=== PATIENT | female | born 1960 | race African-American/Black ===

== ENCOUNTER 2018-04-29 17:13 | Inpatient (IN) ==
[2018-04-29] MEDS ORDERED: VANCOMYCIN INJ 1,000 MG in SODIUM CHLORIDE 0.9% 250 ML IV STA (18:29)
[2018-04-29] MEDS ORDERED: GENTAMICIN INJ 80 MG in SODIUM CHLORIDE 0.9% 100 ML IV STA (18:29)
[2018-04-29] MEDS ORDERED: hydrALAZINE 20 MG/1 ML VIAL IV STA (18:30)
[2018-04-29] MEDS ORDERED: MORPHINE 4 MG/1 ML VIAL IV STA (18:30)
[2018-04-29] MEDS ORDERED: ONDANSETRON 4 MG/2 ML VIAL IV STA (18:30)
[2018-04-29 18:37] LABS: Basophils % 0.3 % (0.0-0.8); Eosinophils # 0.4 10*3/uL (0.0-0.87); Eosinophils % 5.8 % (0.00-10.9); Hematocrit 37.2 VOL% (35.7-47.0); Hemoglobin 12.1 GM/DL (12.0-16.0); Immature Granulocytes % 0.3 %; Immature Granulocytes Absolute 0.02 #; Lymphocytes # 1.9 10*3/uL (1.4-4.0); Lymphocytes % 26.3 % (21.3-54.2); Mean Corpuscular HGB Conc 32.5 GM/DL (32-36); Mean Corpuscular Hemoglobin 29 PG (27-34); Mean Corpuscular Volume 89.4 FL (87-102); Mean Platelet Volume 12.1 FL (9.6-12.0); Monocytes # 0.8 10*3/uL (0.11-0.8); Monocytes % 11.5 % (1.7-12.7); Neutrophils # 3.9 10*3/uL (1.4-7.4); Neutrophils % 55.8 % (38.7-73.9); Platelet Count 93 T/CUMM (130-400); Red Blood Count 4.16 MC/CUMM (3.8-5.5); Red Cell Distribution Width 14.3 % (9.3-17.3)
[2018-04-29 19:01] LABS: Albumin 2.9 G/DL (3.4-5.0); Bilirubin,Total 0.6 MG/DL (0.2-1.0); Calcium 8.2 MG/DL (8.5-10.1); Osmolality,Calculated 269.1 MOS/KG (273-304); Potassium 5.1 MMOL/L (3.5-5.1); Total Protein 7.9 G/DL (6.4-8.3)
[2018-04-29 19:11] LABS: Platelet Estimate Decreased
[2018-04-29 20:35] LABS: PT Patient Result 10.9 SECS
[2018-04-29] MEDS ORDERED: ONDANSETRON 4 MG/2 ML VIAL IV PRN (20:58)
[2018-04-29] MEDS ORDERED: MORPHINE 4 MG/1 ML VIAL IV PRN (20:58)
[2018-04-29] MEDS: PHENYTOIN ER 100 MG CAPSULE PO SCH (22:13)
[2018-04-30 05:54] LABS: Basophils % 0.4 % (0.0-0.8); Eosinophils # 0.5 10*3/uL (0.0-0.87); Eosinophils % 9.3 % (0.00-10.9); Hematocrit 33.1 VOL% (35.7-47.0); Hemoglobin 10.7 GM/DL (12.0-16.0); Immature Granulocytes % 0.2 %; Immature Granulocytes Absolute 0.01 #; Lymphocytes # 1.2 10*3/uL (1.4-4.0); Lymphocytes % 25.4 % (21.3-54.2); Mean Corpuscular HGB Conc 32.3 GM/DL (32-36); Mean Corpuscular Hemoglobin 29 PG (27-34); Mean Corpuscular Volume 89.9 FL (87-102); Mean Platelet Volume 11.2 FL (9.6-12.0); Monocytes # 0.6 10*3/uL (0.11-0.8); Neutrophils # 2.6 10*3/uL (1.4-7.4); Neutrophils % 52.7 % (38.7-73.9); Platelet Count 91 T/CUMM (130-400); Red Blood Count 3.68 MC/CUMM (3.8-5.5); Red Cell Distribution Width 14.3 % (9.3-17.3); White Blood Count 4.8 T/CUMM (4-12)
[2018-04-30 06:20] LABS: Albumin 2.3 G/DL (3.4-5.0); Bilirubin,Total 0.7 MG/DL (0.2-1.0); Calcium 7.8 MG/DL (8.5-10.1); Osmolality,Calculated 276.7 MOS/KG (273-304); Potassium 4.3 MMOL/L (3.5-5.1); Total Protein 6.3 G/DL (6.4-8.3)
[2018-04-30 06:21] LABS: Eosinophils 10 % (0-10); Hypochromasia 1+; Lymphocytes 22 % (20-55); Ovalocytes Slight; Platelet Estimate Decreased; Segmented Neutrophils 58 % (50-85); Total Cells Counted 100
[2018-04-30] MEDS: amLODIPine 10 MG TABLET PO SCH (09:15)
[2018-04-30] MEDS: PANTOPRAZOLE 40 MG TABLET PO SCH (09:15)
[2018-04-30] MEDS: CALCIUM ACETATE 667 MG CAPSULE PO SCH ×3 (09:15→17:40)
[2018-04-30] MEDS ORDERED: VANCOMYCIN INJ 500 MG in SODIUM CHLORIDE 0.9% 100 ML IV PRN (16:11)
[2018-04-30] MEDS ORDERED: GENTAMICIN INJ 60 MG in SODIUM CHLORIDE 0.9% 100 ML IV PRN (16:24)
[2018-04-30] MEDS ORDERED: GENTAMICIN INJ 90 MG in SODIUM CHLORIDE 0.9% 100 ML IV ONE (17:00)
[2018-04-30] MEDS ORDERED: VANCOMYCIN INJ 500 MG in SODIUM CHLORIDE 0.9% 100 ML IV ONE (17:00)
[2018-04-30] MEDS: PHENYTOIN ER 100 MG CAPSULE PO SCH (20:57)
[2018-05-01] MEDS: CALCIUM ACETATE 667 MG CAPSULE PO SCH ×2 (08:44→11:23)
[2018-05-01] MEDS: PANTOPRAZOLE 40 MG TABLET PO SCH (08:44)
[2018-05-01] MEDS: amLODIPine 10 MG TABLET PO SCH (08:44)
[2018-05-01 11:36] VITALS: BP 136/73
== END 2018-05-01 13:00 | disposition home or self-care (01) | DRG 981 ==
LOC: N.ED 17:13 → N.EDINP 18:58 → N.3E 19:09
PROVIDERS: ADMIT Surgery; ATTEND Surgery

== ENCOUNTER 2018-07-04 15:23 | Inpatient (IN) ==
[2018-07-04] MEDS ORDERED: METOCLOPRAMIDE 10 MG/2 ML VIAL IV STA ×2 (15:57→19:57)
[2018-07-04] MEDS ORDERED: KETOROLAC 30 MG/1 ML VIAL IV STA (15:57)
[2018-07-04] MEDS ORDERED: DICYCLOMINE 20 MG/2 ML AMP IM ONE (15:57)
[2018-07-04] MEDS ORDERED: ONDANSETRON 4 MG/2 ML VIAL IV STA ×2 (15:57→19:57)
[2018-07-04] MEDS ORDERED: ONDANSETRON 4 MG/2 ML VIAL ONE ×2 (16:18→19:59)
[2018-07-04] MEDS ORDERED: KETOROLAC 30 MG/1 ML VIAL ONE (16:18)
[2018-07-04] MEDS ORDERED: METOCLOPRAMIDE 10 MG/2 ML VIAL ONE ×2 (16:19→19:58)
[2018-07-04 16:26] LABS: Basophils % 0.6 % (0.0-0.8); Eosinophils # 0.6 10*3/uL (0.0-0.87); Hematocrit 32.1 VOL% (35.7-47.0); Hemoglobin 9.8 GM/DL (12.0-16.0); Immature Granulocytes % 0.3 %; Immature Granulocytes Absolute 0.02 #; Lymphocytes # 1.4 10*3/uL (1.4-4.0); Lymphocytes % 19.6 % (21.3-54.2); Mean Corpuscular HGB Conc 30.5 GM/DL (32-36); Mean Corpuscular Hemoglobin 29 PG (27-34); Mean Corpuscular Volume 93.9 FL (87-102); Mean Platelet Volume 11.6 FL (9.6-12.0); Monocytes # 0.5 10*3/uL (0.11-0.8); Monocytes % 7.1 % (1.7-12.7); Neutrophils # 4.4 10*3/uL (1.4-7.4); Neutrophils % 63.4 % (38.7-73.9); Platelet Count 139 T/CUMM (130-400); Red Blood Count 3.42 MC/CUMM (3.8-5.5); Red Cell Distribution Width 15.4 % (9.3-17.3)
[2018-07-04 16:37] LABS: Apearance,Urine CLEAR (Clear); Bacteria,Urine Few /HPF (Few); Bilirubin,Urine Negative (Negative); Blood, Urine Negative (Negative); Glucose,Urine (UA) Negative (Negative); Ketones,Urine Negative (Negative); Nitrite,Urine Negative (Negative); Protein,Urine 100 MG/DL; Squamous Epithelial Cell,Urine Occasional /HPF (0-10); Urine Color Yellow (Yellow); Urine Specific Gravity 1.006 (1.001-1.035); Urine Urobilinogen < 2.0 EU/DL (0.2-1.0); WBC,Urine 1 /HPF (0-6)
[2018-07-04 16:45] LABS: Albumin 3.4 G/DL (3.4-5.0); Bilirubin,Total 0.5 MG/DL (0.2-1.0); Osmolality,Calculated 281.3 MOS/KG (273-304); Potassium 3.3 MMOL/L (3.5-5.1); Total Protein 7.8 G/DL (6.4-8.3)
[2018-07-04] MEDS ORDERED: ACETAMINOPHEN 325 MG TABLET PO PRN (21:31)
[2018-07-04] MEDS ORDERED: DEXTROSE 50% 25 GM/50 ML VIAL IV PRN (21:31)
[2018-07-04] MEDS ORDERED: MORPHINE 4 MG/1 ML VIAL IV PRN (21:31)
[2018-07-04] MEDS ORDERED: GLUCAGON 1 MG VIAL IM PRN (21:31)
[2018-07-04] MEDS: PHENYTOIN ER 100 MG CAPSULE PO SCH (21:50)
[2018-07-04] MEDS: INSULIN LISPRO 100 UNIT/ML SUBCUT SCH (21:50)
[2018-07-04] MEDS: ONDANSETRON 4 MG/2 ML VIAL IV PRN (21:51)
[2018-07-05] MEDS: ONDANSETRON 4 MG/2 ML VIAL IV PRN (04:47)
[2018-07-05 05:58] LABS: Basophils % 0.3 % (0.0-0.8); Hematocrit 21.8 VOL% (35.7-47.0); Immature Granulocytes % 0.3 %; Immature Granulocytes Absolute 0.02 #; Lymphocytes # 0.9 10*3/uL (1.4-4.0); Lymphocytes % 12.6 % (21.3-54.2); Mean Corpuscular HGB Conc 29.8 GM/DL (32-36); Mean Corpuscular Hemoglobin 28 PG (27-34); Mean Platelet Volume 11.6 FL (9.6-12.0); Monocytes # 0.5 10*3/uL (0.11-0.8); Monocytes % 6.8 % (1.7-12.7); NRBC # 0.02 10*3/uL; Neutrophils # 5.4 10*3/uL (1.4-7.4); Platelet Count 133 T/CUMM (130-400); Red Cell Distribution Width 15.9 % (9.3-17.3); White Blood Count 6.7 T/CUMM (4-12)
[2018-07-05 06:32] LABS: Calcium 7.6 MG/DL (8.5-10.1); Osmolality,Calculated 275.7 MOS/KG (273-304); Potassium 4.1 MMOL/L (3.5-5.1)
[2018-07-05 06:33] LABS: Troponin I 0.069 NG/ML (0.00-0.045)
[2018-07-05 07:37] LABS: Red Blood Count 2.32 MC/CUMM (3.8-5.5)
[2018-07-05 07:39] LABS: Hemoglobin 6.5 GM/DL (12.0-16.0)
[2018-07-05 08:46] LABS: Hematocrit 20.7 VOL% (35.7-47.0)
[2018-07-05] MEDS: CALCIUM ACETATE 667 MG CAPSULE PO SCH ×3 (09:01→18:11)
[2018-07-05 09:02] LABS: Hemoglobin 6.3 GM/DL (12.0-16.0)
[2018-07-05] MEDS: PANTOPRAZOLE 40 MG TABLET PO SCH (09:02)
[2018-07-05] MEDS: amLODIPine 10 MG TABLET PO SCH (09:02)
[2018-07-05] MEDS: INSULIN LISPRO 100 UNIT/ML SUBCUT SCH ×4 (09:04→22:05)
[2018-07-05] MEDS ORDERED: SODIUM CHLORIDE 0.9% 1,000 ML IV PRN (09:17)
[2018-07-05] MEDS: PHENYTOIN ER 100 MG CAPSULE PO SCH (21:07)
[2018-07-06 06:01] LABS: Basophils % 0.5 % (0.0-0.8); Eosinophils # 0.5 10*3/uL (0.0-0.87); Eosinophils % 7.9 % (0.00-10.9); Hematocrit 19.7 VOL% (35.7-47.0); Immature Granulocytes % 0.5 %; Immature Granulocytes Absolute 0.03 #; Lymphocytes # 1.6 10*3/uL (1.4-4.0); Lymphocytes % 27.3 % (21.3-54.2); Mean Corpuscular Hemoglobin 29 PG (27-34); Mean Corpuscular Volume 93.4 FL (87-102); Mean Platelet Volume 11.2 FL (9.6-12.0); Monocytes # 0.6 10*3/uL (0.11-0.8); Monocytes % 9.7 % (1.7-12.7); NRBC # 0.02 10*3/uL; Neutrophils # 3.1 10*3/uL (1.4-7.4); Neutrophils % 54.1 % (38.7-73.9); Platelet Count 128 T/CUMM (130-400); Red Blood Count 2.11 MC/CUMM (3.8-5.5); Red Cell Distribution Width 17.4 % (9.3-17.3); White Blood Count 5.8 T/CUMM (4-12)
[2018-07-06 06:04] LABS: Hemoglobin 6.1 GM/DL (12.0-16.0)
[2018-07-06 06:28] LABS: Calcium 7.2 MG/DL (8.5-10.1); Osmolality,Calculated 278.5 MOS/KG (273-304); Potassium 4.4 MMOL/L (3.5-5.1)
[2018-07-06] MEDS ORDERED: SODIUM CHLORIDE 0.9% 1,000 ML IV PRN ×4 (07:31→07:47)
[2018-07-06] MEDS: CALCIUM ACETATE 667 MG CAPSULE PO SCH ×3 (08:22→17:07)
[2018-07-06] MEDS: PANTOPRAZOLE 40 MG TABLET PO SCH (08:25)
[2018-07-06] MEDS: INSULIN LISPRO 100 UNIT/ML SUBCUT SCH ×4 (11:18→21:27)
[2018-07-06] MEDS: amLODIPine 10 MG TABLET PO SCH (14:03)
[2018-07-06] MEDS: PHENYTOIN ER 100 MG CAPSULE PO SCH (21:26)
[2018-07-07 06:03] LABS: Basophils % 0.6 % (0.0-0.8); Eosinophils # 0.8 10*3/uL (0.0-0.87); Eosinophils % 11.8 % (0.00-10.9); Hematocrit 28.4 VOL% (35.7-47.0); Immature Granulocytes % 0.3 %; Immature Granulocytes Absolute 0.02 #; Lymphocytes # 1.4 10*3/uL (1.4-4.0); Lymphocytes % 20.3 % (21.3-54.2); Mean Corpuscular Hemoglobin 28 PG (27-34); Mean Corpuscular Volume 91.6 FL (87-102); Mean Platelet Volume 11.3 FL (9.6-12.0); Monocytes # 0.7 10*3/uL (0.11-0.8); Monocytes % 10.2 % (1.7-12.7); Neutrophils # 3.9 10*3/uL (1.4-7.4); Neutrophils % 56.8 % (38.7-73.9); Platelet Count 135 T/CUMM (130-400); Red Cell Distribution Width 17.2 % (9.3-17.3); White Blood Count 6.9 T/CUMM (4-12)
[2018-07-07 06:23] LABS: Hemoglobin 8.8 GM/DL (12.0-16.0)
[2018-07-07 06:35] LABS: Calcium 7.8 MG/DL (8.5-10.1); Osmolality,Calculated 277.5 MOS/KG (273-304); Potassium 4.5 MMOL/L (3.5-5.1)
[2018-07-07 06:45] LABS: Eosinophils 6 % (0-10); Lymphocytes 16 % (20-55); Segmented Neutrophils 70 % (50-85); Total Cells Counted 100
[2018-07-07 06:46] LABS: Platelet Estimate Decreased
[2018-07-07] MEDS: INSULIN LISPRO 100 UNIT/ML SUBCUT SCH ×4 (08:05→21:29)
[2018-07-07] MEDS: amLODIPine 10 MG TABLET PO SCH (08:07)
[2018-07-07] MEDS: PANTOPRAZOLE 40 MG TABLET PO SCH (08:07)
[2018-07-07] MEDS: CALCIUM ACETATE 667 MG CAPSULE PO SCH ×3 (08:08→16:09)
[2018-07-07] MEDS ORDERED: EPOETIN ALFA 10,000 UNIT/1 ML VIAL IV PRN (10:20)
[2018-07-07] MEDS: PHENYTOIN ER 100 MG CAPSULE PO SCH (21:28)
[2018-07-08 06:24] LABS: Basophils % 0.4 % (0.0-0.8); Eosinophils # 1.1 10*3/uL (0.0-0.87); Eosinophils % 15.5 % (0.00-10.9); Hematocrit 28.3 VOL% (35.7-47.0); Hemoglobin 8.8 GM/DL (12.0-16.0); Immature Granulocytes % 0.3 %; Immature Granulocytes Absolute 0.02 #; Lymphocytes # 1.4 10*3/uL (1.4-4.0); Lymphocytes % 19.8 % (21.3-54.2); Mean Corpuscular HGB Conc 31.1 GM/DL (32-36); Mean Corpuscular Hemoglobin 29 PG (27-34); Mean Corpuscular Volume 92.8 FL (87-102); Mean Platelet Volume 11.1 FL (9.6-12.0); Monocytes # 0.7 10*3/uL (0.11-0.8); Monocytes % 10.1 % (1.7-12.7); Neutrophils # 3.8 10*3/uL (1.4-7.4); Neutrophils % 53.9 % (38.7-73.9); Platelet Count 146 T/CUMM (130-400); Red Blood Count 3.05 MC/CUMM (3.8-5.5); Red Cell Distribution Width 16.7 % (9.3-17.3)
[2018-07-08 06:29] LABS: Calcium 7.6 MG/DL (8.5-10.1); Osmolality,Calculated 279.8 MOS/KG (273-304); Potassium 4.6 MMOL/L (3.5-5.1)
[2018-07-08 07:20] LABS: Band Neutrophils 2 % (0-10); Eosinophils 14 % (0-10); Lymphocytes 19 % (20-55); Segmented Neutrophils 59 % (50-85); Total Cells Counted 100
[2018-07-08 07:21] LABS: Anisocytosis 1+; Hypochromasia 1+; Platelet Estimate Normal
[2018-07-08] MEDS: INSULIN LISPRO 100 UNIT/ML SUBCUT SCH (07:56)
[2018-07-08] MEDS: PANTOPRAZOLE 40 MG TABLET PO SCH (08:13)
[2018-07-08] MEDS: CALCIUM ACETATE 667 MG CAPSULE PO SCH ×3 (08:13→16:14)
[2018-07-08] MEDS: amLODIPine 10 MG TABLET PO SCH (08:14)
[2018-07-08] MEDS: PHENYTOIN ER 100 MG CAPSULE PO SCH (21:29)
[2018-07-09 07:13] LABS: Basophils % 0.3 % (0.0-0.8); Eosinophils # 1.1 10*3/uL (0.0-0.87); Eosinophils % 15.2 % (0.00-10.9); Hemoglobin 9.6 GM/DL (12.0-16.0); Immature Granulocytes % 0.4 %; Immature Granulocytes Absolute 0.03 #; Lymphocytes # 1.1 10*3/uL (1.4-4.0); Lymphocytes % 15.9 % (21.3-54.2); Mean Corpuscular Hemoglobin 28 PG (27-34); Mean Corpuscular Volume 91.4 FL (87-102); Mean Platelet Volume 10.9 FL (9.6-12.0); Monocytes # 0.8 10*3/uL (0.11-0.8); Monocytes % 11.3 % (1.7-12.7); Neutrophils % 56.9 % (38.7-73.9); Platelet Count 147 T/CUMM (130-400); Red Blood Count 3.39 MC/CUMM (3.8-5.5); Red Cell Distribution Width 16.3 % (9.3-17.3); White Blood Count 7.1 T/CUMM (4-12)
[2018-07-09 07:26] LABS: Calcium 7.4 MG/DL (8.5-10.1); Osmolality,Calculated 274.1 MOS/KG (273-304); Potassium 4.8 MMOL/L (3.5-5.1)
[2018-07-09 07:34] LABS: Anisocytosis 1+; Eosinophils 16 % (0-10); Lymphocytes 7 % (20-55); Platelet Estimate Normal; Segmented Neutrophils 68 % (50-85); Total Cells Counted 100
[2018-07-09] MEDS: amLODIPine 10 MG TABLET PO SCH (10:34)
[2018-07-09] MEDS: PANTOPRAZOLE 40 MG TABLET PO SCH (10:34)
[2018-07-09] MEDS: CALCIUM ACETATE 667 MG CAPSULE PO SCH ×3 (10:34→17:49)
[2018-07-09] MEDS: PHENYTOIN ER 100 MG CAPSULE PO SCH (21:19)
[2018-07-10 06:51] LABS: Basophils % 0.3 % (0.0-0.8); Eosinophils # 0.9 10*3/uL (0.0-0.87); Eosinophils % 14.7 % (0.00-10.9); Hematocrit 30.4 VOL% (35.7-47.0); Hemoglobin 9.7 GM/DL (12.0-16.0); Immature Granulocytes % 0.3 %; Immature Granulocytes Absolute 0.02 #; Lymphocytes # 1.2 10*3/uL (1.4-4.0); Lymphocytes % 19.7 % (21.3-54.2); Mean Corpuscular HGB Conc 31.9 GM/DL (32-36); Mean Corpuscular Hemoglobin 28 PG (27-34); Mean Corpuscular Volume 88.6 FL (87-102); Mean Platelet Volume 11.3 FL (9.6-12.0); Monocytes # 0.8 10*3/uL (0.11-0.8); Monocytes % 12.7 % (1.7-12.7); Neutrophils # 3.3 10*3/uL (1.4-7.4); Neutrophils % 52.3 % (38.7-73.9); Platelet Count 169 T/CUMM (130-400); Red Blood Count 3.43 MC/CUMM (3.8-5.5); Red Cell Distribution Width 15.9 % (9.3-17.3); White Blood Count 6.2 T/CUMM (4-12)
[2018-07-10 07:19] LABS: Eosinophils 15 % (0-10); Hypochromasia 1+; Lymphocytes 18 % (20-55); Platelet Estimate Adequate; Segmented Neutrophils 53 % (50-85); Total Cells Counted 100
[2018-07-10 07:22] LABS: Calcium 7.7 MG/DL (8.5-10.1); Osmolality,Calculated 278.2 MOS/KG (273-304); Potassium 4.9 MMOL/L (3.5-5.1)
[2018-07-10] MEDS: PANTOPRAZOLE 40 MG TABLET PO SCH (08:34)
[2018-07-10] MEDS: amLODIPine 10 MG TABLET PO SCH (08:34)
[2018-07-10] MEDS: CALCIUM ACETATE 667 MG CAPSULE PO SCH (08:34)
[2018-07-10 09:14] VITALS: BP 123/78
== END 2018-07-10 12:08 | disposition home or self-care (01) | DRG 699 ==
LOC: N.ED 15:23 → SUATTDRO 18:50 → N.EDINP 18:50 → N.5E 21:13
PROVIDERS: ADMIT Internal Medicine

== ENCOUNTER 2018-07-23 11:34 | Inpatient (IN) ==
[2018-07-23] MEDS ORDERED: MORPHINE 4 MG/1 ML VIAL IV STA ×2 (12:19→14:29)
[2018-07-23] MEDS ORDERED: ONDANSETRON 4 MG/2 ML VIAL IV STA ×2 (12:19→14:29)
[2018-07-23 13:10] LABS: Bacteria,Urine Many /HPF (Few); Squamous Epithelial Cell,Urine Many /HPF (0-10); WBC,Urine 11 /HPF (0-6)
[2018-07-23 13:28] LABS: Apearance,Urine Slightly Cloudy (Clear); Glucose,Urine (UA) Negative (Negative); Ketones,Urine Negative (Negative); Nitrite,Urine Negative (Negative); Protein,Urine >=500 MG/DL; Urine Color Amber (Yellow); Urine Specific Gravity 1.005 (1.001-1.035)
[2018-07-23 13:29] LABS: Bilirubin,Urine Negative (Negative); Blood, Urine Trace mg/dL (Negative); Urine Urobilinogen 0.2 EU/DL (0.2-1.0)
[2018-07-23 13:47] LABS: Basophils % 0.4 % (0.0-0.8); Eosinophils # 0.3 10*3/uL (0.0-0.87); Eosinophils % 4.6 % (0.00-10.9); Hematocrit 32.3 VOL% (35.7-47.0); Hemoglobin 9.6 GM/DL (12.0-16.0); Immature Granulocytes % 0.3 %; Immature Granulocytes Absolute 0.02 #; Lymphocytes # 0.7 10*3/uL (1.4-4.0); Lymphocytes % 10.2 % (21.3-54.2); Mean Corpuscular HGB Conc 29.7 GM/DL (32-36); Mean Corpuscular Hemoglobin 27 PG (27-34); Mean Corpuscular Volume 91.2 FL (87-102); Mean Platelet Volume 10.1 FL (9.6-12.0); Monocytes # 0.4 10*3/uL (0.11-0.8); Monocytes % 6.2 % (1.7-12.7); Neutrophils # 5.3 10*3/uL (1.4-7.4); Neutrophils % 78.3 % (38.7-73.9); Platelet Count 170 T/CUMM (130-400); Red Blood Count 3.54 MC/CUMM (3.8-5.5); Red Cell Distribution Width 16.2 % (9.3-17.3); White Blood Count 6.8 T/CUMM (4-12)
[2018-07-23 14:10] LABS: Lactic Acid 0.6 MMOL/L (0.4-2.0)
[2018-07-23 14:13] LABS: Bilirubin,Total 0.5 MG/DL (0.2-1.0); Calcium 8.3 MG/DL (8.5-10.1); Osmolality,Calculated 280.4 MOS/KG (273-304); Potassium 3.7 MMOL/L (3.5-5.1); Total Protein 7.6 G/DL (6.4-8.3)
[2018-07-23] MEDS ORDERED: hydrALAZINE 20 MG/1 ML VIAL IV PRN (15:26)
[2018-07-23] MEDS ORDERED: PROMETHAZINE 25 MG/1 ML VIAL IM PRN (15:27)
[2018-07-23] MEDS ORDERED: hydrALAZINE 20 MG/1 ML VIAL IV STA (15:32)
[2018-07-23] MEDS ORDERED: LORazepam 2 MG/1 ML VIAL IV STA (15:33)
[2018-07-23] MEDS: SODIUM CHLORIDE 0.45% 1,000 ML IV SCH (16:19)
[2018-07-23] MEDS: cefTRIAXone 1,000 MG in SYRINGE 1 EACH IV SCH (16:56)
[2018-07-23] MEDS: cloNIDine 0.3 MG/24 HR PATCH TRANSDERM SCH (17:19)
[2018-07-23] MEDS: PHENYTOIN 100 MG/2 ML VIAL IV SCH ×2 (17:19→23:40)
[2018-07-23] MEDS: ONDANSETRON 4 MG/2 ML VIAL IV PRN (18:23)
[2018-07-24 05:13] LABS: Basophils % 0.5 % (0.0-0.8); Eosinophils # 0.2 10*3/uL (0.0-0.87); Eosinophils % 3.2 % (0.00-10.9); Hematocrit 31.8 VOL% (35.7-47.0); Hemoglobin 9.3 GM/DL (12.0-16.0); Immature Granulocytes % 0.5 %; Immature Granulocytes Absolute 0.03 #; Lymphocytes # 1.5 10*3/uL (1.4-4.0); Lymphocytes % 22.5 % (21.3-54.2); Mean Corpuscular HGB Conc 29.2 GM/DL (32-36); Mean Corpuscular Hemoglobin 27 PG (27-34); Mean Corpuscular Volume 91.9 FL (87-102); Mean Platelet Volume 10.7 FL (9.6-12.0); Monocytes # 0.5 10*3/uL (0.11-0.8); Monocytes % 7.8 % (1.7-12.7); Neutrophils # 4.3 10*3/uL (1.4-7.4); Neutrophils % 65.5 % (38.7-73.9); Platelet Count 176 T/CUMM (130-400); Red Blood Count 3.46 MC/CUMM (3.8-5.5); Red Cell Distribution Width 16.2 % (9.3-17.3); White Blood Count 6.6 T/CUMM (4-12)
[2018-07-24 05:35] LABS: Albumin 2.8 G/DL (3.4-5.0); Bilirubin,Total 0.8 MG/DL (0.2-1.0); Calcium 8.1 MG/DL (8.5-10.1); Osmolality,Calculated 281.3 MOS/KG (273-304); Total Protein 7.2 G/DL (6.4-8.3)
[2018-07-24] MEDS: PHENYTOIN 100 MG/2 ML VIAL IV SCH ×2 (10:31→17:26)
[2018-07-24] MEDS: cefTRIAXone 1,000 MG in SYRINGE 1 EACH IV SCH (17:23)
[2018-07-24] MEDS: SODIUM CHLORIDE 0.45% 1,000 ML IV SCH (17:29)
[2018-07-25] MEDS: PHENYTOIN 100 MG/2 ML VIAL IV SCH (01:52)
[2018-07-25 06:04] LABS: Basophils # 0.1 10*3/uL (0.0-0.2); Basophils % 0.6 % (0.0-0.8); Eosinophils # 0.7 10*3/uL (0.0-0.87); Eosinophils % 8.7 % (0.00-10.9); Hematocrit 33.1 VOL% (35.7-47.0); Hemoglobin 9.8 GM/DL (12.0-16.0); Immature Granulocytes % 0.4 %; Immature Granulocytes Absolute 0.03 #; Lymphocytes # 1.2 10*3/uL (1.4-4.0); Lymphocytes % 15.2 % (21.3-54.2); Mean Corpuscular HGB Conc 29.6 GM/DL (32-36); Mean Corpuscular Hemoglobin 28 PG (27-34); Mean Corpuscular Volume 92.7 FL (87-102); Monocytes # 0.4 10*3/uL (0.11-0.8); Monocytes % 5.3 % (1.7-12.7); Neutrophils # 5.4 10*3/uL (1.4-7.4); Neutrophils % 69.8 % (38.7-73.9); Platelet Count 172 T/CUMM (130-400); Red Blood Count 3.57 MC/CUMM (3.8-5.5); Red Cell Distribution Width 15.7 % (9.3-17.3); White Blood Count 7.7 T/CUMM (4-12)
[2018-07-25 06:17] LABS: Albumin 2.7 G/DL (3.4-5.0); Bilirubin,Total 0.9 MG/DL (0.2-1.0); Calcium 7.5 MG/DL (8.5-10.1); Osmolality,Calculated 280.7 MOS/KG (273-304); Potassium 4.4 MMOL/L (3.5-5.1); Total Protein 7.2 G/DL (6.4-8.3)
[2018-07-25] MEDS: MORPHINE 4 MG/1 ML VIAL IV PRN ×2 (15:32→20:35)
[2018-07-25] MEDS: ONDANSETRON 4 MG/2 ML VIAL IV PRN ×2 (15:37→20:35)
[2018-07-25] MEDS: SODIUM CHLORIDE 0.45% 1,000 ML IV SCH (15:40)
[2018-07-25] MEDS: IRON SUCROSE 100 MG/5 ML VIAL IV SCH (16:08)
[2018-07-25] MEDS: cefTRIAXone 1,000 MG in SYRINGE 1 EACH IV SCH (16:28)
[2018-07-25] MEDS: PHENYTOIN INJ 200 MG in SODIUM CHLORIDE 0.9% 100 ML IV SCH (20:38)
[2018-07-26 05:42] LABS: Basophils % 0.5 % (0.0-0.8); Eosinophils # 0.8 10*3/uL (0.0-0.87); Eosinophils % 13.3 % (0.00-10.9); Hematocrit 32.4 VOL% (35.7-47.0); Hemoglobin 9.5 GM/DL (12.0-16.0); Immature Granulocytes % 0.2 %; Immature Granulocytes Absolute 0.01 #; Lymphocytes # 1.1 10*3/uL (1.4-4.0); Lymphocytes % 18.9 % (21.3-54.2); Mean Corpuscular HGB Conc 29.3 GM/DL (32-36); Mean Corpuscular Hemoglobin 27 PG (27-34); Mean Corpuscular Volume 91.5 FL (87-102); Mean Platelet Volume 10.7 FL (9.6-12.0); Monocytes # 0.4 10*3/uL (0.11-0.8); Monocytes % 6.6 % (1.7-12.7); Neutrophils # 3.4 10*3/uL (1.4-7.4); Neutrophils % 60.5 % (38.7-73.9); Platelet Count 141 T/CUMM (130-400); Red Blood Count 3.54 MC/CUMM (3.8-5.5); Red Cell Distribution Width 15.4 % (9.3-17.3); White Blood Count 5.6 T/CUMM (4-12)
[2018-07-26 05:57] LABS: Albumin 2.7 G/DL (3.4-5.0); Bilirubin,Total 0.9 MG/DL (0.2-1.0); Calcium 7.7 MG/DL (8.5-10.1); Osmolality,Calculated 275.8 MOS/KG (273-304); Potassium 4.5 MMOL/L (3.5-5.1); Total Protein 7.4 G/DL (6.4-8.3)
[2018-07-26 06:10] LABS: Eosinophils 9 % (0-10); Hypochromasia 1+; Lymphocytes 19 % (20-55); Microcytosis 1+; Segmented Neutrophils 70 % (50-85); Total Cells Counted 100
[2018-07-26 06:11] LABS: Ovalocytes Few; Platelet Estimate Adequate
[2018-07-26 06:12] LABS: Atypical Lymphocytes Few
[2018-07-26] MEDS: MORPHINE 4 MG/1 ML VIAL IV PRN ×3 (08:30→23:26)
[2018-07-26] MEDS: PHENYTOIN INJ 200 MG in SODIUM CHLORIDE 0.9% 100 ML IV SCH ×2 (08:32→20:06)
[2018-07-26] MEDS: cefTRIAXone 1,000 MG in SYRINGE 1 EACH IV SCH (17:00)
[2018-07-26] MEDS: SODIUM CHLORIDE 0.45% 1,000 ML IV SCH (17:09)
[2018-07-27] MEDS ORDERED: ceFAZolin 1,000 MG in SYRINGE 1 EACH IV ONE (06:30)
[2018-07-27] MEDS ORDERED: MANNITOL 100 GM/500 ML BAG IV ONE (06:38)
[2018-07-27] MEDS ORDERED: ALBUMIN 5% 12.5 GM/250 ML VIAL IV ONE (06:38)
[2018-07-27] MEDS ORDERED: MICROFIBRILLAR COLLAGEN POWDER 1 GM CAN TOP ONE (08:48)
[2018-07-27 09:05] LABS: ABG Base Excess -4.3 MMOL/L (-2.5-2.5); ABG HCO3 20.9 MMOL/L (20-26); ABG Oxygen Saturation 99.9 % (95-100); ABG PCO2 28.4 MM HG (35-48); ABG PH 7.434 (7.35-7.45); ABG TCO2 17.3 MMOL/L (23-27); Glucose Heart Surgery 96 MG/DL (74-106); Hematocrit Heart Surgery 30.3 PERCENT (37-47); Hemoglobin Heart Surgery 9.8 G/DL (12.0-16.0); Potassium Heart/CVR 4.2 MMOL/L (3.5-5.1)
[2018-07-27] MEDS ORDERED: ROPIVACAINE 0.5% 30 ML VIAL ONE (09:15)
[2018-07-27] MEDS ORDERED: PROPOFOL 200 MG/20 ML VIAL IV ONE (10:01)
[2018-07-27 10:02] LABS: Apearance,Urine CLEAR (Clear); Bilirubin,Urine Negative (Negative); Blood, Urine Moderate mg/dL (Negative); Glucose,Urine (UA) Negative (Negative); Hyaline Casts,Urine 1 /LPF (0-3); Ketones,Urine Negative (Negative); Mucus,Urine Occasional /LPF (Occasional); Nitrite,Urine Negative (Negative); Protein,Urine 100 MG/DL; RBC,Urine 20 /HPF (0-4); Squamous Epithelial Cell,Urine Occasional /HPF (0-10); Urine Color Amber (Yellow); Urine Specific Gravity 1.015 (1.001-1.035); Urine Urobilinogen < 2.0 EU/DL (0.2-1.0); WBC,Urine 24 /HPF (0-6)
[2018-07-27] MEDS ORDERED: DESFLURANE 1 UNIT/15 MINUTE INH ONE (10:02)
[2018-07-27] MEDS ORDERED: ONDANSETRON 4 MG/2 ML VIAL ONE (10:03)
[2018-07-27] MEDS ORDERED: MIDAZOLAM 2 MG/2 ML VIAL ONE (10:03)
[2018-07-27] MEDS ORDERED: NEOSTIGMINE 10 MG/10 ML VIAL ONE (10:04)
[2018-07-27] MEDS ORDERED: ESMOLOL 100 MG/10 ML VIAL IV ONE (10:04)
[2018-07-27] MEDS ORDERED: GLYCOPYRROLATE 0.4 MG/2 ML VIAL ONE (10:04)
[2018-07-27] MEDS ORDERED: ROCURONIUM 100 MG/10 ML VIAL IV ONE (10:04)
[2018-07-27] MEDS ORDERED: LABETALOL 100 MG/20 ML VIAL IV ONE (10:04)
[2018-07-27] MEDS ORDERED: SODIUM CHLORIDE 0.9% 500 ML IV ONE (10:04)
[2018-07-27] MEDS ORDERED: PHENYLEPHRINE 1 MG/10 ML SYRINGE IV ONE (10:04)
[2018-07-27] MEDS: MORPHINE 4 MG/1 ML VIAL IV PRN ×4 (10:48→21:55)
[2018-07-27] MEDS: ONDANSETRON 4 MG/2 ML VIAL IV PRN ×2 (10:49→14:53)
[2018-07-27] MEDS: PHENYTOIN INJ 200 MG in SODIUM CHLORIDE 0.9% 100 ML IV SCH ×2 (10:50→20:37)
[2018-07-27] MEDS: cefTRIAXone 1,000 MG in SYRINGE 1 EACH IV SCH (17:00)
[2018-07-27] MEDS: SODIUM CHLORIDE 0.45% 1,000 ML IV SCH (17:09)
[2018-07-28] MEDS: MORPHINE 4 MG/1 ML VIAL IV PRN ×4 (02:34→16:08)
[2018-07-28] MEDS: ONDANSETRON 4 MG/2 ML VIAL IV PRN ×2 (10:33→16:09)
[2018-07-28] MEDS: PHENYTOIN INJ 200 MG in SODIUM CHLORIDE 0.9% 100 ML IV SCH (16:36)
[2018-07-28] MEDS: PHENYTOIN ER 100 MG CAPSULE PO SCH ×2 (17:20→22:33)
[2018-07-28] MEDS: cefTRIAXone 1,000 MG in SYRINGE 1 EACH IV SCH (17:22)
[2018-07-29] MEDS: MORPHINE 4 MG/1 ML VIAL IV PRN ×3 (04:47→19:56)
[2018-07-29 05:26] LABS: Basophils % 0.3 % (0.0-0.8); Eosinophils # 0.6 10*3/uL (0.0-0.87); Eosinophils % 10.3 % (0.00-10.9); Hematocrit 26.3 VOL% (35.7-47.0); Immature Granulocytes % 0.5 %; Immature Granulocytes Absolute 0.03 #; Lymphocytes # 0.7 10*3/uL (1.4-4.0); Lymphocytes % 11.4 % (21.3-54.2); Mean Corpuscular HGB Conc 30.4 GM/DL (32-36); Mean Corpuscular Hemoglobin 27 PG (27-34); Mean Corpuscular Volume 89.8 FL (87-102); Mean Platelet Volume 12.1 FL (9.6-12.0); Monocytes # 0.6 10*3/uL (0.11-0.8); Monocytes % 9.7 % (1.7-12.7); Neutrophils % 67.8 % (38.7-73.9); Platelet Count 117 T/CUMM (130-400); Red Blood Count 2.93 MC/CUMM (3.8-5.5)
[2018-07-29 05:42] LABS: Albumin 2.6 G/DL (3.4-5.0); Calcium 7.2 MG/DL (8.5-10.1); Osmolality,Calculated 268.4 MOS/KG (273-304); Potassium 4.6 MMOL/L (3.5-5.1); Total Protein 6.8 G/DL (6.4-8.3)
[2018-07-29] MEDS: CALCIUM ACETATE 667 MG CAPSULE PO SCH ×3 (10:08→17:28)
[2018-07-29] MEDS: PHENYTOIN ER 100 MG CAPSULE PO SCH ×2 (10:09→21:52)
[2018-07-29] MEDS: cefTRIAXone 1,000 MG in SYRINGE 1 EACH IV SCH (18:14)
[2018-07-29] MEDS ORDERED: MORPHINE 4 MG/1 ML VIAL ONE (19:53)
[2018-07-30 05:40] LABS: Basophils % 0.2 % (0.0-0.8); Eosinophils # 0.8 10*3/uL (0.0-0.87); Eosinophils % 13.9 % (0.00-10.9); Hematocrit 23.6 VOL% (35.7-47.0); Hemoglobin 7.2 GM/DL (12.0-16.0); Immature Granulocytes % 0.2 %; Immature Granulocytes Absolute 0.01 #; Lymphocytes # 0.9 10*3/uL (1.4-4.0); Lymphocytes % 15.6 % (21.3-54.2); Mean Corpuscular HGB Conc 30.5 GM/DL (32-36); Mean Corpuscular Hemoglobin 27 PG (27-34); Mean Corpuscular Volume 89.1 FL (87-102); Mean Platelet Volume 11.9 FL (9.6-12.0); Monocytes # 0.5 10*3/uL (0.11-0.8); Monocytes % 9.2 % (1.7-12.7); Neutrophils # 3.5 10*3/uL (1.4-7.4); Neutrophils % 60.9 % (38.7-73.9); Platelet Count 128 T/CUMM (130-400); Red Blood Count 2.65 MC/CUMM (3.8-5.5); Red Cell Distribution Width 15.8 % (9.3-17.3); White Blood Count 5.8 T/CUMM (4-12)
[2018-07-30 06:08] LABS: Albumin 2.3 G/DL (3.4-5.0); Bilirubin,Total 0.7 MG/DL (0.2-1.0); Calcium 6.9 MG/DL (8.5-10.1); Osmolality,Calculated 266.8 MOS/KG (273-304); Potassium 3.9 MMOL/L (3.5-5.1); Total Protein 6.2 G/DL (6.4-8.3)
[2018-07-30 06:09] LABS: Eosinophils 11 % (0-10); Lymphocytes 20 % (20-55); Segmented Neutrophils 65 % (50-85); Total Cells Counted 100
[2018-07-30 06:10] LABS: Platelet Estimate Decreased; Polychromasia Few
[2018-07-30] MEDS ORDERED: SODIUM CHLORIDE 0.9% 1,000 ML IV PRN (07:06)
[2018-07-30] MEDS: CALCIUM ACETATE 667 MG CAPSULE PO SCH ×3 (10:02→18:15)
[2018-07-30] MEDS: SODIUM CHLORIDE 1 GM TABLET PO SCH ×2 (10:02→20:38)
[2018-07-30] MEDS: PHENYTOIN ER 100 MG CAPSULE PO SCH ×2 (10:03→20:38)
[2018-07-30] MEDS: cloNIDine 0.3 MG/24 HR PATCH TRANSDERM SCH (10:03)
[2018-07-30] MEDS ORDERED: BISACODYL 10 MG SUPP RECTAL ONE (10:14)
[2018-07-30] MEDS: MORPHINE 4 MG/1 ML VIAL IV PRN (10:56)
[2018-07-30] MEDS: ONDANSETRON 4 MG/2 ML VIAL IV PRN ×2 (10:56→20:58)
[2018-07-30 14:19] LABS: Hematocrit 25.7 VOL% (35.7-47.0); Hemoglobin 7.5 GM/DL (12.0-16.0)
[2018-07-30] MEDS: cefTRIAXone 1,000 MG in SYRINGE 1 EACH IV SCH (18:15)
[2018-07-30] MEDS: SODIUM CHLORIDE 0.45% 1,000 ML IV SCH ×2 (19:42→19:43)
[2018-07-31 05:44] LABS: Basophils % 0.4 % (0.0-0.8); Eosinophils # 0.6 10*3/uL (0.0-0.87); Eosinophils % 11.6 % (0.00-10.9); Hematocrit 23.3 VOL% (35.7-47.0); Immature Granulocytes % 0.2 %; Immature Granulocytes Absolute 0.01 #; Lymphocytes # 0.7 10*3/uL (1.4-4.0); Lymphocytes % 13.8 % (21.3-54.2); Mean Corpuscular Hemoglobin 26 PG (27-34); Mean Corpuscular Volume 87.9 FL (87-102); Mean Platelet Volume 10.7 FL (9.6-12.0); Monocytes # 0.5 10*3/uL (0.11-0.8); Monocytes % 10.2 % (1.7-12.7); Neutrophils # 3.2 10*3/uL (1.4-7.4); Neutrophils % 63.8 % (38.7-73.9); Platelet Count 152 T/CUMM (130-400); Red Blood Count 2.65 MC/CUMM (3.8-5.5); Red Cell Distribution Width 15.8 % (9.3-17.3)
[2018-07-31 06:21] LABS: Albumin 2.3 G/DL (3.4-5.0); Bilirubin,Total 0.8 MG/DL (0.2-1.0); Osmolality,Calculated 265.2 MOS/KG (273-304); Potassium 4.5 MMOL/L (3.5-5.1); Total Protein 6.2 G/DL (6.4-8.3)
[2018-07-31 06:37] LABS: Eosinophils 22 % (0-10); Lymphocytes 15 % (20-55); Metamyelocytes 1 %; Microcytosis Slight; Platelet Estimate Adequate; Polychromasia Few; Segmented Neutrophils 57 % (50-85); Total Cells Counted 100
[2018-07-31] MEDS ORDERED: EPOETIN ALFA 2,000 UNIT/1 ML VIAL IV PRN (08:54)
[2018-07-31] MEDS: MORPHINE 4 MG/1 ML VIAL IV PRN (11:33)
[2018-07-31] MEDS: CALCIUM ACETATE 667 MG CAPSULE PO SCH ×3 (13:52→16:45)
[2018-07-31] MEDS: PHENYTOIN ER 100 MG CAPSULE PO SCH ×2 (13:52→21:09)
[2018-07-31] MEDS: SODIUM CHLORIDE 1 GM TABLET PO SCH ×2 (13:52→21:09)
[2018-07-31] MEDS: cefTRIAXone 1,000 MG in SYRINGE 1 EACH IV SCH (18:00)
[2018-07-31 22:16] LABS: Hematocrit 28.5 VOL% (35.7-47.0)
[2018-07-31 22:20] LABS: Hemoglobin 9.1 GM/DL (12.0-16.0)
[2018-08-01 04:53] LABS: Basophils % 0.7 % (0.0-0.8); Eosinophils # 0.3 10*3/uL (0.0-0.87); Eosinophils % 6.4 % (0.00-10.9); Hematocrit 27.6 VOL% (35.7-47.0); Hemoglobin 8.8 GM/DL (12.0-16.0); Immature Granulocytes % 0.6 %; Immature Granulocytes Absolute 0.03 #; Lymphocytes # 0.8 10*3/uL (1.4-4.0); Lymphocytes % 15.3 % (21.3-54.2); Mean Corpuscular HGB Conc 31.9 GM/DL (32-36); Mean Corpuscular Hemoglobin 27 PG (27-34); Mean Platelet Volume 11.1 FL (9.6-12.0); Monocytes # 0.8 10*3/uL (0.11-0.8); Monocytes % 15.1 % (1.7-12.7); Neutrophils # 3.3 10*3/uL (1.4-7.4); Neutrophils % 61.9 % (38.7-73.9); Platelet Count 112 T/CUMM (130-400); Red Blood Count 3.21 MC/CUMM (3.8-5.5); Red Cell Distribution Width 16.5 % (9.3-17.3); White Blood Count 5.4 T/CUMM (4-12)
[2018-08-01 05:16] LABS: Albumin 2.3 G/DL (3.4-5.0); Bilirubin,Total 1.1 MG/DL (0.2-1.0); Calcium 7.1 MG/DL (8.5-10.1); Osmolality,Calculated 271.4 MOS/KG (273-304); Total Protein 6.4 G/DL (6.4-8.3)
[2018-08-01] MEDS: PHENYTOIN ER 100 MG CAPSULE PO SCH (09:25)
[2018-08-01] MEDS: SODIUM CHLORIDE 1 GM TABLET PO SCH (09:25)
[2018-08-01] MEDS: CALCIUM ACETATE 667 MG CAPSULE PO SCH (09:26)
[2018-08-01] MEDS: IRON SUCROSE 100 MG/5 ML VIAL IV SCH (12:00)
[2018-08-01 13:49] VITALS: BP 148/73
== END 2018-08-01 11:50 | disposition home or self-care (01) | DRG 660 ==
LOC: N.ED 11:34 → SUATTDRO 14:53 → N.EDINP 14:53 → N.5E 15:39 → N.2W 15:39 → N.5E 16:59
PROVIDERS: ADMIT Internal Medicine; ATTEND Internal Medicine

== ENCOUNTER 2019-05-15 09:00 | Inpatient (IN) ==
[2019-05-15] MEDS ORDERED: ASPIRIN 325 MG TABLET PO STA (09:30)
[2019-05-15] MEDS ORDERED: ACETAMINOPHEN 500 MG TABLET PO STA (09:31)
[2019-05-15 10:23] LABS: Basophils % 0.3 % (0.0-0.8); Eosinophils # 0.1 10*3/uL (0.0-0.87); Eosinophils % 1.2 % (0.00-10.9); Hematocrit 34.5 VOL% (35.7-47.0); Hemoglobin 10.6 GM/DL (12.0-16.0); Immature Granulocytes % 0.4 %; Immature Granulocytes Absolute 0.03 #; Lymphocytes # 0.4 10*3/uL (1.4-4.0); Lymphocytes % 5.6 % (21.3-54.2); Mean Corpuscular HGB Conc 30.7 GM/DL (32-36); Mean Corpuscular Volume 92.2 FL (87-102); Mean Platelet Volume 11.6 FL (9.6-12.0); Monocytes % 2.7 % (1.7-12.7); Neutrophils % 89.8 % (38.7-73.9); Red Blood Count 3.74 MC/CUMM (3.8-5.5); Red Cell Distribution Width 14.4 % (9.3-17.3); White Blood Count 7.3 T/CUMM (4-12)
[2019-05-15 10:30] LABS: Partial Thromboplastin Time 31.3 SECS (0-40)
[2019-05-15 10:35] LABS: Platelet Count 72 T/CUMM (130-400)
[2019-05-15 10:40] LABS: Albumin 3.4 G/DL (3.4-5.0); Bilirubin,Total 0.8 MG/DL (0.2-1.0); Calcium 8.2 MG/DL (8.5-10.1); Total Protein 7.7 G/DL (6.4-8.3)
[2019-05-15 10:42] LABS: Hypochromasia 1+; Ovalocytes Slight; Platelet Estimate Decreased
[2019-05-15 10:43] LABS: Microcytosis Slight
[2019-05-15 11:23] LABS: Amorphous Crystals,Urine Occasional /HPF (Few); Apearance,Urine CLEAR (Clear); Bilirubin,Urine Negative (Negative); Blood, Urine Negative (Negative); Glucose,Urine (UA) Negative (Negative); Ketones,Urine Negative (Negative); Mucus,Urine Occasional /LPF (Occasional); Nitrite,Urine Negative (Negative); Protein,Urine 100 MG/DL; RBC,Urine 2 /HPF (0-4); Squamous Epithelial Cell,Urine Occasional /HPF (0-10); Urine Color Yellow (Yellow); Urine Specific Gravity 1.011 (1.001-1.035); Urine Urobilinogen < 2.0 EU/DL (0.2-1.0); WBC,Urine 1 /HPF (0-6)
[2019-05-15 11:58] LABS: Barbiturates Screen,Urine Negative (Negative); Benzodiazepines Screen,Urine Negative (Negative); Cannabinoid Screen,Urine Negative (Negative); Opiate Screen,Urine Negative (Negative); Phencyclidine Screen,Urine Negative (Negative)
[2019-05-15] MEDS ORDERED: ONDANSETRON 4 MG/2 ML VIAL IV PRN (12:10)
[2019-05-15] MEDS ORDERED: DEXTROSE 50% 25 GM/50 ML VIAL IV PRN (12:10)
[2019-05-15] MEDS ORDERED: LACTULOSE 20 GM/30 ML UDCUP PO PRN (12:10)
[2019-05-15] MEDS ORDERED: GLUCAGON 1 MG VIAL IM PRN (12:10)
[2019-05-15] MEDS ORDERED: cefTRIAXone 1,000 MG in SYRINGE 1 EACH IV SCH (12:30)
[2019-05-15] MEDS: INSULIN LISPRO 100 UNIT/ML SUBCUT SCH ×2 (15:36→20:55)
[2019-05-15] MEDS: PANTOPRAZOLE 40 MG TABLET PO SCH (18:03)
[2019-05-15] MEDS: GABAPENTIN 100 MG CAPSULE PO SCH ×2 (18:03→21:01)
[2019-05-15] MEDS ORDERED: ENOXAPARIN 30 MG/0.3 ML SYRINGE SUBCUT SCH (21:00)
[2019-05-15] MEDS: ACETAMINOPHEN 325 MG TABLET PO PRN (21:00)
[2019-05-16] MEDS: ALUMINUM/MAGNES/SIMETH MAX STR 30 ML UDCUP PO PRN ×2 (01:26→08:40)
[2019-05-16] MEDS: ACETAMINOPHEN 325 MG TABLET PO PRN ×3 (01:26→17:02)
[2019-05-16 05:09] LABS: Basophils % 0.3 % (0.0-0.8); Eosinophils # 0.2 10*3/uL (0.0-0.87); Hematocrit 31.4 VOL% (35.7-47.0); Hemoglobin 9.8 GM/DL (12.0-16.0); Immature Granulocytes % 0.3 %; Immature Granulocytes Absolute 0.02 #; Lymphocytes # 0.6 10*3/uL (1.4-4.0); Lymphocytes % 7.8 % (21.3-54.2); Mean Corpuscular HGB Conc 31.2 GM/DL (32-36); Mean Corpuscular Volume 91.3 FL (87-102); Mean Platelet Volume 12.4 FL (9.6-12.0); Monocytes % 5.5 % (1.7-12.7); Neutrophils % 83.1 % (38.7-73.9); Platelet Count 79 T/CUMM (130-400); Red Blood Count 3.44 MC/CUMM (3.8-5.5); Red Cell Distribution Width 14.3 % (9.3-17.3)
[2019-05-16 05:36] LABS: Calcium 7.7 MG/DL (8.5-10.1); Osmolality,Calculated 283.7 MOS/KG (273-304)
[2019-05-16 05:45] LABS: Anisocytosis 1+; Platelet Estimate Decreased
[2019-05-16] MEDS: PANTOPRAZOLE 40 MG TABLET PO SCH (08:24)
[2019-05-16] MEDS: ASPIRIN EC 81 MG TABLET PO SCH (08:24)
[2019-05-16] MEDS: GABAPENTIN 100 MG CAPSULE PO SCH (08:24)
[2019-05-16] MEDS: BISACODYL 5 MG TABLET PO PRN (08:39)
[2019-05-16] MEDS ORDERED: ceFAZolin 2,000 MG in PREMIX 1 EACH IV ONE (10:30)
[2019-05-16] MEDS ORDERED: MORPHINE 4 MG/1 ML VIAL ONE (14:16)
[2019-05-16] MEDS ORDERED: ALUM/MAG/SIMETH/LIDO VISC 1:1 30 ML BOTTLE PO ONE (14:19)
[2019-05-16] MEDS ORDERED: MORPHINE 4 MG/1 ML VIAL IV ONE (14:21)
[2019-05-16] MEDS: amLODIPine 10 MG TABLET PO SCH (14:26)
[2019-05-16] MEDS: traMADol 50 MG TABLET PO SCH ×2 (15:21→21:39)
[2019-05-16] MEDS: LIDOCAINE 5% PATCH TRANSDERM SCH (15:21)
[2019-05-16] MEDS: GABAPENTIN 300 MG CAPSULE PO SCH ×2 (15:21→21:40)
[2019-05-16 16:20] LABS: Troponin I 0.053 NG/ML (0.00-0.045)
[2019-05-16] MEDS ORDERED: GABAPENTIN 300 MG CAPSULE PO SCH (21:00)
[2019-05-17 05:19] LABS: Basophils % 0.5 % (0.0-0.8); Eosinophils # 0.2 10*3/uL (0.0-0.87); Eosinophils % 3.3 % (0.00-10.9); Hemoglobin 9.7 GM/DL (12.0-16.0); Immature Granulocytes % 0.2 %; Immature Granulocytes Absolute 0.01 #; Lymphocytes # 1.7 10*3/uL (1.4-4.0); Lymphocytes % 26.2 % (21.3-54.2); Mean Corpuscular HGB Conc 31.3 GM/DL (32-36); Mean Corpuscular Volume 91.7 FL (87-102); Mean Platelet Volume 12.5 FL (9.6-12.0); Monocytes % 9.3 % (1.7-12.7); Neutrophils % 60.5 % (38.7-73.9); Platelet Count 93 T/CUMM (130-400); Red Blood Count 3.38 MC/CUMM (3.8-5.5); Red Cell Distribution Width 14.1 % (9.3-17.3); White Blood Count 6.5 T/CUMM (4-12)
[2019-05-17 05:45] LABS: Eosinophils 2 % (0-10); Lymphocytes 26 % (20-55); Segmented Neutrophils 64 % (50-85); Total Cells Counted 100
[2019-05-17 05:46] LABS: Hypochromasia 1+; Ovalocytes Slight; Platelet Estimate Decreased
[2019-05-17 06:04] LABS: Calcium 7.7 MG/DL (8.5-10.1)
[2019-05-17] MEDS ORDERED: MORPHINE 4 MG/1 ML VIAL IV ONE (11:34)
[2019-05-17] MEDS: LIDOCAINE 5% PATCH TRANSDERM SCH (11:43)
[2019-05-17] MEDS: GABAPENTIN 300 MG CAPSULE PO SCH ×3 (13:08→21:07)
[2019-05-17] MEDS ORDERED: ceFAZolin 2,000 MG in PREMIX 1 EACH IV ONE ×2 (17:00→18:14)
[2019-05-17] MEDS: traMADol 50 MG TABLET PO SCH ×2 (17:35→17:46)
[2019-05-17] MEDS: PANTOPRAZOLE 40 MG TABLET PO SCH (17:46)
[2019-05-17] MEDS: amLODIPine 10 MG TABLET PO SCH (17:46)
[2019-05-17] MEDS: ASPIRIN EC 81 MG TABLET PO SCH (17:46)
[2019-05-17] MEDS: ALUMINUM/MAGNES/SIMETH MAX STR 30 ML UDCUP PO PRN (18:16)
[2019-05-18] MEDS: traMADol 50 MG TABLET PO SCH ×3 (00:45→21:44)
[2019-05-18] MEDS ORDERED: PROPOFOL 200 MG/20 ML VIAL IV ONE (07:27)
[2019-05-18] MEDS ORDERED: PHENYLEPHRINE 1 MG/10 ML SYRINGE IV ONE (07:27)
[2019-05-18] MEDS ORDERED: ETOMIDATE 40 MG/20 ML VIAL IV ONE (07:27)
[2019-05-18 09:52] LABS: Basophils % 0.7 % (0.0-0.8); Eosinophils # 0.4 10*3/uL (0.0-0.87); Eosinophils % 8.4 % (0.00-10.9); Hematocrit 32.1 VOL% (35.7-47.0); Hemoglobin 10.1 GM/DL (12.0-16.0); Immature Granulocytes % 0.2 %; Immature Granulocytes Absolute 0.01 #; Lymphocytes # 1.1 10*3/uL (1.4-4.0); Lymphocytes % 25.3 % (21.3-54.2); Mean Corpuscular HGB Conc 31.5 GM/DL (32-36); Mean Corpuscular Volume 90.4 FL (87-102); Mean Platelet Volume 11.7 FL (9.6-12.0); Monocytes % 10.7 % (1.7-12.7); Neutrophils % 54.7 % (38.7-73.9); Platelet Count 121 T/CUMM (130-400); Red Blood Count 3.55 MC/CUMM (3.8-5.5); Red Cell Distribution Width 14.1 % (9.3-17.3); White Blood Count 4.2 T/CUMM (4-12)
[2019-05-18] MEDS: PANTOPRAZOLE 40 MG TABLET PO SCH (10:05)
[2019-05-18] MEDS: ASPIRIN EC 81 MG TABLET PO SCH (10:05)
[2019-05-18] MEDS: amLODIPine 10 MG TABLET PO SCH (10:05)
[2019-05-18] MEDS: GABAPENTIN 300 MG CAPSULE PO SCH ×3 (10:05→21:43)
[2019-05-18] MEDS: LIDOCAINE 5% PATCH TRANSDERM SCH (10:06)
[2019-05-18 10:21] LABS: Calcium 7.7 MG/DL (8.5-10.1); Osmolality,Calculated 279.1 MOS/KG (273-304)
[2019-05-18] MEDS: ALUMINUM/MAGNES/SIMETH MAX STR 30 ML UDCUP PO PRN (23:47)
[2019-05-19] MEDS: GABAPENTIN 300 MG CAPSULE PO SCH (08:10)
[2019-05-19] MEDS: traMADol 50 MG TABLET PO SCH (08:10)
[2019-05-19] MEDS: PANTOPRAZOLE 40 MG TABLET PO SCH (08:10)
[2019-05-19] MEDS: amLODIPine 10 MG TABLET PO SCH (13:05)
[2019-05-19] MEDS: ASPIRIN EC 81 MG TABLET PO SCH (13:05)
[2019-05-19] MEDS: BISACODYL 5 MG TABLET PO PRN (13:05)
[2019-05-19] MEDS: LIDOCAINE 5% PATCH TRANSDERM SCH (13:08)
[2019-05-19 13:16] VITALS: BP 144/86
[2019-05-19] MEDS ORDERED: ceFAZolin 3,000 MG in SYRINGE 1 EACH IV SCH (17:00)
[2019-05-22] MEDS ORDERED: ceFAZolin 2,000 MG in PREMIX 1 EACH IV SCH (17:00)
== END 2019-05-19 16:12 | disposition home or self-care (01) | DRG 871 ==
LOC: N.EDINP 09:00 → N.ED 09:00 → N.5E 12:47 → SUATTDRO 05-16 12:59
PROVIDERS: ADMIT Internal Medicine; ATTEND Internal Medicine

== ENCOUNTER 2019-06-09 11:48 | Observation (INO) ==
[2019-06-09] MEDS ORDERED: ORPHENADRINE 60 MG/2 ML VIAL IV STA (12:13)
[2019-06-09] MEDS ORDERED: METOPROLOL TARTRATE 5 MG/5 ML VIAL IV STA (12:13)
[2019-06-09] MEDS ORDERED: ASPIRIN 325 MG TABLET PO STA (12:13)
[2019-06-09] MEDS ORDERED: KETOROLAC 30 MG/1 ML VIAL IV STA (12:13)
[2019-06-09 13:07] LABS: Basophils % 1.1 % (0.0-0.8); Eosinophils # 0.5 10*3/uL (0.0-0.87); Eosinophils % 12.8 % (0.00-10.9); Hematocrit 23.7 VOL% (35.7-47.0); Hemoglobin 7.4 GM/DL (12.0-16.0); Immature Granulocytes % 0.3 %; Immature Granulocytes Absolute 0.01 #; Lymphocytes # 0.9 10*3/uL (1.4-4.0); Lymphocytes % 24.5 % (21.3-54.2); Mean Corpuscular HGB Conc 31.2 GM/DL (32-36); Mean Corpuscular Volume 92.9 FL (87-102); Mean Platelet Volume 11.4 FL (9.6-12.0); Monocytes % 8.8 % (1.7-12.7); Neutrophils % 52.5 % (38.7-73.9); Platelet Count 102 T/CUMM (130-400); Red Blood Count 2.55 MC/CUMM (3.8-5.5); Red Cell Distribution Width 15.2 % (9.3-17.3); White Blood Count 3.8 T/CUMM (4-12)
[2019-06-09 13:31] LABS: Alanine Aminotransferase < 6 U/L (13-56); Alkaline Phosphatase 136 U/L (45-117); Aspartate Amino Transferase 41 U/L (0-37); Blood Urea Nitrogen 17 MG/DL (7-18); Calcium 9.1 MG/DL (8.5-10.1); Glucose 89 MG/DL (74-106); Osmolality,Calculated 286.8 MOS/KG (273-304); Total Protein 7.7 G/DL (6.4-8.3); Troponin I < 0.015 NG/ML (0.00-0.045)
[2019-06-09 13:36] LABS: PT Patient Result 11.1 SECS (9.6-12.2); Partial Thromboplastin Time 30.1 SECS (20.8-36.0)
[2019-06-09 14:18] LABS: Eosinophils 12 % (0-10); Lymphocytes 23 % (20-55); Nucleated Red Blood Cells 1 (0-5); Segmented Neutrophils 63 % (50-85); Total Cells Counted 100
[2019-06-09 14:19] LABS: Anisocytosis 1+; Ovalocytes Few
[2019-06-09 14:20] LABS: Hypochromasia 2+
[2019-06-09 14:21] LABS: Platelet Estimate Decreased
[2019-06-09] MEDS ORDERED: ACETAMINOPHEN 325 MG TABLET PO PRN (14:35)
[2019-06-09] MEDS ORDERED: LACTULOSE 20 GM/30 ML UDCUP PO PRN (14:35)
[2019-06-09] MEDS ORDERED: ONDANSETRON 4 MG/2 ML VIAL IV PRN (14:35)
[2019-06-09] MEDS ORDERED: hydrALAZINE 20 MG/1 ML VIAL IV PRN (14:51)
[2019-06-09] MEDS ORDERED: LIDOCAINE 5% PATCH TRANSDERM PRN (15:01)
[2019-06-09] MEDS ORDERED: ceFAZolin 1,000 MG VIAL IV SCH (15:30)
[2019-06-09 15:33] LABS: Risk Ratio 2.02; VLDL CHOLESTEROL 11.6 MG/DL
[2019-06-09] MEDS ORDERED: NITROGLYCERIN SL 0.4 MG TABLET SL PRN (16:26)
[2019-06-09] MEDS ORDERED: LABETALOL 100 MG/20 ML VIAL IV ONE (16:43)
[2019-06-09] MEDS ORDERED: hydrALAZINE 20 MG/1 ML VIAL IV ONE (16:43)
[2019-06-09] MEDS: MORPHINE 4 MG/1 ML VIAL IV PRN (17:13)
[2019-06-09 17:16] LABS: Eosinophils # 0.5 10*3/uL (0.0-0.87); Eosinophils % 13.3 % (0.00-10.9); Hematocrit 23.7 VOL% (35.7-47.0); Hemoglobin 7.2 GM/DL (12.0-16.0); Immature Granulocytes % 0.3 %; Immature Granulocytes Absolute 0.01 #; Lymphocytes # 1.2 10*3/uL (1.4-4.0); Lymphocytes % 29.1 % (21.3-54.2); Mean Corpuscular HGB Conc 30.4 GM/DL (32-36); Mean Corpuscular Volume 93.3 FL (87-102); Mean Platelet Volume 11.6 FL (9.6-12.0); Monocytes % 8.5 % (1.7-12.7); Neutrophils % 47.8 % (38.7-73.9); Platelet Count 100 T/CUMM (130-400); Red Blood Count 2.54 MC/CUMM (3.8-5.5); Red Cell Distribution Width 15.2 % (9.3-17.3)
[2019-06-09 17:34] LABS: Alanine Aminotransferase < 6 U/L (13-56); Albumin 2.9 G/DL (3.4-5.0); Alkaline Phosphatase 130 U/L (45-117); Aspartate Amino Transferase 43 U/L (0-37); Blood Urea Nitrogen 21 MG/DL (7-18); Calcium 8.6 MG/DL (8.5-10.1); Glucose 81 MG/DL (74-106)
[2019-06-09 18:09] LABS: Eosinophils 14 % (0-10); Lymphocytes 26 % (20-55); Segmented Neutrophils 55 % (50-85); Total Cells Counted 100
[2019-06-09] MEDS: CALCIUM ACETATE 667 MG CAPSULE PO SCH (18:09)
[2019-06-09] MEDS: HEPARIN 5,000 UNIT/1 ML VIAL SUBCUT SCH (18:09)
[2019-06-09 18:10] LABS: Platelet Estimate Adequate
[2019-06-09 18:12] LABS: Hypochromasia 3+; Macrocytosis Slight
[2019-06-09 18:13] LABS: Ovalocytes Few; Polychromasia Slight
[2019-06-09] MEDS ORDERED: PHENYTOIN ER 100 MG CAPSULE PO SCH (21:00)
[2019-06-09] MEDS: GABAPENTIN 300 MG CAPSULE PO SCH (21:33)
[2019-06-10] MEDS: HEPARIN 5,000 UNIT/1 ML VIAL SUBCUT SCH ×2 (01:59→06:21)
[2019-06-10 05:20] LABS: Basophils % 0.9 % (0.0-0.8); Eosinophils # 0.7 10*3/uL (0.0-0.87); Eosinophils % 20.6 % (0.00-10.9); Hematocrit 24.3 VOL% (35.7-47.0); Hemoglobin 7.2 GM/DL (12.0-16.0); Lymphocytes # 1.1 10*3/uL (1.4-4.0); Lymphocytes % 31.2 % (21.3-54.2); Mean Corpuscular HGB Conc 29.6 GM/DL (32-36); Mean Corpuscular Volume 93.5 FL (87-102); Mean Platelet Volume 12.3 FL (9.6-12.0); Monocytes % 8.8 % (1.7-12.7); Neutrophils % 38.5 % (38.7-73.9); Platelet Count 108 T/CUMM (130-400); Red Cell Distribution Width 15.2 % (9.3-17.3); White Blood Count 3.4 T/CUMM (4-12)
[2019-06-10] MEDS: MORPHINE 4 MG/1 ML VIAL IV PRN (05:38)
[2019-06-10 05:40] LABS: Calcium 8.4 MG/DL (8.5-10.1); Osmolality,Calculated 290.8 MOS/KG (273-304)
[2019-06-10 05:50] LABS: Band Neutrophils 2 % (0-10); Eosinophils 17 % (0-10); Lymphocytes 28 % (20-55); Nucleated Red Blood Cells 1 (0-5); Platelet Estimate Decreased; Segmented Neutrophils 45 % (50-85); Total Cells Counted 100
[2019-06-10] MEDS: CALCIUM ACETATE 667 MG CAPSULE PO SCH ×2 (08:51→11:54)
[2019-06-10] MEDS: GABAPENTIN 300 MG CAPSULE PO SCH (08:52)
[2019-06-10] MEDS ORDERED: PANTOPRAZOLE 40 MG TABLET PO SCH (09:00)
[2019-06-10] MEDS ORDERED: amLODIPine 10 MG TABLET PO SCH (09:00)
[2019-06-10 12:21] VITALS: BP 145/90
[2019-06-12] MEDS ORDERED: ceFAZolin 2,000 MG in PREMIX 1 EACH IV SCH (09:00)
[2019-06-12] MEDS ORDERED: ceFAZolin 2,000 MG/50 ML DUPLEX IV SCH (15:01)
[2019-06-16] MEDS ORDERED: ceFAZolin 3,000 MG in SYRINGE 1 EACH IV SCH (09:00)
== END 2019-06-10 12:50 | disposition home or self-care (01) ==
LOC: N.EDINP 11:48 → N.ED 11:48 → N.2E 16:08
PROVIDERS: ADMIT Internal Medicine; ATTEND Internal Medicine

== ENCOUNTER 2019-12-06 16:28 | Observation (INO) ==
[2019-12-06 17:47] LABS: Albumin 3.9 G/DL (3.4-5.0); Bilirubin,Total 0.7 MG/DL (0.2-1.0); Calcium 9.3 MG/DL (8.5-10.1); Osmolality,Calculated 269.2 MOS/KG (273-304); Total Protein 9.3 G/DL (6.4-8.3)
[2019-12-06 17:50] LABS: Basophils % 0.7 % (0.0-0.8); Eosinophils # 0.6 10*3/uL (0.0-0.87); Eosinophils % 10.6 % (0.00-10.9); Hematocrit 40.4 VOL% (35.7-47.0); Hemoglobin 12.6 GM/DL (12.0-16.0); Immature Granulocytes % 0.2 %; Immature Granulocytes Absolute 0.01 #; Lymphocytes # 1.4 10*3/uL (1.4-4.0); Lymphocytes % 24.6 % (21.3-54.2); Mean Corpuscular HGB Conc 31.2 GM/DL (32-36); Mean Corpuscular Volume 93.3 FL (87-102); Mean Platelet Volume 11.3 FL (9.6-12.0); Monocytes % 9.8 % (1.7-12.7); NRBC # 0.02 10*3/uL; Neutrophils % 54.1 % (38.7-73.9); Platelet Count 153 T/CUMM (130-400); Red Blood Count 4.33 MC/CUMM (3.8-5.5); Red Cell Distribution Width 16.6 % (9.3-17.3); White Blood Count 5.7 T/CUMM (4-12)
[2019-12-06] MEDS ORDERED: NITROGLYCERIN 2% OINT 1 INCH/GM PACK TOP STA (18:53)
[2019-12-06] MEDS ORDERED: MORPHINE 4 MG/1 ML VIAL IV STA (18:53)
[2019-12-06] MEDS ORDERED: ALUM/MAG/SIMETH/LIDO VISC 1:1 30 ML BOTTLE PO STA (18:53)
[2019-12-06] MEDS ORDERED: ONDANSETRON 4 MG/2 ML VIAL IV STA (18:53)
[2019-12-06] MEDS ORDERED: ASPIRIN 325 MG TABLET PO STA (18:53)
[2019-12-06] MEDS ORDERED: DOCUSATE SODIUM 100 MG CAPSULE PO PRN (21:15)
[2019-12-06] MEDS ORDERED: MORPHINE 4 MG/1 ML VIAL IV PRN (21:15)
[2019-12-06] MEDS ORDERED: ONDANSETRON 4 MG/2 ML VIAL IV PRN (21:15)
[2019-12-06] MEDS ORDERED: ACETAMINOPHEN 325 MG TABLET PO PRN (21:15)
[2019-12-06] MEDS ORDERED: hydrALAZINE 20 MG/1 ML VIAL IV PRN (21:15)
[2019-12-06] MEDS: PHENYTOIN ER 100 MG CAPSULE PO SCH (22:08)
[2019-12-06] MEDS: IMIPRAMINE 25 MG TABLET PO SCH (22:08)
[2019-12-07] MEDS ORDERED: METHOCARBAMOL 500 MG TABLET PO PRN (00:37)
[2019-12-07 05:52] LABS: Calcium 8.2 MG/DL (8.5-10.1); Osmolality,Calculated 270.5 MOS/KG (273-304)
[2019-12-07 06:06] LABS: Risk Ratio 1.88; VLDL CHOLESTEROL 11.6 MG/DL
[2019-12-07 06:42] LABS: Basophils % 0.8 % (0.0-0.8); Eosinophils # 0.7 10*3/uL (0.0-0.87); Eosinophils % 13.2 % (0.00-10.9); Hematocrit 34.6 VOL% (35.7-47.0); Hemoglobin 10.5 GM/DL (12.0-16.0); Lymphocytes # 1.2 10*3/uL (1.4-4.0); Mean Corpuscular HGB Conc 30.3 GM/DL (32-36); Mean Corpuscular Volume 94.5 FL (87-102); Mean Platelet Volume 11.9 FL (9.6-12.0); Monocytes % 12.2 % (1.7-12.7); Neutrophils % 49.8 % (38.7-73.9); Platelet Count 124 T/CUMM (130-400); Red Blood Count 3.66 MC/CUMM (3.8-5.5); Red Cell Distribution Width 16.8 % (9.3-17.3)
[2019-12-07 07:11] LABS: Eosinophils 17 % (0-10); Hypochromasia 1+; Lymphocytes 23 % (20-55); Platelet Estimate Decreased; Segmented Neutrophils 52 % (50-85); Total Cells Counted 100
[2019-12-07] MEDS ORDERED: MAGNESIUM SULF RIDER 2 GM in PREMIX 1 EACH IV PRN (08:47)
[2019-12-07] MEDS ORDERED: POTASSIUM CHLORIDE RIDER 10 MEQ in PREMIX 1 EACH IV PRN (08:47)
[2019-12-07] MEDS ORDERED: diphenhydrAMINE CAP 25 MG CAPSULE PO ONE (08:47)
[2019-12-07] MEDS ORDERED: DIAZEPAM 5 MG TABLET PO ONE (08:47)
[2019-12-07] MEDS: PANTOPRAZOLE 40 MG TABLET PO SCH (09:12)
[2019-12-07] MEDS: ASPIRIN CHEW 81 MG TABLET PO SCH (09:12)
[2019-12-07] MEDS: SODIUM CHLORIDE 0.9% 1,000 ML IV SCH (09:13)
[2019-12-07] MEDS: CALCIUM ACETATE 667 MG CAPSULE PO SCH ×3 (09:19→17:02)
[2019-12-07] MEDS ORDERED: HEPARIN/NACL 0.9% 2 UNITS/ML 1,000 ML IV ONE (14:23)
[2019-12-07] MEDS ORDERED: LIDOCAINE 1% 20 ML VIAL ONE (14:23)
[2019-12-07] MEDS ORDERED: HYDROmorphone 2 MG/1 ML VIAL ONE (15:20)
[2019-12-07] MEDS ORDERED: MIDAZOLAM 2 MG/2 ML VIAL ONE (15:21)
[2019-12-07] MEDS ORDERED: ZALEPLON 5 MG CAPSULE PO PRN (16:02)
[2019-12-07] MEDS: IMIPRAMINE 25 MG TABLET PO SCH (20:45)
[2019-12-07] MEDS: PHENYTOIN ER 100 MG CAPSULE PO SCH (20:45)
[2019-12-07] MEDS: NITROGLYCERIN SL 0.4 MG TABLET SL PRN (20:47)
[2019-12-07] MEDS ORDERED: ATORVASTATIN 40 MG TABLET PO SCH (21:00)
[2019-12-08] MEDS: NITROGLYCERIN SL 0.4 MG TABLET SL PRN (03:50)
[2019-12-08 04:36] LABS: Basophils % 0.8 % (0.0-0.8); Eosinophils # 0.7 10*3/uL (0.0-0.87); Eosinophils % 13.6 % (0.00-10.9); Hematocrit 31.2 VOL% (35.7-47.0); Hemoglobin 9.4 GM/DL (12.0-16.0); Immature Granulocytes % 0.2 %; Immature Granulocytes Absolute 0.01 #; Lymphocytes # 1.3 10*3/uL (1.4-4.0); Lymphocytes % 26.5 % (21.3-54.2); Mean Corpuscular HGB Conc 30.1 GM/DL (32-36); Mean Corpuscular Volume 94.8 FL (87-102); Mean Platelet Volume 11.3 FL (9.6-12.0); Monocytes % 10.5 % (1.7-12.7); Neutrophils % 48.4 % (38.7-73.9); Platelet Count 114 T/CUMM (130-400); Red Blood Count 3.29 MC/CUMM (3.8-5.5); Red Cell Distribution Width 16.7 % (9.3-17.3); White Blood Count 4.9 T/CUMM (4-12)
[2019-12-08 05:00] LABS: Calcium 7.5 MG/DL (8.5-10.1); Osmolality,Calculated 277.4 MOS/KG (273-304)
[2019-12-08 05:22] LABS: Band Neutrophils 3 % (0-10); Eosinophils 13 % (0-10); Lymphocytes 27 % (20-55); Segmented Neutrophils 55 % (50-85); Total Cells Counted 100
[2019-12-08 05:23] LABS: Anisocytosis 1+; Ovalocytes 1+; Platelet Estimate Adequate
[2019-12-08] MEDS: CALCIUM ACETATE 667 MG CAPSULE PO SCH ×2 (08:30→12:10)
[2019-12-08] MEDS: ASPIRIN CHEW 81 MG TABLET PO SCH (08:30)
[2019-12-08] MEDS: PANTOPRAZOLE 40 MG TABLET PO SCH (08:30)
[2019-12-08] MEDS: SODIUM CHLORIDE 0.9% 1,000 ML IV SCH (11:27)
[2019-12-08 12:06] VITALS: BP 156/87
== END 2019-12-08 12:30 | disposition home or self-care (01) ==
LOC: N.EDINP 16:28 → N.ED 16:28 → N.2W 19:52
PROVIDERS: ADMIT Internal Medicine; ATTEND Internal Medicine
PROC: CLCCHCL (ICD-10-PCS; 2019-12-07 14:45)

== ENCOUNTER 2021-03-14 14:20 | Inpatient (IN) ==
[2021-03-14] MEDS ORDERED: SODIUM CHLORIDE 0.9% 500 ML IV STA (14:48)
[2021-03-14 15:34] LABS: Calcium 8.1 MG/DL (8.5-10.1); Osmolality,Calculated 277.8 MOS/KG (273-304); Potassium 3.4 MMOL/L (3.5-5.1)
[2021-03-14] MEDS ORDERED: SODIUM CHLORIDE 0.9% 1,000 ML IV PRN ×2 (15:51→21:12)
[2021-03-14 15:52] LABS: Basophils % 0.4 % (0.0-0.8); Eosinophils % 0.6 % (0.00-10.9); Hematocrit 24.5 VOL% (35.7-47.0); Hemoglobin 7.5 GM/DL (12.0-16.0); Immature Granulocytes % 0.3 %; Immature Granulocytes Absolute 0.02 #; Lymphocytes # 1.3 10*3/uL (1.4-4.0); Lymphocytes % 17.6 % (21.3-54.2); Mean Corpuscular HGB Conc 30.6 GM/DL (32-36); Mean Corpuscular Volume 96.1 FL (87-102); Mean Platelet Volume 12.6 FL (9.6-12.0); Monocytes % 2.5 % (1.7-12.7); Neutrophils % 78.6 % (38.7-73.9); Platelet Count 76 T/CUMM (130-400); Red Blood Count 2.55 MC/CUMM (3.8-5.5); Red Cell Distribution Width 14.4 % (9.3-17.3); White Blood Count 7.2 T/CUMM (4-12)
[2021-03-14 19:20] LABS: Basophils % 0.3 % (0.0-0.8); Eosinophils % 0.4 % (0.00-10.9); Hematocrit 21.9 VOL% (35.7-47.0); Hemoglobin 6.7 GM/DL (12.0-16.0); Immature Granulocytes % 0.3 %; Immature Granulocytes Absolute 0.02 #; Lymphocytes # 0.9 10*3/uL (1.4-4.0); Mean Corpuscular HGB Conc 30.6 GM/DL (32-36); Mean Corpuscular Volume 95.2 FL (87-102); Mean Platelet Volume 12.5 FL (9.6-12.0); Monocytes % 6.2 % (1.7-12.7); Neutrophils % 80.8 % (38.7-73.9); Platelet Count 80 T/CUMM (130-400); Red Cell Distribution Width 14.4 % (9.3-17.3); White Blood Count 7.7 T/CUMM (4-12)
[2021-03-14 20:01] LABS: Lymphocytes 20 % (20-55); Segmented Neutrophils 75 % (50-85); Total Cells Counted 100
[2021-03-14 20:02] LABS: Hypochromasia 1+
[2021-03-14 20:03] LABS: Platelet Estimate Decreased
[2021-03-14] MEDS ORDERED: GLUCAGON 1 MG VIAL IM PRN ×2 (21:04)
[2021-03-14] MEDS ORDERED: DEXTROSE 50% 25 GM/50 ML VIAL IV PRN ×2 (21:04)
[2021-03-15] MEDS: ONDANSETRON 4 MG/2 ML VIAL IV PRN ×3 (00:16→22:35)
[2021-03-15] MEDS: ACETAMINOPHEN 325 MG TABLET PO PRN ×2 (04:55→13:15)
[2021-03-15] MEDS ORDERED: SODIUM CHLORIDE 0.9% 1,000 ML IV PRN (07:27)
[2021-03-15] MEDS ORDERED: INSULIN REGULAR 100 UNIT/ML SUBCUT SCH (07:30)
[2021-03-15] MEDS ORDERED: VANCOMYCIN INJ 1,750 MG in SODIUM CHLORIDE 0.9% 500 ML IV ONE (07:52)
[2021-03-15] MEDS ORDERED: VANCOMYCIN INJ 500 MG in SODIUM CHLORIDE 0.9% 250 ML IV PRN (08:17)
[2021-03-15 09:27] LABS: Basophils % 0.4 % (0.0-0.8); Eosinophils % 0.2 % (0.00-10.9); Hematocrit 27.8 VOL% (35.7-47.0); Hemoglobin 9.1 GM/DL (12.0-16.0); Immature Granulocytes % 0.6 %; Immature Granulocytes Absolute 0.06 #; Lymphocytes # 1.1 10*3/uL (1.4-4.0); Mean Corpuscular HGB Conc 32.7 GM/DL (32-36); Mean Corpuscular Volume 93.9 FL (87-102); Mean Platelet Volume 12.6 FL (9.6-12.0); Monocytes % 4.1 % (1.7-12.7); NRBC # 0.02 10*3/uL; Neutrophils % 82.7 % (38.7-73.9); Platelet Count 91 T/CUMM (130-400); Red Blood Count 2.96 MC/CUMM (3.8-5.5); Red Cell Distribution Width 14.3 % (9.3-17.3); White Blood Count 9.5 T/CUMM (4-12)
[2021-03-15 09:42] LABS: Albumin 2.4 G/DL (3.4-5.0); Bilirubin,Total 0.6 MG/DL (0.2-1.0); Calcium 7.6 MG/DL (8.5-10.1); Osmolality,Calculated 284.5 MOS/KG (273-304); Potassium 4.5 MMOL/L (3.5-5.1); Total Protein 5.7 G/DL (6.4-8.2)
[2021-03-15 11:00] LABS: Anisocytosis 1+; Platelet Estimate Decreased; Polychromasia Slight; Tear Drop Cells Few
[2021-03-15 11:01] LABS: Macrocytosis Slight
[2021-03-15] MEDS ORDERED: SODIUM CHLORIDE 0.9% 1,000 ML IV SCH (14:30)
[2021-03-15] MEDS: PIPERACILLIN/TAZOBACTAM 3.375 MG in SODIUM CHLORIDE 0.9% 100 ML IV SCH (14:55)
[2021-03-15] MEDS ORDERED: METOPROLOL TARTRATE 5 MG/5 ML VIAL IV ONE (15:16)
[2021-03-15] MEDS: PANTOPRAZOLE 40 MG TABLET PO SCH (15:37)
[2021-03-15] MEDS: PHENYTOIN ER 100 MG CAPSULE PO SCH (23:13)
[2021-03-16] MEDS: PIPERACILLIN/TAZOBACTAM 3.375 MG in SODIUM CHLORIDE 0.9% 100 ML IV SCH (04:32)
[2021-03-16 05:23] LABS: Basophils # 0.1 10*3/uL (0.0-0.2); Basophils % 0.4 % (0.0-0.8); Eosinophils # 0.3 10*3/uL (0.0-0.87); Eosinophils % 2.2 % (0.00-10.9); Hematocrit 25.3 VOL% (35.7-47.0); Immature Granulocytes % 0.5 %; Immature Granulocytes Absolute 0.06 #; Lymphocytes # 1.6 10*3/uL (1.4-4.0); Lymphocytes % 11.9 % (21.3-54.2); Mean Corpuscular HGB Conc 30.8 GM/DL (32-36); Mean Corpuscular Volume 98.1 FL (87-102); Mean Platelet Volume 12.3 FL (9.6-12.0); Monocytes % 6.6 % (1.7-12.7); Neutrophils % 78.4 % (38.7-73.9); Red Blood Count 2.58 MC/CUMM (3.8-5.5); Red Cell Distribution Width 14.5 % (9.3-17.3); White Blood Count 13.2 T/CUMM (4-12)
[2021-03-16 05:26] LABS: Hemoglobin 7.8 GM/DL (12.0-16.0); Platelet Count 88 T/CUMM (130-400)
[2021-03-16 05:53] LABS: Bilirubin,Direct 0.25 MG/DL (0.0-0.20); Bilirubin,Indirect 0.4 MG/DL (0.0-1.0); Bilirubin,Total 0.6 MG/DL (0.2-1.0); Total Protein 5.6 G/DL (6.4-8.2)
[2021-03-16 05:54] LABS: Calcium 7.7 MG/DL (8.5-10.1); Osmolality,Calculated 277.2 MOS/KG (273-304)
[2021-03-16] MEDS: ONDANSETRON 4 MG/2 ML VIAL IV PRN ×3 (06:02→22:11)
[2021-03-16] MEDS: PANTOPRAZOLE 40 MG TABLET PO SCH (10:20)
[2021-03-16] MEDS ORDERED: NITROGLYCERIN SL 0.4 MG TABLET SL ONE (15:55)
[2021-03-16] MEDS: CALCIUM ACETATE 667 MG CAPSULE PO SCH (16:33)
[2021-03-16] MEDS: PHENYTOIN ER 100 MG CAPSULE PO SCH (20:40)
[2021-03-17] MEDS ORDERED: PANTOPRAZOLE 40 MG VIAL IV ONE (01:41)
[2021-03-17 04:36] LABS: Basophils % 0.3 % (0.0-0.8); Eosinophils % 10.8 % (0.00-10.9); Hematocrit 22.1 VOL% (35.7-47.0); Hemoglobin 7.2 GM/DL (12.0-16.0); Immature Granulocytes % 0.4 %; Immature Granulocytes Absolute 0.04 #; Lymphocytes # 1.2 10*3/uL (1.4-4.0); Lymphocytes % 12.4 % (21.3-54.2); Mean Corpuscular HGB Conc 32.6 GM/DL (32-36); Mean Corpuscular Volume 93.6 FL (87-102); Mean Platelet Volume 12.2 FL (9.6-12.0); Monocytes % 9.5 % (1.7-12.7); Neutrophils % 66.6 % (38.7-73.9); Platelet Count 79 T/CUMM (130-400); Red Blood Count 2.36 MC/CUMM (3.8-5.5); Red Cell Distribution Width 14.3 % (9.3-17.3); White Blood Count 9.3 T/CUMM (4-12)
[2021-03-17 04:58] LABS: Albumin 2.1 G/DL (3.4-5.0); Bilirubin,Total 1.5 MG/DL (0.2-1.0); Calcium 7.6 MG/DL (8.5-10.1); Osmolality,Calculated 288.7 MOS/KG (273-304); Potassium 4.4 MMOL/L (3.5-5.1); Total Protein 5.4 G/DL (6.4-8.2)
[2021-03-17 05:00] LABS: Hypochromasia Slight
[2021-03-17 05:01] LABS: Microcytosis Slight; Ovalocytes Slight; Platelet Estimate Decreased
[2021-03-17] MEDS: LEVOTHYROXINE 25 MCG TABLET PO SCH (05:27)
[2021-03-17] MEDS ORDERED: SODIUM CHLORIDE 0.9% 1,000 ML IV PRN (07:35)
[2021-03-17] MEDS: CALCIUM ACETATE 667 MG CAPSULE PO SCH ×3 (09:37→16:20)
[2021-03-17] MEDS: PANTOPRAZOLE 40 MG TABLET PO SCH (09:37)
[2021-03-17] MEDS: ONDANSETRON 4 MG/2 ML VIAL IV PRN (13:49)
[2021-03-17] MEDS ORDERED: hydrALAZINE 20 MG/1 ML VIAL IV PRN (14:26)
[2021-03-17] MEDS: amLODIPine 5 MG TABLET PO SCH (14:52)
[2021-03-17] MEDS ORDERED: NITROGLYCERIN SL 0.4 MG TABLET SL ONE (16:06)
[2021-03-17] MEDS ORDERED: ceFAZolin 2,000 MG/50 ML DUPLEX IV SCH (17:00)
[2021-03-17] MEDS: PHENYTOIN ER 100 MG CAPSULE PO SCH (21:29)
[2021-03-18 05:04] LABS: Basophils % 0.6 % (0.0-0.8); Eosinophils % 15.2 % (0.00-10.9); Hematocrit 31.5 VOL% (35.7-47.0); Immature Granulocytes % 0.3 %; Immature Granulocytes Absolute 0.02 #; Lymphocytes # 1.1 10*3/uL (1.4-4.0); Lymphocytes % 16.7 % (21.3-54.2); Mean Corpuscular HGB Conc 33.7 GM/DL (32-36); Mean Corpuscular Volume 91.8 FL (87-102); Mean Platelet Volume 11.1 FL (9.6-12.0); Monocytes % 12.2 % (1.7-12.7); White Blood Count 6.8 T/CUMM (4-12)
[2021-03-18 05:26] LABS: Hemoglobin 10.6 GM/DL (12.0-16.0); Platelet Count 122 T/CUMM (130-400); Red Blood Count 3.43 MC/CUMM (3.8-5.5)
[2021-03-18 05:29] LABS: Albumin 2.4 G/DL (3.4-5.0); Bilirubin,Total 0.6 MG/DL (0.2-1.0); Calcium 7.8 MG/DL (8.5-10.1); Osmolality,Calculated 279.5 MOS/KG (273-304); Potassium 4.1 MMOL/L (3.5-5.1); Total Protein 6.3 G/DL (6.4-8.2)
[2021-03-18] MEDS: LEVOTHYROXINE 25 MCG TABLET PO SCH (05:41)
[2021-03-18 05:46] LABS: Band Neutrophils 1 % (0-10); Eosinophils 15 % (0-10); Hypochromasia Slight; Lymphocytes 16 % (20-55); Segmented Neutrophils 62 % (50-85); Total Cells Counted 100
[2021-03-18 05:47] LABS: Microcytosis 1+; Platelet Estimate Adequate
[2021-03-18] MEDS ORDERED: SODIUM CHLORIDE 0.9% 250 ML IV SCH (07:30)
[2021-03-18] MEDS ORDERED: LIDOCAINE 1%/EPI INJ 20 ML VIAL ONE (07:48)
[2021-03-18] MEDS ORDERED: BUPIVACAINE MPF 0.25% 30 ML VIAL ONE (07:48)
[2021-03-18] MEDS ORDERED: HEPARIN 5,000 UNIT/1 ML VIAL ONE (07:48)
[2021-03-18] MEDS ORDERED: DEXMEDETOMIDINE 200 MCG/2 ML VIAL ONE (08:02)
[2021-03-18] MEDS ORDERED: LIDOCAINE 2% 5 ML VIAL ONE (08:03)
[2021-03-18] MEDS ORDERED: fentaNYL 100 MCG/2 ML VIAL ONE (08:03)
[2021-03-18] MEDS ORDERED: propofoL 200 MG/20 ML VIAL IV ONE ×2 (08:03→09:15)
[2021-03-18] MEDS ORDERED: MIDAZOLAM 2 MG/2 ML VIAL ONE (08:03)
[2021-03-18] MEDS ORDERED: SODIUM CHLORIDE 0.9% 100 ML IV ONE (08:03)
[2021-03-18] MEDS ORDERED: PHENYLEPHRINE 1 MG/10 ML SYRINGE IV ONE (09:15)
[2021-03-18] MEDS ORDERED: SEVOFLURANE 1 UNIT/15 MINUTE INH ONE (09:15)
[2021-03-18] MEDS ORDERED: PHENYLEPHRINE DRIP 20 MG/250 ML PREMIX IV ONE (09:30)
[2021-03-18] MEDS ORDERED: hydrALAZINE 20 MG/1 ML VIAL IV ONE ×2 (09:45→10:00)
[2021-03-18] MEDS: CALCIUM ACETATE 667 MG CAPSULE PO SCH ×4 (10:31→16:05)
[2021-03-18] MEDS: amLODIPine 5 MG TABLET PO SCH (10:32)
[2021-03-18] MEDS: PANTOPRAZOLE 40 MG TABLET PO SCH (10:32)
[2021-03-18] MEDS ORDERED: guaiFENesin 200 MG/10 ML UDCUP PO PRN (11:28)
[2021-03-18] MEDS: ONDANSETRON 4 MG/2 ML VIAL IV PRN (12:29)
[2021-03-18] MEDS: PHENYTOIN ER 100 MG CAPSULE PO SCH (20:28)
[2021-03-19 04:59] LABS: Basophils % 0.5 % (0.0-0.8); Eosinophils % 13.1 % (0.00-10.9); Hematocrit 29.7 VOL% (35.7-47.0); Hemoglobin 9.8 GM/DL (12.0-16.0); Immature Granulocytes % 0.1 %; Immature Granulocytes Absolute 0.01 #; Lymphocytes # 1.1 10*3/uL (1.4-4.0); Lymphocytes % 14.7 % (21.3-54.2); Mean Corpuscular Volume 92.2 FL (87-102); Mean Platelet Volume 10.6 FL (9.6-12.0); Monocytes % 12.4 % (1.7-12.7); Neutrophils % 59.2 % (38.7-73.9); Platelet Count 117 T/CUMM (130-400); Red Blood Count 3.22 MC/CUMM (3.8-5.5); Red Cell Distribution Width 14.7 % (9.3-17.3); White Blood Count 7.4 T/CUMM (4-12)
[2021-03-19 05:22] LABS: Eosinophils 8 % (0-10); Hypochromasia Slight; Lymphocytes 18 % (20-55); Microcytosis 1+; Platelet Estimate Adequate; Segmented Neutrophils 62 % (50-85); Total Cells Counted 100
[2021-03-19 05:23] LABS: Atypical Lymphocytes Few
[2021-03-19] MEDS: LEVOTHYROXINE 25 MCG TABLET PO SCH (05:31)
[2021-03-19 05:33] LABS: Albumin 2.2 G/DL (3.4-5.0); Bilirubin,Total 0.5 MG/DL (0.2-1.0); Calcium 7.3 MG/DL (8.5-10.1); Osmolality,Calculated 281.7 MOS/KG (273-304); Potassium 4.3 MMOL/L (3.5-5.1); Total Protein 5.7 G/DL (6.4-8.2)
[2021-03-19] MEDS: CALCIUM ACETATE 667 MG CAPSULE PO SCH ×2 (08:32→13:17)
[2021-03-19] MEDS: PANTOPRAZOLE 40 MG TABLET PO SCH (08:32)
[2021-03-19] MEDS ORDERED: amLODIPine 5 MG TABLET PO SCH (09:00)
[2021-03-19] MEDS ORDERED: HEPARIN 10,000 UNIT/10 ML VIAL IV SCH (10:45)
[2021-03-19] MEDS ORDERED: METOCLOPRAMIDE 10 MG/2 ML VIAL IV SCH (12:00)
[2021-03-19 12:25] VITALS: BP 132/79
== END 2021-03-19 13:58 | disposition home or self-care (01) | DRG 252 ==
LOC: EDBD → EDUNIT# → N.ED 14:20 → N.EDINP 14:20 → SUATTDRO 21:04 → N.TELES 23:08
PROVIDERS: ADMIT Internal Medicine; ATTEND Internal Medicine
PROC: VAVDCFI (2021-03-18 08:40)

== ENCOUNTER 2021-04-10 09:32 | Inpatient (IN) ==
[2021-04-10] MEDS ORDERED: MORPHINE 4 MG/1 ML VIAL IV STA (10:10)
[2021-04-10] MEDS ORDERED: NITROGLYCERIN SL 0.4 MG TABLET SL PRN (10:10)
[2021-04-10] MEDS ORDERED: ASPIRIN 325 MG TABLET PO STA (10:10)
[2021-04-10] MEDS ORDERED: hydrALAZINE 20 MG/1 ML VIAL IV STA ×2 (10:47→16:39)
[2021-04-10 11:02] LABS: Basophils # 0.1 10*3/uL (0.0-0.2); Basophils % 0.8 % (0.0-0.8); Eosinophils # 1.5 10*3/uL (0.0-0.87); Eosinophils % 21.7 % (0.00-10.9); Hemoglobin 8.8 GM/DL (12.0-16.0); Immature Granulocytes % 0.3 %; Immature Granulocytes Absolute 0.02 #; Lymphocytes % 14.4 % (21.3-54.2); Mean Corpuscular HGB Conc 30.3 GM/DL (32-36); Mean Corpuscular Volume 96.3 FL (87-102); Mean Platelet Volume 10.9 FL (9.6-12.0); Monocytes % 10.2 % (1.7-12.7); Neutrophils % 52.6 % (38.7-73.9); Platelet Count 193 T/CUMM (130-400); Red Blood Count 3.01 MC/CUMM (3.8-5.5); Red Cell Distribution Width 13.5 % (9.3-17.3); White Blood Count 7.1 T/CUMM (4-12)
[2021-04-10 11:22] LABS: Eosinophils 29 % (0-10); Hypochromasia Slight; Lymphocytes 9 % (20-55); Segmented Neutrophils 57 % (50-85); Total Cells Counted 100
[2021-04-10 11:23] LABS: Microcytosis Slight; Platelet Estimate Adequate
[2021-04-10 11:57] LABS: Alanine Aminotransferase < 6 U/L (13-56); Albumin 2.6 G/DL (3.4-5.0); Alkaline Phosphatase 93 U/L (45-117); Aspartate Amino Transferase 44 U/L (0-37); Blood Urea Nitrogen 13 MG/DL (7-18); Calcium 8.2 MG/DL (8.5-10.1); Carbon Dioxide 29 MMOL/L (21-32); Estimated Glom Filtration Rate 7 ML/MIN; Glucose 110 MG/DL (74-106); Osmolality,Calculated 279.4 MOS/KG (273-304); Potassium 4.1 MMOL/L (3.5-5.1); Sodium 140 MMOL/L (136-145)
[2021-04-10] MEDS ORDERED: GLUCAGON 1 MG VIAL IM PRN (16:29)
[2021-04-10] MEDS ORDERED: ONDANSETRON 4 MG/2 ML VIAL IV PRN (16:29)
[2021-04-10] MEDS ORDERED: DEXTROSE 50% 25 GM/50 ML VIAL IV PRN (16:29)
[2021-04-10] MEDS ORDERED: ACETAMINOPHEN 325 MG TABLET PO PRN (16:29)
[2021-04-10 17:13] LABS: Risk Ratio 2.98; VLDL Cholesterol 19.2 MG/DL
[2021-04-10] MEDS ORDERED: hydrALAZINE 20 MG/1 ML VIAL IV PRN (17:17)
[2021-04-10] MEDS ORDERED: METOPROLOL TARTRATE 5 MG/5 ML VIAL IV PRN (17:19)
[2021-04-10] MEDS: INSULIN LISPRO 100 UNIT/ML SUBCUT SCH ×2 (17:21→21:25)
[2021-04-10 18:18] LABS: Hematocrit 27.6 VOL% (35.7-47.0); Hemoglobin 8.4 GM/DL (12.0-16.0)
[2021-04-10] MEDS: CALCIUM ACETATE 667 MG CAPSULE PO SCH (18:21)
[2021-04-10] MEDS: PHENYTOIN ER 100 MG CAPSULE PO SCH (21:13)
[2021-04-10 23:25] LABS: Hematocrit 25.4 VOL% (35.7-47.0); Hemoglobin 7.5 GM/DL (12.0-16.0)
[2021-04-11 05:05] LABS: Basophils % 0.6 % (0.0-0.8); Eosinophils # 1.7 10*3/uL (0.0-0.87); Eosinophils % 23.6 % (0.00-10.9); Hematocrit 25.8 VOL% (35.7-47.0); Hemoglobin 7.9 GM/DL (12.0-16.0); Immature Granulocytes % 0.3 %; Immature Granulocytes Absolute 0.02 #; Lymphocytes # 0.7 10*3/uL (1.4-4.0); Lymphocytes % 10.2 % (21.3-54.2); Mean Corpuscular HGB Conc 30.6 GM/DL (32-36); Mean Corpuscular Volume 98.5 FL (87-102); Mean Platelet Volume 11.7 FL (9.6-12.0); Monocytes % 8.6 % (1.7-12.7); Neutrophils % 56.7 % (38.7-73.9); Platelet Count 195 T/CUMM (130-400); Red Blood Count 2.62 MC/CUMM (3.8-5.5); Red Cell Distribution Width 13.4 % (9.3-17.3); White Blood Count 7.1 T/CUMM (4-12)
[2021-04-11 05:45] LABS: Alanine Aminotransferase < 6 U/L (13-56); Albumin 2.3 G/DL (3.4-5.0); Alkaline Phosphatase 83 U/L (45-117); Aspartate Amino Transferase 23 U/L (0-37); Blood Urea Nitrogen 20 MG/DL (7-18); Calcium 8.5 MG/DL (8.5-10.1); Carbon Dioxide 33 MMOL/L (21-32); Estimated Glom Filtration Rate 5 ML/MIN; Glucose 84 MG/DL (74-106); Osmolality,Calculated 282.3 MOS/KG (273-304); Potassium 3.8 MMOL/L (3.5-5.1); Sodium 141 MMOL/L (136-145); Total Protein 7.3 G/DL (6.4-8.2)
[2021-04-11] MEDS: LEVOTHYROXINE 25 MCG TABLET PO SCH (06:01)
[2021-04-11 07:43] LABS: Anisocytosis 1+; Band Neutrophils 1 % (0-10); Eosinophils 28 % (0-10); Hypochromasia 1+; Lymphocytes 8 % (20-55); Macrocytosis 1+; Platelet Estimate Normal; Segmented Neutrophils 59 % (50-85); Total Cells Counted 100
[2021-04-11] MEDS: ASPIRIN CHEW 81 MG TABLET PO SCH (08:01)
[2021-04-11] MEDS: CALCIUM ACETATE 667 MG CAPSULE PO SCH ×3 (08:01→21:08)
[2021-04-11] MEDS: PANTOPRAZOLE 40 MG TABLET PO SCH (08:02)
[2021-04-11] MEDS: INSULIN LISPRO 100 UNIT/ML SUBCUT SCH ×4 (08:02→21:25)
[2021-04-11] MEDS: PHENYTOIN ER 100 MG CAPSULE PO SCH (21:09)
[2021-04-11] MEDS: GABAPENTIN 100 MG CAPSULE PO SCH ×2 (21:09→21:11)
[2021-04-12 05:51] LABS: Basophils # 0.1 10*3/uL (0.0-0.2); Basophils % 0.8 % (0.0-0.8); Eosinophils # 1.7 10*3/uL (0.0-0.87); Eosinophils % 21.8 % (0.00-10.9); Hematocrit 25.6 VOL% (35.7-47.0); Hemoglobin 7.9 GM/DL (12.0-16.0); Immature Granulocytes % 0.3 %; Immature Granulocytes Absolute 0.02 #; Lymphocytes # 1.1 10*3/uL (1.4-4.0); Lymphocytes % 14.1 % (21.3-54.2); Mean Corpuscular HGB Conc 30.9 GM/DL (32-36); Mean Corpuscular Volume 94.8 FL (87-102); Monocytes % 11.5 % (1.7-12.7); Neutrophils % 51.5 % (38.7-73.9); Platelet Count 198 T/CUMM (130-400); Red Cell Distribution Width 13.4 % (9.3-17.3); White Blood Count 7.9 T/CUMM (4-12)
[2021-04-12] MEDS: LEVOTHYROXINE 25 MCG TABLET PO SCH (06:06)
[2021-04-12 06:26] LABS: Eosinophils 20 % (0-10); Lymphocytes 10 % (20-55); Platelet Estimate Normal; Segmented Neutrophils 64 % (50-85); Total Cells Counted 100
[2021-04-12 06:28] LABS: Ovalocytes Slight; Polychromasia Slight
[2021-04-12 06:29] LABS: Hypochromasia Slight; Stomatocytes Slight
[2021-04-12] MEDS: PANTOPRAZOLE 40 MG TABLET PO SCH (08:15)
[2021-04-12] MEDS: GABAPENTIN 100 MG CAPSULE PO SCH ×3 (08:15→20:36)
[2021-04-12] MEDS: ASPIRIN CHEW 81 MG TABLET PO SCH (08:15)
[2021-04-12] MEDS: CALCIUM ACETATE 667 MG CAPSULE PO SCH ×3 (08:15→16:47)
[2021-04-12] MEDS: INSULIN LISPRO 100 UNIT/ML SUBCUT SCH (08:16)
[2021-04-12] MEDS: SIMETHICONE CHEW 125 MG TABLET PO PRN (14:27)
[2021-04-12] MEDS: PHENYTOIN ER 100 MG CAPSULE PO SCH (20:35)
[2021-04-13] MEDS: LEVOTHYROXINE 25 MCG TABLET PO SCH (06:05)
[2021-04-13] MEDS: SIMETHICONE CHEW 125 MG TABLET PO PRN (06:08)
[2021-04-13 06:35] LABS: Basophils % 0.6 % (0.0-0.8); Eosinophils # 1.9 10*3/uL (0.0-0.87); Eosinophils % 28.8 % (0.00-10.9); Hematocrit 25.2 VOL% (35.7-47.0); Hemoglobin 7.7 GM/DL (12.0-16.0); Immature Granulocytes % 0.3 %; Immature Granulocytes Absolute 0.02 #; Lymphocytes % 15.8 % (21.3-54.2); Mean Corpuscular HGB Conc 30.6 GM/DL (32-36); Mean Corpuscular Volume 95.8 FL (87-102); Mean Platelet Volume 11.7 FL (9.6-12.0); Monocytes % 11.7 % (1.7-12.7); Neutrophils % 42.8 % (38.7-73.9); Platelet Count 220 T/CUMM (130-400); Red Blood Count 2.63 MC/CUMM (3.8-5.5); Red Cell Distribution Width 13.4 % (9.3-17.3); White Blood Count 6.6 T/CUMM (4-12)
[2021-04-13 07:06] LABS: Anisocytosis 2+; Eosinophils 28 % (0-10); Giant Platelets Few; Lymphocytes 14 % (20-55); Macrocytosis 1+; Misc Morphology 3S; Platelet Estimate Normal; Segmented Neutrophils 50 % (50-85); Total Cells Counted 100
[2021-04-13] MEDS: GABAPENTIN 100 MG CAPSULE PO SCH ×2 (08:58→16:09)
[2021-04-13] MEDS: CALCIUM ACETATE 667 MG CAPSULE PO SCH ×2 (08:58→12:22)
[2021-04-13] MEDS: ASPIRIN CHEW 81 MG TABLET PO SCH (08:58)
[2021-04-13] MEDS: PANTOPRAZOLE 40 MG TABLET PO SCH (08:58)
[2021-04-13 11:35] VITALS: BP 156/91
== END 2021-04-13 15:50 | disposition home or self-care (01) | DRG 699 ==
LOC: N.ED 09:32 → N.EDINP 16:28 → SUATTDRO 16:28 → N.3E 17:29
PROVIDERS: ADMIT Internal Medicine; ATTEND Hospitalist

== ENCOUNTER 2021-08-31 06:15 | Inpatient (IN) ==
[2021-08-31] MEDS ORDERED: niCARdipine 25 MG/10 ML VIAL IV ONE (06:28)
[2021-08-31] MEDS ORDERED: MORPHINE 10 MG/1 ML VIAL IV STA (06:29)
[2021-08-31] MEDS ORDERED: MORPHINE 2 MG/1 ML SYRINGE ONE (06:29)
[2021-08-31] MEDS ORDERED: ONDANSETRON 4 MG/2 ML VIAL ONE (06:29)
[2021-08-31] MEDS ORDERED: ONDANSETRON 4 MG/2 ML VIAL IV STA (06:29)
[2021-08-31] MEDS ORDERED: niCARdipine INJ 25 MG in SODIUM CHLORIDE 0.9% 240 ML IV PRN (07:00)
[2021-08-31 07:05] LABS: Basophils # 0.1 10*3/uL (0.0-0.2); Basophils % 0.9 % (0.0-0.8); Eosinophils # 1.4 10*3/uL (0.0-0.87); Hematocrit 39.9 VOL% (35.7-47.0); Hemoglobin 11.9 GM/DL (12.0-16.0); Immature Granulocytes % 0.3 %; Immature Granulocytes Absolute 0.02 #; Lymphocytes # 1.4 10*3/uL (1.4-4.0); Lymphocytes % 20.4 % (21.3-54.2); Mean Corpuscular HGB Conc 29.8 GM/DL (32-36); Mean Corpuscular Volume 89.1 FL (87-102); Mean Platelet Volume 11.7 FL (9.6-12.0); Monocytes % 5.4 % (1.7-12.7); Platelet Count 113 T/CUMM (130-400); Red Blood Count 4.48 MC/CUMM (3.8-5.5); Red Cell Distribution Width 19.9 % (9.3-17.3)
[2021-08-31 07:28] LABS: Anisocytosis 2+; Burr Cells Few; Eosinophils 17 % (0-10); Lymphocytes 25 % (20-55); Macrocytosis 1+; Ovalocytes Few; Platelet Estimate Adequate; Segmented Neutrophils 54 % (50-85); Tear Drop Cells Few; Total Cells Counted 100
[2021-08-31 08:04] LABS: Albumin 3.4 G/DL (3.4-5.0); Bilirubin,Total 0.8 MG/DL (0.20-1.00); Calcium 8.6 MG/DL (8.5-10.1); Osmolality,Calculated 271.4 MOS/KG (273-304); Potassium 3.8 MMOL/L (3.5-5.1); Total Protein 8.8 G/DL (6.4-8.2)
[2021-08-31] MEDS ORDERED: ALBUTEROL 2.5 MG/3 ML NEB RESP TX PRN (08:33)
[2021-08-31] MEDS ORDERED: MORPHINE 2 MG/1 ML SYRINGE IV PRN (08:34)
[2021-08-31] MEDS ORDERED: ONDANSETRON 4 MG/2 ML VIAL IV PRN (08:34)
[2021-08-31] MEDS ORDERED: ENOXAPARIN 30 MG/0.3 ML SYRINGE SUBCUT SCH (09:00)
[2021-08-31 09:54] VITALS: BP 175/104
[2021-08-31] MEDS: APIXABAN 2.5 MG TABLET PO SCH ×2 (10:24→21:45)
[2021-08-31] MEDS: carvediloL 25 MG TABLET PO SCH ×2 (10:24→21:44)
[2021-08-31] MEDS: PANTOPRAZOLE 40 MG TABLET PO SCH (10:24)
[2021-08-31] MEDS: amLODIPine 10 MG TABLET PO SCH (10:24)
[2021-08-31] MEDS: METOCLOPRAMIDE 5 MG TABLET PO SCH ×2 (11:45→16:16)
[2021-08-31] MEDS: IMIPRAMINE 25 MG TABLET PO SCH (11:46)
[2021-08-31] MEDS: VANCOMYCIN 50 MG/ML 60 ML/BOTTLE PO SCH ×3 (12:00→21:45)
[2021-08-31] MEDS ORDERED: HEPARIN 10,000 UNIT/10 ML VIAL IV ONE (18:30)
[2021-08-31] MEDS ORDERED: PHENYTOIN ER 100 MG CAPSULE PO SCH (21:00)
[2021-09-01 05:44] LABS: White Blood Count 4.7 T/CUMM (4-12)
[2021-09-01 05:58] LABS: Calcium 8.2 MG/DL (8.5-10.1); Osmolality,Calculated 269.2 MOS/KG (273-304); Potassium 4.1 MMOL/L (3.5-5.1)
[2021-09-01 06:11] LABS: Hypochromasia 1+; Microcytosis 1+; Ovalocytes Few; Target Cells Slight
[2021-09-01 06:12] LABS: Platelet Estimate Decreased
[2021-09-01 06:33] LABS: Basophils % 0.9 % (0.0-0.8); Eosinophils # 1.1 10*3/uL (0.0-0.87); Eosinophils % 24.6 % (0.00-10.9); Immature Granulocytes % 0.2 %; Immature Granulocytes Absolute 0.01 #; Lymphocytes # 0.7 10*3/uL (1.4-4.0); Mean Corpuscular HGB Conc 29.1 GM/DL (32-36); Mean Corpuscular Volume 88.9 FL (87-102); Monocytes % 8.9 % (1.7-12.7); Neutrophils % 50.4 % (38.7-73.9); Platelet Count 95 T/CUMM (130-400); Red Blood Count 3.95 MC/CUMM (3.8-5.5); Red Cell Distribution Width 19.6 % (9.3-17.3)
[2021-09-01 06:36] LABS: Hemoglobin 10.2 GM/DL (12.0-16.0)
[2021-09-01 06:37] LABS: Hematocrit 35.1 VOL% (35.7-47.0)
[2021-09-01 06:57] LABS: Acanthocytes Few; Eosinophils 22 % (0-10); Lymphocytes 16 % (20-55); Metamyelocytes 1 %; Segmented Neutrophils 53 % (50-85); Total Cells Counted 100
[2021-09-01] MEDS: VANCOMYCIN 50 MG/ML 60 ML/BOTTLE PO SCH ×2 (08:12→12:01)
[2021-09-01] MEDS: carvediloL 25 MG TABLET PO SCH (08:12)
[2021-09-01] MEDS: PANTOPRAZOLE 40 MG TABLET PO SCH (08:13)
[2021-09-01] MEDS: IMIPRAMINE 25 MG TABLET PO SCH (08:13)
[2021-09-01] MEDS: METOCLOPRAMIDE 5 MG TABLET PO SCH ×2 (08:14→12:01)
[2021-09-01] MEDS: amLODIPine 10 MG TABLET PO SCH (08:14)
[2021-09-01] MEDS: APIXABAN 2.5 MG TABLET PO SCH (08:14)
[2021-09-01] MEDS ORDERED: HEPARIN 10,000 UNIT/10 ML VIAL IV SCH (10:45)
== END 2021-09-01 14:40 | disposition home or self-care (01) | DRG 640 ==
LOC: N.ED 06:15 → N.EDINP 08:33 → N.CC 09:29
PROVIDERS: ADMIT Internal Medicine; ATTEND Internal Medicine

== ENCOUNTER 2021-09-12 04:02 | Inpatient (IN) ==
[2021-09-12] MEDS ORDERED: FUROSEMIDE 100 MG/10 ML VIAL IV STA (04:25)
[2021-09-12 04:55] LABS: Basophils # 0.1 10*3/uL (0.0-0.2); Basophils % 0.8 % (0.0-0.8); Eosinophils # 1.6 10*3/uL (0.0-0.87); Eosinophils % 20.8 % (0.00-10.9); Hematocrit 38.2 VOL% (35.7-47.0); Immature Granulocytes % 0.1 %; Immature Granulocytes Absolute 0.01 #; Lymphocytes # 1.1 10*3/uL (1.4-4.0); Lymphocytes % 14.1 % (21.3-54.2); Mean Corpuscular HGB Conc 29.6 GM/DL (32-36); Monocytes % 5.1 % (1.7-12.7); Neutrophils % 59.1 % (38.7-73.9); Platelet Count 142 T/CUMM (130-400); Red Blood Count 4.39 MC/CUMM (3.8-5.5); Red Cell Distribution Width 19.7 % (9.3-17.3); White Blood Count 7.6 T/CUMM (4-12)
[2021-09-12 04:57] LABS: Hemoglobin 11.3 GM/DL (12.0-16.0)
[2021-09-12] MEDS ORDERED: NITROGLYCERIN 2% OINT 1 INCH/GM PACK TOP STA (04:57)
[2021-09-12 05:02] LABS: PT Patient Result 11.6 SECS (10.5-12.0)
[2021-09-12 05:13] LABS: Band Neutrophils 7 % (0-10); Eosinophils 22 % (0-10); Lymphocytes 16 % (20-55); Nucleated Red Blood Cells 11 (0-5); Platelet Estimate Adequate; Segmented Neutrophils 49 % (50-85); Total Cells Counted 100
[2021-09-12 05:14] LABS: Hypochromasia 1+
[2021-09-12 05:17] LABS: Albumin 3.6 G/DL (3.4-5.0); Bilirubin,Total 1.1 MG/DL (0.20-1.00); Calcium 9.1 MG/DL (8.5-10.1); Osmolality,Calculated 283.5 MOS/KG (273-304); Potassium 4.2 MMOL/L (3.5-5.1); Total Protein 8.9 G/DL (6.4-8.2)
[2021-09-12] MEDS ORDERED: hydrALAZINE 20 MG/1 ML VIAL IV STA (05:31)
[2021-09-12] MEDS ORDERED: niCARdipine INJ 25 MG in SODIUM CHLORIDE 0.9% 240 ML IV PRN (06:23)
[2021-09-12] MEDS ORDERED: ALBUTEROL 2.5 MG/3 ML NEB RESP TX PRN (06:27)
[2021-09-12] MEDS ORDERED: MORPHINE 2 MG/1 ML SYRINGE IV PRN (06:33)
[2021-09-12] MEDS ORDERED: DOCUSATE SODIUM 100 MG CAPSULE PO PRN (06:33)
[2021-09-12] MEDS ORDERED: ONDANSETRON 4 MG/2 ML VIAL IV PRN (06:33)
[2021-09-12] MEDS ORDERED: GLUCAGON 1 MG VIAL IM PRN (06:39)
[2021-09-12] MEDS ORDERED: DEXTROSE 50% 25 GM/50 ML SYRINGE IV PRN (06:39)
[2021-09-12] MEDS ORDERED: carvediloL 3.125 MG TABLET PO SCH (09:00)
[2021-09-12] MEDS: amLODIPine 10 MG TABLET PO SCH (09:58)
[2021-09-12] MEDS: APIXABAN 2.5 MG TABLET PO SCH ×2 (09:58→20:40)
[2021-09-12] MEDS: PANTOPRAZOLE 40 MG TABLET PO SCH (09:59)
[2021-09-12] MEDS: IMIPRAMINE 25 MG TABLET PO SCH (11:44)
[2021-09-12] MEDS ORDERED: HEPARIN 10,000 UNIT/10 ML VIAL IV SCH (11:45)
[2021-09-12] MEDS: CALCIUM ACETATE 667 MG CAPSULE PO SCH ×2 (11:47→16:43)
[2021-09-12] MEDS: METOCLOPRAMIDE 5 MG TABLET PO SCH ×2 (11:47→16:43)
[2021-09-12] MEDS ORDERED: VANCOMYCIN 50 MG/ML 60 ML/BOTTLE PO SCH (12:00)
[2021-09-12] MEDS: ACETAMINOPHEN 325 MG TABLET PO PRN (17:09)
[2021-09-12] MEDS: PHENYTOIN ER 100 MG CAPSULE PO SCH (20:40)
[2021-09-12] MEDS: carvediloL 6.25 MG TABLET PO SCH (20:40)
[2021-09-13] MEDS: METOCLOPRAMIDE 5 MG TABLET PO SCH ×3 (08:56→16:08)
[2021-09-13] MEDS: APIXABAN 2.5 MG TABLET PO SCH ×2 (08:56→21:12)
[2021-09-13] MEDS: CALCIUM ACETATE 667 MG CAPSULE PO SCH ×3 (08:56→16:08)
[2021-09-13] MEDS: carvediloL 6.25 MG TABLET PO SCH ×2 (08:56→21:12)
[2021-09-13] MEDS: amLODIPine 10 MG TABLET PO SCH (08:56)
[2021-09-13] MEDS: PANTOPRAZOLE 40 MG TABLET PO SCH (08:56)
[2021-09-13 13:19] LABS: Basophils % 0.7 % (0.0-0.8); Eosinophils # 1.5 10*3/uL (0.0-0.87); Hemoglobin 10.6 GM/DL (12.0-16.0); Immature Granulocytes % 0.2 %; Immature Granulocytes Absolute 0.01 #; Lymphocytes # 0.9 10*3/uL (1.4-4.0); Lymphocytes % 17.6 % (21.3-54.2); Mean Corpuscular HGB Conc 29.4 GM/DL (32-36); Monocytes % 6.4 % (1.7-12.7); Neutrophils % 47.1 % (38.7-73.9); Platelet Count 103 T/CUMM (130-400); Red Blood Count 4.14 MC/CUMM (3.8-5.5); Red Cell Distribution Width 19.5 % (9.3-17.3); White Blood Count 5.4 T/CUMM (4-12)
[2021-09-13] MEDS: IMIPRAMINE 25 MG TABLET PO SCH (13:39)
[2021-09-13 13:57] LABS: Calcium 8.7 MG/DL (8.5-10.1); Osmolality,Calculated 274.8 MOS/KG (273-304); Potassium 4.3 MMOL/L (3.5-5.1)
[2021-09-13 15:18] LABS: Band Neutrophils 1 % (0-10); Eosinophils 26 % (0-10); Lymphocytes 16 % (20-55); Segmented Neutrophils 52 % (50-85)
[2021-09-13 15:19] LABS: Anisocytosis 2+; Burr Cells Few; Macrocytosis Slight; Ovalocytes Few; Platelet Estimate Adequate; Total Cells Counted 100
[2021-09-13] MEDS ORDERED: lisinopriL 5 MG TABLET PO ONE (15:36)
[2021-09-13] MEDS: PHENYTOIN ER 100 MG CAPSULE PO SCH (21:12)
[2021-09-13] MEDS ORDERED: cloNIDine 0.1 MG TABLET PO ONE (23:59)
[2021-09-14 05:16] LABS: Basophils % 0.7 % (0.0-0.8); Eosinophils # 1.6 10*3/uL (0.0-0.87); Eosinophils % 27.6 % (0.00-10.9); Hematocrit 36.1 VOL% (35.7-47.0); Hemoglobin 10.7 GM/DL (12.0-16.0); Immature Granulocytes % 0.5 %; Immature Granulocytes Absolute 0.03 #; Lymphocytes # 0.9 10*3/uL (1.4-4.0); Lymphocytes % 15.9 % (21.3-54.2); Mean Corpuscular HGB Conc 29.6 GM/DL (32-36); Mean Corpuscular Volume 86.2 FL (87-102); Monocytes % 5.5 % (1.7-12.7); Neutrophils % 49.8 % (38.7-73.9); Platelet Count 124 T/CUMM (130-400); Red Blood Count 4.19 MC/CUMM (3.8-5.5); Red Cell Distribution Width 19.5 % (9.3-17.3); White Blood Count 5.8 T/CUMM (4-12)
[2021-09-14 05:37] LABS: Anisocytosis 1+; Eosinophils 30 % (0-10); Hypochromasia 1+; Lymphocytes 19 % (20-55); Microcytosis 1+; Segmented Neutrophils 48 % (50-85); Total Cells Counted 100
[2021-09-14 05:38] LABS: Ovalocytes Slight; Platelet Estimate Adequate
[2021-09-14 05:49] LABS: Calcium 8.8 MG/DL (8.5-10.1); Osmolality,Calculated 276.1 MOS/KG (273-304); Potassium 4.6 MMOL/L (3.5-5.1)
[2021-09-14] MEDS: CALCIUM ACETATE 667 MG CAPSULE PO SCH ×3 (08:20→18:06)
[2021-09-14] MEDS: METOCLOPRAMIDE 5 MG TABLET PO SCH ×3 (08:20→18:05)
[2021-09-14] MEDS: APIXABAN 2.5 MG TABLET PO SCH ×2 (08:20→21:57)
[2021-09-14] MEDS: carvediloL 6.25 MG TABLET PO SCH (08:21)
[2021-09-14] MEDS: PANTOPRAZOLE 40 MG TABLET PO SCH (08:21)
[2021-09-14] MEDS: amLODIPine 10 MG TABLET PO SCH (08:21)
[2021-09-14] MEDS: IMIPRAMINE 25 MG TABLET PO SCH (08:22)
[2021-09-14] MEDS ORDERED: lisinopriL 10 MG TABLET PO SCH (09:00)
[2021-09-14] MEDS ORDERED: hydrALAZINE 20 MG/1 ML VIAL IM PRN (12:01)
[2021-09-14] MEDS ORDERED: hydrALAZINE 20 MG/1 ML VIAL IV PRN (12:03)
[2021-09-14] MEDS: ACETAMINOPHEN 325 MG TABLET PO PRN (18:07)
[2021-09-14] MEDS ORDERED: carvediloL 12.5 MG TABLET PO SCH (21:00)
[2021-09-14] MEDS: carvediloL 25 MG TABLET PO SCH (21:57)
[2021-09-14] MEDS: PHENYTOIN ER 100 MG CAPSULE PO SCH (21:57)
[2021-09-15] MEDS: METOCLOPRAMIDE 5 MG TABLET PO SCH ×2 (08:40→13:30)
[2021-09-15] MEDS: amLODIPine 10 MG TABLET PO SCH (08:40)
[2021-09-15] MEDS: PANTOPRAZOLE 40 MG TABLET PO SCH (08:41)
[2021-09-15] MEDS: CALCIUM ACETATE 667 MG CAPSULE PO SCH ×2 (08:41→13:30)
[2021-09-15] MEDS: carvediloL 25 MG TABLET PO SCH (08:41)
[2021-09-15] MEDS: IMIPRAMINE 25 MG TABLET PO SCH (08:41)
[2021-09-15] MEDS: APIXABAN 2.5 MG TABLET PO SCH (08:41)
[2021-09-15 08:53] LABS: Calcium 8.7 MG/DL (8.5-10.1); Osmolality,Calculated 271.2 MOS/KG (273-304); Potassium 4.5 MMOL/L (3.5-5.1)
[2021-09-15] MEDS ORDERED: MULTIVITAMIN (BEROCCA) TABLET PO SCH (09:00)
[2021-09-15 13:27] VITALS: BP 140/76
== END 2021-09-15 14:48 | disposition home or self-care (01) | DRG 280 ==
LOC: N.ED 04:02 → SUATTDRO 06:28 → N.EDINP 06:28 → N.CC 09:14 → N.TELES 18:49
PROVIDERS: ADMIT Internal Medicine; ATTEND Internal Medicine

== ENCOUNTER 2021-10-05 05:55 | Observation (INO) ==
[2021-10-05] MEDS ORDERED: SODIUM CHLORIDE 0.9% 250 ML IV SCH (06:00)
[2021-10-05 07:51] LABS: Basophils # 0.1 10*3/uL (0.0-0.2); Eosinophils # 0.8 10*3/uL (0.0-0.87); Eosinophils % 13.3 % (0.00-10.9); Hematocrit 36.4 VOL% (35.7-47.0); Immature Granulocytes % 0.3 %; Immature Granulocytes Absolute 0.02 #; Lymphocytes # 1.1 10*3/uL (1.4-4.0); Lymphocytes % 17.9 % (21.3-54.2); Mean Corpuscular HGB Conc 30.2 GM/DL (32-36); Mean Corpuscular Volume 87.5 FL (87-102); Mean Platelet Volume 10.2 FL (9.6-12.0); Neutrophils % 61.5 % (38.7-73.9); Platelet Count 144 T/CUMM (130-400); Red Blood Count 4.16 MC/CUMM (3.8-5.5); Red Cell Distribution Width 19.5 % (9.3-17.3)
[2021-10-05 08:02] LABS: Calcium 8.6 MG/DL (8.5-10.1); Osmolality,Calculated 287.8 MOS/KG (273-304); Potassium 4.2 MMOL/L (3.5-5.1)
[2021-10-05] MEDS ORDERED: HEPARIN LOCK FLUSH 500 UNIT/5 ML SYRINGE IV ONE (08:27)
[2021-10-05 08:30] LABS: Eosinophils 15 % (0-10); Hypochromia 1+; Lymphocytes 13 % (20-55); Microcytosis Slight; Platelet Estimate Adequate; Segmented Neutrophils 67 % (50-85); Total Cells Counted 100
[2021-10-05] MEDS ORDERED: ROCURONIUM 50 MG/5 ML VIAL IV ONE (09:52)
[2021-10-05] MEDS ORDERED: SUCCINYLCHOLINE 200 MG/10 ML VIAL ONE (09:52)
[2021-10-05] MEDS ORDERED: LIDOCAINE 2% 5 ML VIAL ONE (09:52)
[2021-10-05] MEDS ORDERED: fentaNYL 100 MCG/2 ML VIAL ONE (09:52)
[2021-10-05] MEDS ORDERED: propofoL 200 MG/20 ML VIAL IV ONE (09:52)
[2021-10-05] MEDS ORDERED: MIDAZOLAM 2 MG/2 ML VIAL ONE (09:52)
[2021-10-05] MEDS ORDERED: LIDOCAINE 1%/EPI INJ 20 ML VIAL ONE (10:00)
[2021-10-05] MEDS ORDERED: BUPIVACAINE MPF 0.25% 30 ML VIAL ONE (10:00)
[2021-10-05] MEDS ORDERED: hydrALAZINE 20 MG/1 ML VIAL ONE (11:05)
[2021-10-05] MEDS ORDERED: hydrALAZINE 20 MG/1 ML VIAL IV ONE ×2 (11:29→11:42)
[2021-10-05] MEDS ORDERED: hydrALAZINE 20 MG/1 ML VIAL IV PRN ×2 (12:21→19:36)
[2021-10-05] MEDS ORDERED: GLUCAGON 1 MG VIAL IM PRN (12:21)
[2021-10-05] MEDS ORDERED: SIMETHICONE CHEW 125 MG TABLET PO PRN (12:21)
[2021-10-05] MEDS ORDERED: DOCUSATE SODIUM 100 MG CAPSULE PO PRN (12:21)
[2021-10-05] MEDS ORDERED: ACETAMINOPHEN 325 MG TABLET PO PRN (12:21)
[2021-10-05] MEDS ORDERED: ONDANSETRON 4 MG/2 ML VIAL IV PRN (12:21)
[2021-10-05] MEDS ORDERED: DEXTROSE 50% 25 GM/50 ML VIAL IV PRN (12:21)
[2021-10-05] MEDS ORDERED: LABETALOL 20 MG/4 ML SYRINGE IV ONE (12:25)
[2021-10-05 13:35] LABS: Thyroid Stimulating Hormone 9.82 uIU/ml (0.358-3.74)
[2021-10-05 14:06] LABS: Free T4 (Free Thyroxine) 1.01 NG/DL (0.76-1.46)
[2021-10-05] MEDS: INSULIN LISPRO 100 UNIT/ML SUBCUT SCH ×2 (16:31→21:00)
[2021-10-05] MEDS: CALCIUM ACETATE 667 MG CAPSULE PO SCH (16:56)
[2021-10-05] MEDS ORDERED: hydrALAZINE 20 MG/1 ML VIAL IV SCH (20:00)
[2021-10-05] MEDS: carvediloL 25 MG TABLET PO SCH (20:30)
[2021-10-05] MEDS: PHENYTOIN ER 100 MG CAPSULE PO SCH (20:33)
[2021-10-05] MEDS ORDERED: HEPARIN 5,000 UNIT/1 ML VIAL SUBCUT SCH (21:00)
[2021-10-06 07:11] LABS: Basophils # 0.1 10*3/uL (0.0-0.2); Eosinophils # 0.6 10*3/uL (0.0-0.87); Eosinophils % 11.8 % (0.00-10.9); Hematocrit 35.5 VOL% (35.7-47.0); Hemoglobin 10.7 GM/DL (12.0-16.0); Lymphocytes % 20.9 % (21.3-54.2); Mean Corpuscular HGB Conc 30.1 GM/DL (32-36); Mean Corpuscular Volume 87.9 FL (87-102); Mean Platelet Volume 11.1 FL (9.6-12.0); Monocytes % 6.4 % (1.7-12.7); Neutrophils % 59.9 % (38.7-73.9); Platelet Count 148 T/CUMM (130-400); Red Blood Count 4.04 MC/CUMM (3.8-5.5); Red Cell Distribution Width 18.9 % (9.3-17.3)
[2021-10-06 07:30] LABS: Bilirubin,Total 0.7 MG/DL (0.20-1.00); Calcium 8.6 MG/DL (8.5-10.1); Osmolality,Calculated 287.1 MOS/KG (273-304); Potassium 5.4 MMOL/L (3.5-5.1); Risk Ratio 3.25; Total Protein 8.2 G/DL (6.4-8.2); VLDL Cholesterol 21.6 MG/DL
[2021-10-06 07:42] LABS: Anisocytosis 1+; Band Neutrophils 1 % (0-10); Burr Cells Few; Eosinophils 16 % (0-10); Lymphocytes 21 % (20-55); Ovalocytes Few; Platelet Estimate Adequate; Poikilocytosis Slight; Segmented Neutrophils 57 % (50-85); Target Cells Few; Total Cells Counted 100
[2021-10-06] MEDS: carvediloL 25 MG TABLET PO SCH ×2 (09:02→22:14)
[2021-10-06] MEDS: amLODIPine 10 MG TABLET PO SCH (09:02)
[2021-10-06] MEDS: CALCIUM ACETATE 667 MG CAPSULE PO SCH ×3 (09:03→17:36)
[2021-10-06] MEDS: IMIPRAMINE 25 MG TABLET PO SCH (09:03)
[2021-10-06] MEDS: PANTOPRAZOLE 40 MG TABLET PO SCH (09:03)
[2021-10-06] MEDS: INSULIN LISPRO 100 UNIT/ML SUBCUT SCH ×4 (09:09→22:14)
[2021-10-06] MEDS ORDERED: HEPARIN 10,000 UNIT/10 ML VIAL IV PRN (13:43)
[2021-10-06] MEDS: PHENYTOIN ER 100 MG CAPSULE PO SCH (22:13)
[2021-10-07] MEDS ORDERED: CLINDAMYCIN INJ 900 MG/50 ML PREMIX IV ONE (07:00)
[2021-10-07 08:26] LABS: Albumin 2.8 G/DL (3.4-5.0); Bilirubin,Total 1.2 MG/DL (0.20-1.00); Calcium 8.3 MG/DL (8.5-10.1); Osmolality,Calculated 283.2 MOS/KG (273-304); Potassium 4.9 MMOL/L (3.5-5.1); Total Protein 8.4 G/DL (6.4-8.2)
[2021-10-07] MEDS: INSULIN LISPRO 100 UNIT/ML SUBCUT SCH ×4 (09:02→21:39)
[2021-10-07] MEDS ORDERED: TISSUE ADHESIVE 1 EACH APPLICATOR TOP ONE (09:07)
[2021-10-07] MEDS ORDERED: BUPIVACAINE MPF 0.25% 30 ML VIAL ONE (09:07)
[2021-10-07] MEDS ORDERED: LIDOCAINE 1%/EPI INJ 20 ML VIAL ONE (09:08)
[2021-10-07] MEDS ORDERED: LIDOCAINE 2% 5 ML VIAL ONE (09:26)
[2021-10-07] MEDS ORDERED: ETOMIDATE 40 MG/20 ML VIAL IV ONE (09:26)
[2021-10-07] MEDS ORDERED: PHENYLEPHRINE 1 MG/10 ML SYRINGE IV ONE ×3 (09:26→09:54)
[2021-10-07] MEDS ORDERED: fentaNYL 100 MCG/2 ML VIAL ONE (09:26)
[2021-10-07] MEDS ORDERED: propofoL 200 MG/20 ML VIAL IV ONE (09:26)
[2021-10-07] MEDS ORDERED: ePHEDrine 50 MG/ML VIAL ONE (09:49)
[2021-10-07] MEDS ORDERED: SODIUM CHLORIDE 0.9% 250 ML IV ONE (09:54)
[2021-10-07] MEDS ORDERED: PHENYLEPHRINE 10 MG/1 ML VIAL IV ONE (09:54)
[2021-10-07] MEDS: CALCIUM ACETATE 667 MG CAPSULE PO SCH ×3 (11:44→16:58)
[2021-10-07] MEDS: IMIPRAMINE 25 MG TABLET PO SCH (11:46)
[2021-10-07] MEDS: PANTOPRAZOLE 40 MG TABLET PO SCH (11:47)
[2021-10-07] MEDS: carvediloL 25 MG TABLET PO SCH ×2 (11:47→21:37)
[2021-10-07] MEDS: amLODIPine 10 MG TABLET PO SCH (11:47)
[2021-10-07] MEDS: PHENYTOIN ER 100 MG CAPSULE PO SCH (21:37)
[2021-10-08 07:42] LABS: Basophils % 0.6 % (0.0-0.8); Eosinophils # 0.5 10*3/uL (0.0-0.87); Eosinophils % 10.6 % (0.00-10.9); Hematocrit 34.7 VOL% (35.7-47.0); Hemoglobin 10.6 GM/DL (12.0-16.0); Immature Granulocytes % 0.2 %; Immature Granulocytes Absolute 0.01 #; Lymphocytes # 1.1 10*3/uL (1.4-4.0); Lymphocytes % 23.2 % (21.3-54.2); Mean Corpuscular HGB Conc 30.5 GM/DL (32-36); Mean Platelet Volume 11.6 FL (9.6-12.0); Monocytes % 7.3 % (1.7-12.7); Neutrophils % 58.1 % (38.7-73.9); Platelet Count 127 T/CUMM (130-400); Red Blood Count 3.99 MC/CUMM (3.8-5.5); Red Cell Distribution Width 18.3 % (9.3-17.3); White Blood Count 4.9 T/CUMM (4-12)
[2021-10-08] MEDS: INSULIN LISPRO 100 UNIT/ML SUBCUT SCH ×2 (07:55→12:08)
[2021-10-08 08:00] LABS: Calcium 8.3 MG/DL (8.5-10.1); Osmolality,Calculated 274.1 MOS/KG (273-304); Potassium 5.4 MMOL/L (3.5-5.1)
[2021-10-08 08:33] VITALS: BP 127/94
[2021-10-08] MEDS: CALCIUM ACETATE 667 MG CAPSULE PO SCH ×2 (10:13→12:59)
[2021-10-08] MEDS: IMIPRAMINE 25 MG TABLET PO SCH (12:55)
[2021-10-08] MEDS: carvediloL 25 MG TABLET PO SCH (12:56)
[2021-10-08] MEDS: amLODIPine 10 MG TABLET PO SCH (12:56)
[2021-10-08] MEDS: PANTOPRAZOLE 40 MG TABLET PO SCH (12:56)
== END 2021-10-08 14:50 | disposition home or self-care (01) ==
LOC: SUATTDRO → N.OR 05:55 → N.TELES 05:55 → N.SDSINP 05:59 → SUATTDRO 12:21 → N.TELES 16:14
PROVIDERS: ADMIT Internal Medicine; ATTEND Internal Medicine

== ENCOUNTER 2021-12-26 09:37 | Inpatient (IN) ==
[2021-12-26] MEDS ORDERED: SODIUM CHLORIDE 0.9% 500 ML IV STA (10:06)
[2021-12-26 11:02] LABS: Basophils % 0.7 % (0.0-0.8); Eosinophils # 0.2 10*3/uL (0.0-0.87); Eosinophils % 4.4 % (0.00-10.9); Hematocrit 39.2 VOL% (35.7-47.0); Hemoglobin 12.2 GM/DL (12.0-16.0); Immature Granulocytes % 0.4 %; Immature Granulocytes Absolute 0.02 #; Lymphocytes % 18.6 % (21.3-54.2); Mean Corpuscular HGB Conc 31.1 GM/DL (32-36); Mean Corpuscular Volume 90.5 FL (87-102); Mean Platelet Volume 12.1 FL (9.6-12.0); Monocytes % 7.9 % (1.7-12.7); Platelet Count 173 T/CUMM (130-400); Red Blood Count 4.33 MC/CUMM (3.8-5.5); Red Cell Distribution Width 15.1 % (9.3-17.3); White Blood Count 5.5 T/CUMM (4-12)
[2021-12-26 11:15] LABS: Alanine Aminotransferase < 9 U/L (13-56); Albumin 1.6 G/DL (3.4-5.0); Alkaline Phosphatase 143 U/L (45-117); Aspartate Amino Transferase 46 U/L (0-37); Blood Urea Nitrogen 39 MG/DL (7-18); Calcium 7.2 MG/DL (8.5-10.1); Carbon Dioxide 24 MMOL/L (21-32); Estimated Glom Filtration Rate 3 ML/MIN; Glucose 93 MG/DL (74-106); Osmolality,Calculated 270.7 MOS/KG (273-304); Sodium 131 MMOL/L (136-145); Total Protein 7.3 G/DL (6.4-8.2)
[2021-12-26] MEDS ORDERED: ONDANSETRON 4 MG/2 ML VIAL ONE ×2 (11:31→14:04)
[2021-12-26 11:39] LABS: Band Neutrophils 4 % (0-10); Eosinophils 6 % (0-10); Hypochromia 1+; Lymphocytes 16 % (20-55); Segmented Neutrophils 67 % (50-85); Total Cells Counted 100
[2021-12-26 11:40] LABS: Microcytosis Slight
[2021-12-26] MEDS ORDERED: VANCOMYCIN 1,000 MG VIAL INTRAPERIT ONE ×3 (12:40→18:00)
[2021-12-26] MEDS ORDERED: GLUCAGON 1 MG VIAL IM PRN (14:38)
[2021-12-26] MEDS ORDERED: DEXTROSE 10% 250 ML BAG IV PRN (14:57)
[2021-12-26] MEDS: HEPARIN 5,000 UNIT/1 ML VIAL SUBCUT SCH (16:55)
[2021-12-26] MEDS: ONDANSETRON 4 MG/2 ML VIAL IV PRN (19:06)
[2021-12-27] MEDS ORDERED: PROMETHAZINE INJ 12.5 MG in SODIUM CHLORIDE 0.9% 50 ML IV PRN (03:56)
[2021-12-27] MEDS: ONDANSETRON 4 MG/2 ML VIAL IV PRN (04:06)
[2021-12-27] MEDS: HEPARIN 5,000 UNIT/1 ML VIAL SUBCUT SCH ×2 (04:07→16:45)
[2021-12-27 06:48] LABS: Basophils % 0.4 % (0.0-0.8); Eosinophils % 0.4 % (0.00-10.9); Hematocrit 43.4 VOL% (35.7-47.0); Hemoglobin 13.6 GM/DL (12.0-16.0); Immature Granulocytes % 0.4 %; Immature Granulocytes Absolute 0.02 #; Lymphocytes # 0.6 10*3/uL (1.4-4.0); Lymphocytes % 10.9 % (21.3-54.2); Mean Corpuscular HGB Conc 31.3 GM/DL (32-36); Mean Corpuscular Volume 87.7 FL (87-102); Mean Platelet Volume 12.8 FL (9.6-12.0); Monocytes % 5.1 % (1.7-12.7); Neutrophils % 82.8 % (38.7-73.9); Platelet Count 190 T/CUMM (130-400); Red Blood Count 4.95 MC/CUMM (3.8-5.5); Red Cell Distribution Width 14.8 % (9.3-17.3); White Blood Count 5.5 T/CUMM (4-12)
[2021-12-27 07:10] LABS: Alanine Aminotransferase < 6 U/L (13-56); Albumin 2.1 G/DL (3.4-5.0); Alkaline Phosphatase 165 U/L (45-117); Aspartate Amino Transferase 45 U/L (0-37); Blood Urea Nitrogen 45 MG/DL (7-18); Calcium 7.6 MG/DL (8.5-10.1); Carbon Dioxide 33 MMOL/L (21-32); Estimated Glom Filtration Rate 3 ML/MIN; Glucose 132 MG/DL (74-106); Osmolality,Calculated 279.4 MOS/KG (273-304); Sodium 133 MMOL/L (136-145); Total Protein 8.2 G/DL (6.4-8.2)
[2021-12-27 07:18] LABS: Hypochromia 1+; Lymphocytes 10 % (20-55); Microcytosis 1+; Ovalocytes Slight; Segmented Neutrophils 87 % (50-85); Total Cells Counted 100
[2021-12-27 07:22] LABS: Potassium 2.5 MMOL/L (3.5-5.1)
[2021-12-27] MEDS ORDERED: SODIUM CHLORIDE 0.9% 100 ML IV ONE (08:39)
[2021-12-27] MEDS: POTASSIUM CHLORIDE RIDER 10 MEQ/100 ML PREMIX IV SCH ×4 (08:54→12:28)
[2021-12-27] MEDS ORDERED: AZTREONAM 2,000 MG VIAL INTRAPERIT SCH ×2 (09:00→21:00)
[2021-12-27] MEDS ORDERED: VANCOMYCIN 1,000 MG VIAL INTRAPERIT SCH ×2 (09:00→21:00)
[2021-12-27] MEDS ORDERED: POTASSIUM CHLORIDE RIDER 10 MEQ/100 ML PREMIX IV PRN (17:38)
[2021-12-27] MEDS: PHENYTOIN 100 MG/2 ML VIAL IV SCH (18:44)
[2021-12-28] MEDS ORDERED: AZTREONAM 2,000 MG VIAL INTRAPERIT SCH
[2021-12-28] MEDS ORDERED: VANCOMYCIN 1,000 MG VIAL INTRAPERIT SCH
[2021-12-28] MEDS: DEXT 5% NACL 0.9% KCL 20 MEQ 20 MEQ/1,000 ML BAG IV SCH ×2 (00:09→17:52)
[2021-12-28] MEDS: HEPARIN 5,000 UNIT/1 ML VIAL SUBCUT SCH ×2 (04:34→14:07)
[2021-12-28] MEDS: PHENYTOIN 100 MG/2 ML VIAL IV SCH ×3 (04:35→16:19)
[2021-12-28 05:23] LABS: Basophils % 0.4 % (0.0-0.8); Eosinophils # 0.2 10*3/uL (0.0-0.87); Eosinophils % 3.3 % (0.00-10.9); Hematocrit 36.8 VOL% (35.7-47.0); Hemoglobin 11.6 GM/DL (12.0-16.0); Immature Granulocytes % 0.2 %; Immature Granulocytes Absolute 0.01 #; Lymphocytes % 19.6 % (21.3-54.2); Mean Corpuscular HGB Conc 31.5 GM/DL (32-36); Mean Corpuscular Volume 86.2 FL (87-102); Mean Platelet Volume 12.3 FL (9.6-12.0); Neutrophils % 66.5 % (38.7-73.9); Platelet Count 209 T/CUMM (130-400); Red Blood Count 4.27 MC/CUMM (3.8-5.5); Red Cell Distribution Width 14.8 % (9.3-17.3); White Blood Count 5.2 T/CUMM (4-12)
[2021-12-28 05:44] LABS: Calcium 6.9 MG/DL (8.5-10.1); Osmolality,Calculated 283.8 MOS/KG (273-304); Potassium 2.6 MMOL/L (3.5-5.1)
[2021-12-28 08:54] LABS: Free T4 (Free Thyroxine) 1.12 NG/DL (0.76-1.46)
[2021-12-28] MEDS ORDERED: POTASSIUM CHLORIDE INJ 50 MEQ in SODIUM CHLORIDE 0.9% 500 ML IV ONE (11:00)
[2021-12-28] MEDS: MAGNESIUM SULF RIDER 1 GM/100 ML PREMIX IV SCH ×3 (11:37→14:07)
[2021-12-28] MEDS ORDERED: LEVOTHYROXINE 100 MCG VIAL IV ONE (15:00)
[2021-12-28] MEDS ORDERED: POTASSIUM CHLORIDE 20 MEQ TABLET PO SCH (21:00)
[2021-12-29] MEDS: HEPARIN 5,000 UNIT/1 ML VIAL SUBCUT SCH ×2 (02:58→16:46)
[2021-12-29] MEDS: PHENYTOIN 100 MG/2 ML VIAL IV SCH ×3 (02:58→16:47)
[2021-12-29] MEDS: cefTRIAXone 1,000 MG VIAL INTRAPERIT SCH (05:40)
[2021-12-29 05:55] LABS: Basophils % 0.3 % (0.0-0.8); Eosinophils # 0.3 10*3/uL (0.0-0.87); Eosinophils % 4.4 % (0.00-10.9); Hematocrit 37.8 VOL% (35.7-47.0); Hemoglobin 11.8 GM/DL (12.0-16.0); Immature Granulocytes % 0.2 %; Immature Granulocytes Absolute 0.01 #; Lymphocytes # 1.4 10*3/uL (1.4-4.0); Lymphocytes % 24.6 % (21.3-54.2); Mean Corpuscular HGB Conc 31.2 GM/DL (32-36); Mean Corpuscular Volume 87.9 FL (87-102); Monocytes % 8.9 % (1.7-12.7); Neutrophils % 61.6 % (38.7-73.9); Platelet Count 181 T/CUMM (130-400); Red Cell Distribution Width 14.9 % (9.3-17.3); White Blood Count 5.9 T/CUMM (4-12)
[2021-12-29 06:26] LABS: Calcium 7.5 MG/DL (8.5-10.1); Osmolality,Calculated 272.4 MOS/KG (273-304); Potassium 4.1 MMOL/L (3.5-5.1)
[2021-12-29] MEDS: LEVOTHYROXINE 100 MCG VIAL IV SCH (06:39)
[2021-12-29] MEDS: POTASSIUM CHLORIDE 20 MEQ TABLET PO SCH (09:15)
[2021-12-29] MEDS: ONDANSETRON 4 MG/2 ML VIAL IV PRN (12:39)
[2021-12-29] MEDS ORDERED: HEPARIN 1,000 UNIT/1 ML VIAL INTRAPERIT ONE (18:00)
[2021-12-29] MEDS: DEXT 5% NACL 0.9% KCL 20 MEQ 20 MEQ/1,000 ML BAG IV SCH (18:37)
[2021-12-30] MEDS: PHENYTOIN 100 MG/2 ML VIAL IV SCH ×3 (00:50→17:08)
[2021-12-30] MEDS: cefTRIAXone 1,000 MG VIAL INTRAPERIT SCH (01:01)
[2021-12-30] MEDS: HEPARIN 5,000 UNIT/1 ML VIAL SUBCUT SCH ×2 (02:02→17:08)
[2021-12-30] MEDS: DEXT 5% NACL 0.9% KCL 20 MEQ 20 MEQ/1,000 ML BAG IV SCH (02:07)
[2021-12-30 05:27] LABS: Basophils % 0.3 % (0.0-0.8); Eosinophils # 0.5 10*3/uL (0.0-0.87); Eosinophils % 6.5 % (0.00-10.9); Hematocrit 37.1 VOL% (35.7-47.0); Hemoglobin 11.6 GM/DL (12.0-16.0); Immature Granulocytes % 0.6 %; Immature Granulocytes Absolute 0.05 #; Lymphocytes # 1.3 10*3/uL (1.4-4.0); Lymphocytes % 16.3 % (21.3-54.2); Mean Corpuscular HGB Conc 31.3 GM/DL (32-36); Mean Corpuscular Volume 89.2 FL (87-102); Mean Platelet Volume 11.9 FL (9.6-12.0); Monocytes % 11.6 % (1.7-12.7); Neutrophils % 64.7 % (38.7-73.9); Platelet Count 170 T/CUMM (130-400); Red Blood Count 4.16 MC/CUMM (3.8-5.5); Red Cell Distribution Width 14.9 % (9.3-17.3); White Blood Count 7.8 T/CUMM (4-12)
[2021-12-30 05:45] LABS: Calcium 7.6 MG/DL (8.5-10.1); Osmolality,Calculated 277.1 MOS/KG (273-304); Potassium 3.4 MMOL/L (3.5-5.1)
[2021-12-30] MEDS: LEVOTHYROXINE 100 MCG VIAL IV SCH (05:46)
[2021-12-30] MEDS: POTASSIUM CHLORIDE 20 MEQ TABLET PO SCH (09:27)
[2021-12-30] MEDS: ONDANSETRON 4 MG/2 ML VIAL IV PRN (19:36)
[2021-12-31] MEDS: DEXT 5% NACL 0.9% KCL 20 MEQ 20 MEQ/1,000 ML BAG IV SCH ×2 (01:04→17:15)
[2021-12-31] MEDS: cefTRIAXone 1,000 MG VIAL INTRAPERIT SCH (01:06)
[2021-12-31] MEDS: PHENYTOIN 100 MG/2 ML VIAL IV SCH ×2 (01:09→08:31)
[2021-12-31] MEDS: HEPARIN 5,000 UNIT/1 ML VIAL SUBCUT SCH (04:48)
[2021-12-31] MEDS: LEVOTHYROXINE 100 MCG VIAL IV SCH ×2 (04:50)
[2021-12-31 05:44] LABS: Basophils % 0.3 % (0.0-0.8); Eosinophils # 0.8 10*3/uL (0.0-0.87); Eosinophils % 9.9 % (0.00-10.9); Hematocrit 38.8 VOL% (35.7-47.0); Hemoglobin 12.3 GM/DL (12.0-16.0); Immature Granulocytes % 0.8 %; Immature Granulocytes Absolute 0.06 #; Lymphocytes # 1.4 10*3/uL (1.4-4.0); Lymphocytes % 17.9 % (21.3-54.2); Mean Corpuscular HGB Conc 31.7 GM/DL (32-36); Mean Corpuscular Volume 87.8 FL (87-102); Mean Platelet Volume 12.4 FL (9.6-12.0); Monocytes % 11.2 % (1.7-12.7); Neutrophils % 59.9 % (38.7-73.9); Platelet Count 195 T/CUMM (130-400); Red Blood Count 4.42 MC/CUMM (3.8-5.5); Red Cell Distribution Width 14.8 % (9.3-17.3); White Blood Count 7.8 T/CUMM (4-12)
[2021-12-31 06:03] LABS: Calcium 7.4 MG/DL (8.5-10.1); Osmolality,Calculated 274.1 MOS/KG (273-304); Potassium 3.3 MMOL/L (3.5-5.1)
[2021-12-31] MEDS: POTASSIUM CHLORIDE 20 MEQ TABLET PO SCH ×2 (09:11→21:29)
[2021-12-31] MEDS ORDERED: GLUCAGON 1 MG VIAL IM PRN (11:16)
[2021-12-31] MEDS ORDERED: DEXTROSE 10% 250 ML BAG IV PRN (11:56)
[2021-12-31] MEDS: CALCIUM ACETATE 667 MG CAPSULE PO SCH ×2 (12:42→17:15)
[2021-12-31] MEDS: MENTHOL/ZINC OXIDE OINT 71 GM JAR TOP SCH ×2 (15:19→21:30)
[2021-12-31] MEDS: APIXABAN 2.5 MG TABLET PO SCH (21:29)
[2021-12-31] MEDS: PHENYTOIN ER 100 MG CAPSULE PO SCH (21:29)
[2021-12-31] MEDS: minoxidiL 2.5 MG TABLET PO SCH (21:30)
[2022-01-01] MEDS: cefTRIAXone 1,000 MG VIAL INTRAPERIT SCH (00:47)
[2022-01-01 05:29] LABS: Basophils % 0.3 % (0.0-0.8); Eosinophils # 0.9 10*3/uL (0.0-0.87); Eosinophils % 13.1 % (0.00-10.9); Hematocrit 43.2 VOL% (35.7-47.0); Hemoglobin 13.4 GM/DL (12.0-16.0); Immature Granulocytes % 0.3 %; Immature Granulocytes Absolute 0.02 #; Lymphocytes # 1.1 10*3/uL (1.4-4.0); Lymphocytes % 16.5 % (21.3-54.2); Mean Corpuscular Volume 88.2 FL (87-102); Mean Platelet Volume 11.9 FL (9.6-12.0); Monocytes % 9.2 % (1.7-12.7); Neutrophils % 60.6 % (38.7-73.9); Platelet Count 230 T/CUMM (130-400); Red Cell Distribution Width 15.2 % (9.3-17.3); White Blood Count 6.7 T/CUMM (4-12)
[2022-01-01] MEDS: PANTOPRAZOLE 40 MG TABLET PO SCH (05:43)
[2022-01-01] MEDS: LEVOTHYROXINE 25 MCG TABLET PO SCH (05:43)
[2022-01-01 05:44] LABS: Osmolality,Calculated 275.1 MOS/KG (273-304); Potassium 4.6 MMOL/L (3.5-5.1)
[2022-01-01 05:54] LABS: Anisocytosis 1+; Band Neutrophils 3 % (0-10); Burr Cells 1+; Eosinophils 12 % (0-10); Lymphocytes 12 % (20-55); Macrocytosis Slight; Platelet Estimate Normal; Segmented Neutrophils 65 % (50-85); Smudge Cells Few; Total Cells Counted 100
[2022-01-01] MEDS: minoxidiL 2.5 MG TABLET PO SCH ×2 (08:46→21:56)
[2022-01-01] MEDS: NEBIVOLOL 10 MG TABLET PO SCH (08:46)
[2022-01-01] MEDS: CALCIUM ACETATE 667 MG CAPSULE PO SCH ×3 (08:46→16:22)
[2022-01-01] MEDS: APIXABAN 2.5 MG TABLET PO SCH ×2 (08:46→21:56)
[2022-01-01] MEDS: POTASSIUM CHLORIDE 20 MEQ TABLET PO SCH ×2 (08:46→21:57)
[2022-01-01] MEDS: MENTHOL/ZINC OXIDE OINT 71 GM JAR TOP SCH ×2 (08:47→21:59)
[2022-01-01] MEDS: VANCOMYCIN 125 MG CAPSULE PO SCH ×3 (10:27→21:56)
[2022-01-01] MEDS: PHENYTOIN ER 100 MG CAPSULE PO SCH (21:55)
[2022-01-02] MEDS: cefTRIAXone 1,000 MG VIAL INTRAPERIT SCH (01:05)
[2022-01-02] MEDS: VANCOMYCIN 125 MG CAPSULE PO SCH ×4 (04:07→22:16)
[2022-01-02 05:33] LABS: Basophils % 0.3 % (0.0-0.8); Eosinophils # 0.9 10*3/uL (0.0-0.87); Eosinophils % 13.7 % (0.00-10.9); Hematocrit 38.2 VOL% (35.7-47.0); Immature Granulocytes % 0.2 %; Immature Granulocytes Absolute 0.01 #; Lymphocytes # 1.2 10*3/uL (1.4-4.0); Lymphocytes % 18.4 % (21.3-54.2); Mean Corpuscular HGB Conc 31.4 GM/DL (32-36); Mean Corpuscular Volume 88.4 FL (87-102); Mean Platelet Volume 11.8 FL (9.6-12.0); Monocytes % 7.2 % (1.7-12.7); Neutrophils % 60.2 % (38.7-73.9); Platelet Count 243 T/CUMM (130-400); Red Blood Count 4.32 MC/CUMM (3.8-5.5); Red Cell Distribution Width 15.2 % (9.3-17.3); White Blood Count 6.4 T/CUMM (4-12)
[2022-01-02 05:48] LABS: Calcium 7.4 MG/DL (8.5-10.1); Osmolality,Calculated 270.2 MOS/KG (273-304); Potassium 5.3 MMOL/L (3.5-5.1)
[2022-01-02] MEDS: PANTOPRAZOLE 40 MG TABLET PO SCH (05:58)
[2022-01-02] MEDS: LEVOTHYROXINE 25 MCG TABLET PO SCH (05:59)
[2022-01-02 06:01] LABS: Eosinophils 9 % (0-10); Lymphocytes 14 % (20-55); Platelet Estimate Normal; Segmented Neutrophils 73 % (50-85); Total Cells Counted 100
[2022-01-02] MEDS ORDERED: SODIUM CHLORIDE 0.9% 250 ML IV ONE (08:14)
[2022-01-02] MEDS: SODIUM ZIRCONIUM CYCLOSILICATE 10 GM PACK PO SCH ×3 (09:23→22:15)
[2022-01-02] MEDS: APIXABAN 2.5 MG TABLET PO SCH ×2 (09:24→22:16)
[2022-01-02] MEDS: CALCIUM ACETATE 667 MG CAPSULE PO SCH ×3 (09:24→16:13)
[2022-01-02] MEDS: NEBIVOLOL 10 MG TABLET PO SCH (09:27)
[2022-01-02] MEDS: minoxidiL 2.5 MG TABLET PO SCH (09:28)
[2022-01-02] MEDS: MENTHOL/ZINC OXIDE OINT 71 GM JAR TOP SCH ×2 (09:32→22:18)
[2022-01-02] MEDS ORDERED: HEPARIN 1,000 UNIT/1 ML VIAL INTRAPERIT SCH (16:00)
[2022-01-02] MEDS: PHENYTOIN ER 100 MG CAPSULE PO SCH (22:16)
[2022-01-03] MEDS: cefTRIAXone 1,000 MG VIAL INTRAPERIT SCH (00:59)
[2022-01-03] MEDS: VANCOMYCIN 125 MG CAPSULE PO SCH ×4 (04:45→20:20)
[2022-01-03 05:20] LABS: Basophils % 0.4 % (0.0-0.8); Eosinophils # 0.8 10*3/uL (0.0-0.87); Eosinophils % 11.6 % (0.00-10.9); Hematocrit 35.9 VOL% (35.7-47.0); Hemoglobin 11.1 GM/DL (12.0-16.0); Immature Granulocytes % 0.1 %; Immature Granulocytes Absolute 0.01 #; Lymphocytes # 1.2 10*3/uL (1.4-4.0); Lymphocytes % 17.4 % (21.3-54.2); Mean Corpuscular HGB Conc 30.9 GM/DL (32-36); Mean Corpuscular Volume 88.4 FL (87-102); Mean Platelet Volume 11.5 FL (9.6-12.0); Monocytes % 6.1 % (1.7-12.7); Neutrophils % 64.4 % (38.7-73.9); Platelet Count 242 T/CUMM (130-400); Red Blood Count 4.06 MC/CUMM (3.8-5.5); White Blood Count 6.7 T/CUMM (4-12)
[2022-01-03 05:49] LABS: Calcium 7.4 MG/DL (8.5-10.1); Osmolality,Calculated 271.1 MOS/KG (273-304); Potassium 4.1 MMOL/L (3.5-5.1)
[2022-01-03 05:51] LABS: Eosinophils 6 % (0-10); Hypochromia Slight; Lymphocytes 14 % (20-55); Microcytosis Slight; Platelet Estimate Adequate; Segmented Neutrophils 76 % (50-85); Total Cells Counted 100
[2022-01-03] MEDS: LEVOTHYROXINE 25 MCG TABLET PO SCH (05:56)
[2022-01-03] MEDS: PANTOPRAZOLE 40 MG TABLET PO SCH (05:56)
[2022-01-03] MEDS: CALCIUM ACETATE 667 MG CAPSULE PO SCH ×3 (08:43→16:54)
[2022-01-03] MEDS: APIXABAN 2.5 MG TABLET PO SCH ×2 (08:44→20:19)
[2022-01-03] MEDS: MENTHOL/ZINC OXIDE OINT 71 GM JAR TOP SCH ×2 (08:44→20:23)
[2022-01-03 12:38] LABS: Alanine Aminotransferase < 6 U/L (13-56); Albumin 1.2 G/DL (3.4-5.0); Alkaline Phosphatase 117 U/L (45-117); Aspartate Amino Transferase 21 U/L (0-37); Bilirubin,Indirect 0.2 MG/DL (0.0-1.0); Bilirubin,Total < 0.39 MG/DL (0.20-1.00); Total Protein 5.2 G/DL (6.4-8.2)
[2022-01-03] MEDS: PHENYTOIN ER 100 MG CAPSULE PO SCH (20:20)
[2022-01-04] MEDS: cefTRIAXone 1,000 MG VIAL INTRAPERIT SCH (00:14)
[2022-01-04] MEDS: VANCOMYCIN 125 MG CAPSULE PO SCH ×2 (04:35→08:33)
[2022-01-04 05:18] LABS: Basophils % 0.4 % (0.0-0.8); Eosinophils # 0.8 10*3/uL (0.0-0.87); Eosinophils % 10.6 % (0.00-10.9); Hematocrit 35.7 VOL% (35.7-47.0); Hemoglobin 11.3 GM/DL (12.0-16.0); Immature Granulocytes % 0.3 %; Immature Granulocytes Absolute 0.02 #; Lymphocytes % 13.7 % (21.3-54.2); Mean Corpuscular HGB Conc 31.7 GM/DL (32-36); Mean Corpuscular Volume 87.3 FL (87-102); Mean Platelet Volume 11.5 FL (9.6-12.0); Monocytes % 5.9 % (1.7-12.7); Neutrophils % 69.1 % (38.7-73.9); Platelet Count 225 T/CUMM (130-400); Red Blood Count 4.09 MC/CUMM (3.8-5.5); Red Cell Distribution Width 14.9 % (9.3-17.3); White Blood Count 7.2 T/CUMM (4-12)
[2022-01-04] MEDS: PANTOPRAZOLE 40 MG TABLET PO SCH (05:53)
[2022-01-04] MEDS: LEVOTHYROXINE 25 MCG TABLET PO SCH (05:53)
[2022-01-04 07:18] LABS: Hepatitis B Surface Ag Quant < 0.10 Index; Hepatitis B Surface Ag Result Non-Reactive (NonReactive); Hepatitis C Virus Ab Quant > 11.00 Index; Hepatitis C Virus Ab Result Reactive (NonReactive)
[2022-01-04] MEDS: CALCIUM ACETATE 667 MG CAPSULE PO SCH ×2 (08:33→11:46)
[2022-01-04] MEDS: APIXABAN 2.5 MG TABLET PO SCH (08:33)
[2022-01-04] MEDS: MENTHOL/ZINC OXIDE OINT 71 GM JAR TOP SCH (08:34)
[2022-01-04] MEDS: NEBIVOLOL 10 MG TABLET PO SCH (08:52)
[2022-01-04] MEDS: minoxidiL 2.5 MG TABLET PO SCH (08:53)
[2022-01-04 11:40] VITALS: BP 100/68
== END 2022-01-04 14:35 | disposition home or self-care (01) | DRG 867 ==
LOC: N.ED 09:37 → SUATTDRO 14:38 → N.EDINP 14:38 → N.5E 23:04
PROVIDERS: ADMIT Emergency Medicine; ATTEND Internal Medicine

== ENCOUNTER 2022-01-31 07:52 | Observation (INO) ==
[2022-01-31] MEDS ORDERED: SODIUM CHLORIDE 0.9% 500 ML IV STA ×2 (09:14→10:17)
[2022-01-31] MEDS ORDERED: ASPIRIN 325 MG TABLET PO STA (09:14)
[2022-01-31 09:30] LABS: Basophils % 0.2 % (0.0-0.8); Eosinophils # 0.3 10*3/uL (0.0-0.87); Eosinophils % 3.6 % (0.00-10.9); Hemoglobin 15.7 GM/DL (12.0-16.0); Immature Granulocytes % 0.3 %; Immature Granulocytes Absolute 0.03 #; Lymphocytes # 1.8 10*3/uL (1.4-4.0); Lymphocytes % 19.4 % (21.3-54.2); Mean Corpuscular HGB Conc 30.8 GM/DL (32-36); Mean Corpuscular Volume 90.3 FL (87-102); Mean Platelet Volume 12.5 FL (9.6-12.0); Monocytes # 0.3 10*3/uL (0.11-0.8); Monocytes % 2.9 % (1.7-12.7); Neutrophils % 73.6 % (38.7-73.9); Platelet Count 286 T/CUMM (130-400); Red Blood Count 5.65 MC/CUMM (3.8-5.5); White Blood Count 9.3 T/CUMM (4-12)
[2022-01-31 10:26] LABS: Albumin 2.2 G/DL (3.4-5.0); Bilirubin,Total 0.6 MG/DL (0.20-1.00); Calcium 8.4 MG/DL (8.5-10.1); Osmolality,Calculated 274.1 MOS/KG (273-304); Total Protein 9.1 G/DL (6.4-8.2)
[2022-01-31 10:27] LABS: Potassium 2.4 MMOL/L (3.5-5.1)
[2022-01-31] MEDS ORDERED: VANCOMYCIN INJ 750 MG in SODIUM CHLORIDE 0.9% 250 ML IV STA (10:58)
[2022-01-31] MEDS ORDERED: SODIUM CHLORIDE 0.9% 1,000 ML IV STA (11:10)
[2022-01-31] MEDS: SODIUM CHLOR 0.9% KCL 20 MEQ 20 MEQ/1,000 ML BAG IV SCH ×3 (13:00→20:14)
[2022-01-31] MEDS ORDERED: LACTATED RINGERS 1,000 ML IV ONE (14:15)
[2022-01-31] MEDS ORDERED: POTASSIUM CHLORIDE 20 MEQ TABLET PO STA (15:47)
[2022-01-31] MEDS ORDERED: GLUCAGON 1 MG VIAL IM PRN (16:17)
[2022-01-31] MEDS ORDERED: ONDANSETRON 4 MG/2 ML VIAL IV PRN (16:17)
[2022-01-31] MEDS ORDERED: DEXTROSE 10% 250 ML BAG IV PRN (16:28)
[2022-01-31] MEDS: MIDODRINE 5 MG TABLET PO SCH ×2 (16:29→21:38)
[2022-01-31] MEDS ORDERED: MAGNESIUM SULF RIDER 2 GM/50 ML PREMIX IV ONE (16:37)
[2022-01-31] MEDS: HEPARIN 5,000 UNIT/1 ML VIAL SUBCUT SCH (21:38)
[2022-02-01 06:44] LABS: Basophils # 0.1 10*3/uL (0.0-0.2); Basophils % 0.8 % (0.0-0.8); Eosinophils # 0.4 10*3/uL (0.0-0.87); Hemoglobin 11.7 GM/DL (12.0-16.0); Immature Granulocytes % 0.5 %; Immature Granulocytes Absolute 0.04 #; Lymphocytes # 1.4 10*3/uL (1.4-4.0); Lymphocytes % 18.2 % (21.3-54.2); Mean Corpuscular HGB Conc 31.6 GM/DL (32-36); Mean Corpuscular Volume 88.1 FL (87-102); Mean Platelet Volume 13.2 FL (9.6-12.0); Monocytes # 0.6 10*3/uL (0.11-0.8); Monocytes % 7.8 % (1.7-12.7); Neutrophils % 67.7 % (38.7-73.9); Platelet Count 136 T/CUMM (130-400); Red Cell Distribution Width 14.9 % (9.3-17.3); White Blood Count 7.9 T/CUMM (4-12)
[2022-02-01 06:46] LABS: Phosphorous 3.8 MG/DL (2.5-4.9)
[2022-02-01 07:08] LABS: Calcium 7.1 MG/DL (8.5-10.1)
[2022-02-01] MEDS ORDERED: POTASSIUM CHLORIDE 20 MEQ TABLET PO ONE (08:30)
[2022-02-01] MEDS: MIDODRINE 5 MG TABLET PO SCH ×3 (09:26→20:15)
[2022-02-01] MEDS: HEPARIN 5,000 UNIT/1 ML VIAL SUBCUT SCH (09:28)
[2022-02-01] MEDS: CALCIUM ACETATE 667 MG CAPSULE PO SCH ×2 (12:32→17:28)
[2022-02-01] MEDS ORDERED: APIXABAN 2.5 MG TABLET PO SCH (21:00)
[2022-02-01] MEDS ORDERED: PHENYTOIN ER 100 MG CAPSULE PO SCH (21:00)
[2022-02-02] MEDS ORDERED: LEVOTHYROXINE 25 MCG TABLET PO SCH (06:30)
[2022-02-02 06:50] LABS: Basophils # 0.1 10*3/uL (0.0-0.2); Basophils % 0.8 % (0.0-0.8); Eosinophils # 0.6 10*3/uL (0.0-0.87); Eosinophils % 8.9 % (0.00-10.9); Hematocrit 38.5 VOL% (35.7-47.0); Hemoglobin 12.1 GM/DL (12.0-16.0); Immature Granulocytes % 0.3 %; Immature Granulocytes Absolute 0.02 #; Lymphocytes # 1.5 10*3/uL (1.4-4.0); Lymphocytes % 22.6 % (21.3-54.2); Mean Corpuscular HGB Conc 31.4 GM/DL (32-36); Mean Corpuscular Volume 89.1 FL (87-102); Mean Platelet Volume 11.8 FL (9.6-12.0); Monocytes # 0.5 10*3/uL (0.11-0.8); Monocytes % 6.9 % (1.7-12.7); Neutrophils % 60.5 % (38.7-73.9); Platelet Count 183 T/CUMM (130-400); Red Blood Count 4.32 MC/CUMM (3.8-5.5); Red Cell Distribution Width 14.8 % (9.3-17.3); White Blood Count 6.6 T/CUMM (4-12)
[2022-02-02 07:28] LABS: Calcium 7.9 MG/DL (8.5-10.1); Osmolality,Calculated 272.2 MOS/KG (273-304); Potassium 3.4 MMOL/L (3.5-5.1)
[2022-02-02] MEDS ORDERED: BUPIVACAINE MPF 0.25% 30 ML VIAL ONE (07:44)
[2022-02-02] MEDS ORDERED: LIDOCAINE 1%/EPI INJ 20 ML VIAL ONE (07:44)
[2022-02-02] MEDS ORDERED: POTASSIUM CHLORIDE 20 MEQ TABLET PO ONE (08:15)
[2022-02-02] MEDS ORDERED: NEBIVOLOL 10 MG TABLET PO SCH (09:00)
[2022-02-02] MEDS ORDERED: ROSUVASTATIN 10 MG TABLET PO SCH (09:00)
[2022-02-02] MEDS: CALCIUM ACETATE 667 MG CAPSULE PO SCH ×2 (09:42→12:19)
[2022-02-02] MEDS: MIDODRINE 5 MG TABLET PO SCH (09:43)
[2022-02-02 12:22] VITALS: BP 93/65
== END 2022-02-02 13:20 | disposition home or self-care (01) ==
LOC: N.3E 07:52 → N.ED 07:52 → SUATTDRO 16:17 → N.3E 18:07
PROVIDERS: ADMIT Internal Medicine; ATTEND Internal Medicine

== ENCOUNTER 2022-03-28 20:41 | Observation (INO) ==
[2022-03-28] MEDS ORDERED: SODIUM CHLORIDE 0.9% 500 ML IV STA (21:16)
[2022-03-28 21:39] LABS: Basophils % 0.3 % (0.0-0.8); Eosinophils # 0.1 10*3/uL (0.0-0.87); Eosinophils % 0.6 % (0.00-10.9); Hematocrit 35.3 VOL% (35.7-47.0); Hemoglobin 11.3 GM/DL (12.0-16.0); Immature Granulocytes % 0.4 %; Immature Granulocytes Absolute 0.04 #; Lymphocytes # 2.2 10*3/uL (1.4-4.0); Lymphocytes % 23.3 % (21.3-54.2); Mean Corpuscular Volume 87.6 FL (87-102); Mean Platelet Volume 12.8 FL (9.6-12.0); Monocytes # 0.6 10*3/uL (0.11-0.8); Monocytes % 6.4 % (1.7-12.7); Platelet Count 196 T/CUMM (130-400); Red Blood Count 4.03 MC/CUMM (3.8-5.5); Red Cell Distribution Width 15.4 % (9.3-17.3); White Blood Count 9.4 T/CUMM (4-12)
[2022-03-29 00:26] LABS: Calcium 7.3 MG/DL (8.5-10.1)
[2022-03-29 00:32] LABS: Potassium 2.2 MMOL/L (3.5-5.1)
[2022-03-29] MEDS ORDERED: POTASSIUM CHLORIDE RIDER 20 MEQ/100 ML PREMIX IV STA ×2 (00:57→01:00)
[2022-03-29] MEDS ORDERED: POTASSIUM CHLORIDE RIDER 20 MEQ/200 ML PREMIX IV STA (00:59)
[2022-03-29] MEDS ORDERED: POTASSIUM CHLORIDE 20 MEQ TABLET PO STA (01:07)
[2022-03-29] MEDS ORDERED: ACETAMINOPHEN 325 MG TABLET PO PRN (01:33)
[2022-03-29] MEDS ORDERED: GLUCAGON 1 MG VIAL IM PRN (01:33)
[2022-03-29] MEDS ORDERED: ONDANSETRON 4 MG/2 ML VIAL IV PRN (01:33)
[2022-03-29] MEDS ORDERED: SIMETHICONE CHEW 125 MG TABLET PO PRN (01:33)
[2022-03-29] MEDS ORDERED: DEXTROSE 10% 250 ML BAG IV PRN (01:53)
[2022-03-29] MEDS ORDERED: MAGNESIUM SULF RIDER 2 GM/50 ML PREMIX IV ONE (02:19)
[2022-03-29 05:48] LABS: Calcium 7.4 MG/DL (8.5-10.1); Osmolality,Calculated 269.5 MOS/KG (273-304); Potassium 2.8 MMOL/L (3.5-5.1); Thyroid Stimulating Hormone 12.2 uIU/ml (0.358-3.74)
[2022-03-29] MEDS ORDERED: MAGNESIUM SULF RIDER 2 GM/50 ML PREMIX IV PRN (06:43)
[2022-03-29] MEDS ORDERED: POTASSIUM CHLORIDE 20 MEQ TABLET PO SCH (09:00)
[2022-03-29] MEDS ORDERED: DOCUSATE SODIUM 100 MG CAPSULE PO SCH (09:00)
[2022-03-29] MEDS ORDERED: PANTOPRAZOLE 40 MG TABLET PO SCH (09:00)
[2022-03-29] MEDS: INSULIN REGULAR 100 UNIT/ML SUBCUT SCH ×2 (09:12→12:21)
[2022-03-29 12:04] VITALS: BP 113/72
[2022-03-29 12:58] LABS: Calcium 7.2 MG/DL (8.5-10.1); Osmolality,Calculated 278.1 MOS/KG (273-304); Potassium 3.2 MMOL/L (3.5-5.1)
== END 2022-03-29 13:30 | disposition home health service (06) ==
LOC: N.ED 20:41 → N.TELES 20:41
PROVIDERS: ADMIT Emergency Medicine; ATTEND Emergency Medicine

== ENCOUNTER 2022-04-09 13:15 | Inpatient (IN) ==
[2022-04-09 14:47] LABS: Basophils % 0.3 % (0.0-0.8); Eosinophils % 0.3 % (0.00-10.9); Hematocrit 39.2 VOL% (35.7-47.0); Hemoglobin 11.8 GM/DL (12.0-16.0); Immature Granulocytes % 0.9 %; Immature Granulocytes Absolute 0.08 #; Lymphocytes # 1.1 10*3/uL (1.4-4.0); Mean Corpuscular HGB Conc 30.1 GM/DL (32-36); Mean Platelet Volume 11.3 FL (9.6-12.0); Monocytes # 0.4 10*3/uL (0.11-0.8); Monocytes % 4.5 % (1.7-12.7); Platelet Count 231 T/CUMM (130-400); Red Blood Count 4.26 MC/CUMM (3.8-5.5); Red Cell Distribution Width 14.8 % (9.3-17.3); White Blood Count 9.3 T/CUMM (4-12)
[2022-04-09 15:04] LABS: Albumin 1.7 G/DL (3.4-5.0); Calcium 8.8 MG/DL (8.5-10.1); Osmolality,Calculated 272.5 MOS/KG (273-304); Potassium 4.2 MMOL/L (3.5-5.1); Total Protein 8.1 G/DL (6.4-8.2)
[2022-04-09] MEDS ORDERED: PANTOPRAZOLE 40 MG VIAL IV STA (16:52)
[2022-04-09] MEDS ORDERED: ONDANSETRON 4 MG/2 ML VIAL IV STA (16:52)
[2022-04-09] MEDS ORDERED: SODIUM CHLORIDE 0.9% 1,000 ML IV STA (16:52)
[2022-04-09] MEDS ORDERED: VANCOMYCIN 50 MG/ML 60 ML/BOTTLE PO ONE (16:55)
[2022-04-09] MEDS ORDERED: VANCOMYCIN 125 MG CAPSULE PO ONE (17:30)
[2022-04-09] MEDS ORDERED: ACETAMINOPHEN 325 MG TABLET PO PRN (17:34)
[2022-04-09] MEDS ORDERED: GLUCAGON 1 MG VIAL IM PRN (17:34)
[2022-04-09] MEDS ORDERED: PROMETHAZINE 25 MG/1 ML VIAL IM PRN (17:34)
[2022-04-09] MEDS ORDERED: ONDANSETRON 4 MG/2 ML VIAL IV PRN (17:34)
[2022-04-09] MEDS ORDERED: DEXTROSE 10% 250 ML BAG IV PRN (17:45)
[2022-04-09 18:17] LABS: Thyroid Stimulating Hormone 16.8 uIU/ml (0.358-3.74)
[2022-04-09] MEDS: INSULIN LISPRO 100 UNIT/ML SUBCUT SCH (20:17)
[2022-04-09] MEDS: PHENYTOIN ER 100 MG CAPSULE PO SCH (20:51)
[2022-04-09] MEDS ORDERED: APIXABAN 2.5 MG TABLET PO SCH (21:00)
[2022-04-09] MEDS ORDERED: MIDODRINE 5 MG TABLET PO SCH (21:00)
[2022-04-10 04:47] LABS: Calcium 7.4 MG/DL (8.5-10.1); Osmolality,Calculated 268.5 MOS/KG (273-304); Potassium 4.4 MMOL/L (3.5-5.1)
[2022-04-10 04:56] LABS: Basophils % 0.3 % (0.0-0.8); Eosinophils # 0.1 10*3/uL (0.0-0.87); Eosinophils % 0.8 % (0.00-10.9); Hematocrit 30.7 VOL% (35.7-47.0); Immature Granulocytes % 0.4 %; Immature Granulocytes Absolute 0.04 #; Lymphocytes # 2.2 10*3/uL (1.4-4.0); Lymphocytes % 23.2 % (21.3-54.2); Mean Corpuscular HGB Conc 31.3 GM/DL (32-36); Mean Platelet Volume 11.2 FL (9.6-12.0); Monocytes # 0.6 10*3/uL (0.11-0.8); Monocytes % 6.1 % (1.7-12.7); NRBC # 0.04 10*3/uL; Neutrophils % 69.2 % (38.7-73.9); Red Blood Count 3.45 MC/CUMM (3.8-5.5); Red Cell Distribution Width 14.6 % (9.3-17.3); White Blood Count 9.5 T/CUMM (4-12)
[2022-04-10 05:02] LABS: Hemoglobin 9.6 GM/DL (12.0-16.0); Platelet Count 115 T/CUMM (130-400)
[2022-04-10] MEDS: LEVOTHYROXINE 50 MCG TABLET PO SCH (06:04)
[2022-04-10] MEDS: INSULIN LISPRO 100 UNIT/ML SUBCUT SCH (07:47)
[2022-04-10] MEDS ORDERED: MAGNESIUM SULF RIDER 4 GM/100 ML PREMIX IV ONE (08:29)
[2022-04-10] MEDS ORDERED: DEXTROSE 5% NACL 0.9% 1,000 ML IV SCH (08:30)
[2022-04-10 08:56] LABS: Free T4 (Free Thyroxine) 1.07 NG/DL (0.76-1.46)
[2022-04-10] MEDS ORDERED: ROSUVASTATIN 10 MG TABLET PO SCH (09:00)
[2022-04-10] MEDS: MIDODRINE 5 MG TABLET PO SCH ×3 (11:02→20:32)
[2022-04-10] MEDS: CALCIUM ACETATE 667 MG CAPSULE PO SCH ×2 (12:58→17:17)
[2022-04-10] MEDS: FIDAXOMICIN 200 MG TABLET PO SCH (20:32)
[2022-04-10] MEDS: PHENYTOIN ER 100 MG CAPSULE PO SCH (20:32)
[2022-04-10] MEDS: HEPARIN 5,000 UNIT/1 ML VIAL SUBCUT SCH (20:33)
[2022-04-11] MEDS: LEVOTHYROXINE 50 MCG TABLET PO SCH (05:58)
[2022-04-11 06:39] LABS: Basophils % 0.4 % (0.0-0.8); Eosinophils # 0.2 10*3/uL (0.0-0.87); Hemoglobin 10.5 GM/DL (12.0-16.0); Immature Granulocytes % 0.4 %; Immature Granulocytes Absolute 0.04 #; Lymphocytes % 22.8 % (21.3-54.2); Mean Corpuscular HGB Conc 30.9 GM/DL (32-36); Mean Corpuscular Volume 91.2 FL (87-102); Mean Platelet Volume 11.9 FL (9.6-12.0); Monocytes # 0.7 10*3/uL (0.11-0.8); Monocytes % 7.5 % (1.7-12.7); Neutrophils % 66.9 % (38.7-73.9); Platelet Count 160 T/CUMM (130-400); Red Blood Count 3.73 MC/CUMM (3.8-5.5); Red Cell Distribution Width 14.6 % (9.3-17.3)
[2022-04-11 06:40] LABS: Osmolality,Calculated 270.2 MOS/KG (273-304); Potassium 3.5 MMOL/L (3.5-5.1)
[2022-04-11] MEDS ORDERED: DEXTROSE 5% NACL 0.9% 1,000 ML IV SCH (08:00)
[2022-04-11] MEDS: CALCIUM ACETATE 667 MG CAPSULE PO SCH ×3 (09:44→17:22)
[2022-04-11] MEDS: MIDODRINE 5 MG TABLET PO SCH ×3 (09:44→20:53)
[2022-04-11] MEDS: FIDAXOMICIN 200 MG TABLET PO SCH ×2 (09:44→20:52)
[2022-04-11] MEDS: HEPARIN 5,000 UNIT/1 ML VIAL SUBCUT SCH (09:45)
[2022-04-11] MEDS: PHENYTOIN ER 100 MG CAPSULE PO SCH (20:53)
[2022-04-11] MEDS: APIXABAN 2.5 MG TABLET PO SCH (20:53)
[2022-04-12 05:03] LABS: Basophils % 0.2 % (0.0-0.8); Eosinophils # 0.2 10*3/uL (0.0-0.87); Eosinophils % 2.2 % (0.00-10.9); Hematocrit 30.9 VOL% (35.7-47.0); Hemoglobin 9.4 GM/DL (12.0-16.0); Immature Granulocytes % 0.3 %; Immature Granulocytes Absolute 0.03 #; Lymphocytes # 2.4 10*3/uL (1.4-4.0); Lymphocytes % 25.9 % (21.3-54.2); Mean Corpuscular HGB Conc 30.4 GM/DL (32-36); Mean Corpuscular Volume 88.3 FL (87-102); Monocytes # 0.7 10*3/uL (0.11-0.8); Monocytes % 7.3 % (1.7-12.7); Neutrophils % 64.1 % (38.7-73.9); Platelet Count 189 T/CUMM (130-400); Red Cell Distribution Width 14.4 % (9.3-17.3); White Blood Count 9.2 T/CUMM (4-12)
[2022-04-12 05:18] LABS: Calcium 7.9 MG/DL (8.5-10.1); Osmolality,Calculated 264.7 MOS/KG (273-304); Potassium 3.1 MMOL/L (3.5-5.1)
[2022-04-12] MEDS: LEVOTHYROXINE 50 MCG TABLET PO SCH (06:11)
[2022-04-12] MEDS: MIDODRINE 5 MG TABLET PO SCH (08:27)
[2022-04-12] MEDS: CALCIUM ACETATE 667 MG CAPSULE PO SCH (08:27)
[2022-04-12] MEDS: FIDAXOMICIN 200 MG TABLET PO SCH (08:27)
[2022-04-12] MEDS: APIXABAN 2.5 MG TABLET PO SCH (08:27)
[2022-04-12 13:25] VITALS: BP 101/73
== END 2022-04-12 11:45 | disposition home or self-care (01) | DRG 371 ==
LOC: N.ED 13:15 → N.3E 17:32 → SUATTDRO 17:32 → N.3E 18:58
PROVIDERS: ADMIT Family Medicine; ATTEND Emergency Medicine

== ENCOUNTER 2022-05-04 16:29 | Inpatient (IN) ==
[2022-05-04] MEDS ORDERED: SODIUM CHLORIDE 0.9% 500 ML IV STA (17:04)
[2022-05-04] MEDS ORDERED: ACETAMINOPHEN 325 MG TABLET PO PRN (17:31)
[2022-05-04] MEDS ORDERED: ONDANSETRON 4 MG/2 ML VIAL IV PRN (17:31)
[2022-05-04] MEDS ORDERED: GLUCAGON 1 MG VIAL IM PRN (17:31)
[2022-05-04] MEDS ORDERED: MIDODRINE 5 MG TABLET PO ONE (17:47)
[2022-05-04] MEDS ORDERED: DEXTROSE 10% 250 ML BAG IV PRN (17:48)
[2022-05-04] MEDS ORDERED: VANCOMYCIN INJ 1,250 MG in SODIUM CHLORIDE 0.9% 250 ML IV PRN (18:04)
[2022-05-04] MEDS: LACTATED RINGERS 1,000 ML IV SCH (18:17)
[2022-05-04 18:23] LABS: Calcium 8.8 MG/DL (8.5-10.1); Osmolality,Calculated 265.8 MOS/KG (273-304); Potassium 5.1 MMOL/L (3.5-5.1)
[2022-05-04] MEDS ORDERED: VANCOMYCIN INJ 1,500 MG in SODIUM CHLORIDE 0.9% 500 ML IV PRN (18:43)
[2022-05-04] MEDS: PHENYTOIN ER 100 MG CAPSULE PO SCH (21:48)
[2022-05-04] MEDS: APIXABAN 2.5 MG TABLET PO SCH (21:48)
[2022-05-04] MEDS: MIDODRINE 5 MG TABLET PO SCH (21:48)
[2022-05-04] MEDS: MENTHOL/ZINC OXIDE OINT 71 GM JAR TOP SCH (21:51)
[2022-05-05] MEDS ORDERED: LEVOTHYROXINE 50 MCG TABLET PO SCH (06:00)
[2022-05-05 06:20] LABS: Basophils % 0.1 % (0.0-0.8); Eosinophils # 0.2 10*3/uL (0.0-0.87); Eosinophils % 2.6 % (0.00-10.9); Hematocrit 34.7 VOL% (35.7-47.0); Hemoglobin 10.4 GM/DL (12.0-16.0); Immature Granulocytes % 0.4 %; Immature Granulocytes Absolute 0.03 #; Lymphocytes # 2.2 10*3/uL (1.4-4.0); Lymphocytes % 27.2 % (21.3-54.2); Mean Platelet Volume 10.8 FL (9.6-12.0); Monocytes # 0.6 10*3/uL (0.11-0.8); Monocytes % 7.6 % (1.7-12.7); Neutrophils % 62.1 % (38.7-73.9); Platelet Count 168 T/CUMM (130-400); Red Blood Count 3.69 MC/CUMM (3.8-5.5); Red Cell Distribution Width 17.2 % (9.3-17.3); White Blood Count 7.9 T/CUMM (4-12)
[2022-05-05 06:35] LABS: Calcium 8.4 MG/DL (8.5-10.1); Osmolality,Calculated 263.7 MOS/KG (273-304)
[2022-05-05 07:49] LABS: Free T4 (Free Thyroxine) 0.91 NG/DL (0.76-1.46)
[2022-05-05] MEDS ORDERED: LACTOBACILLUS ACIDOPHILUS PO SCH (09:00)
[2022-05-05] MEDS ORDERED: LACTOBACILLUS BULGARICUS PO SCH (09:00)
[2022-05-05] MEDS ORDERED: SODIUM CHLORIDE 0.9% 250 ML IV ONE (09:06)
[2022-05-05] MEDS: MENTHOL/ZINC OXIDE OINT 71 GM JAR TOP SCH ×2 (10:04→21:32)
[2022-05-05] MEDS: PANTOPRAZOLE 40 MG TABLET PO SCH (10:04)
[2022-05-05] MEDS: APIXABAN 2.5 MG TABLET PO SCH ×2 (10:04→21:01)
[2022-05-05] MEDS: CALCIUM ACETATE 667 MG CAPSULE PO SCH ×3 (10:04→16:42)
[2022-05-05] MEDS: MIDODRINE 5 MG TABLET PO SCH ×3 (10:04→21:00)
[2022-05-05] MEDS: HYDROCORTISONE 100 MG VIAL IV SCH ×3 (10:07→21:02)
[2022-05-05] MEDS: LACTATED RINGERS 1,000 ML IV SCH (16:44)
[2022-05-05] MEDS: PHENYTOIN ER 100 MG CAPSULE PO SCH (21:01)
[2022-05-06] MEDS: HYDROCORTISONE 100 MG VIAL IV SCH (03:40)
[2022-05-06] MEDS: LEVOTHYROXINE 75 MCG TABLET PO SCH (05:47)
[2022-05-06 07:36] LABS: Basophils % 0.1 % (0.0-0.8); Eosinophils % 0.1 % (0.00-10.9); Hematocrit 32.5 VOL% (35.7-47.0); Hemoglobin 9.7 GM/DL (12.0-16.0); Immature Granulocytes % 0.6 %; Immature Granulocytes Absolute 0.06 #; Lymphocytes # 1.1 10*3/uL (1.4-4.0); Lymphocytes % 11.8 % (21.3-54.2); Mean Corpuscular HGB Conc 29.8 GM/DL (32-36); Mean Corpuscular Volume 93.9 FL (87-102); Mean Platelet Volume 11.3 FL (9.6-12.0); Monocytes # 0.3 10*3/uL (0.11-0.8); Monocytes % 3.3 % (1.7-12.7); Neutrophils % 84.1 % (38.7-73.9); Platelet Count 189 T/CUMM (130-400); Red Blood Count 3.46 MC/CUMM (3.8-5.5); Red Cell Distribution Width 17.2 % (9.3-17.3); White Blood Count 9.3 T/CUMM (4-12)
[2022-05-06 07:52] LABS: Calcium 8.5 MG/DL (8.5-10.1); Osmolality,Calculated 265.7 MOS/KG (273-304); Potassium 4.4 MMOL/L (3.5-5.1)
[2022-05-06] MEDS: APIXABAN 2.5 MG TABLET PO SCH ×2 (09:41→20:48)
[2022-05-06] MEDS: PANTOPRAZOLE 40 MG TABLET PO SCH (09:41)
[2022-05-06] MEDS: MIDODRINE 5 MG TABLET PO SCH ×3 (09:41→20:48)
[2022-05-06] MEDS: MENTHOL/ZINC OXIDE OINT 71 GM JAR TOP SCH ×2 (09:41→20:54)
[2022-05-06] MEDS: CALCIUM ACETATE 667 MG CAPSULE PO SCH ×3 (09:41→16:54)
[2022-05-06] MEDS: LACTOBACILLUS BULGARICUS PO SCH (09:41)
[2022-05-06] MEDS: LACTOBACILLUS ACIDOPHILUS PO SCH (09:41)
[2022-05-06] MEDS: LACTATED RINGERS 1,000 ML IV SCH (16:54)
[2022-05-06] MEDS: HYDROCORTISONE 10 MG TABLET PO SCH (20:47)
[2022-05-06] MEDS: PHENYTOIN ER 100 MG CAPSULE PO SCH (20:48)
[2022-05-06] MEDS: ALUMINUM/MAGNES/SIMETH MAX STR 30 ML UDCUP PO PRN (22:29)
[2022-05-07 02:27] LABS: Basophils % 0.2 % (0.0-0.8); Eosinophils # 0.1 10*3/uL (0.0-0.87); Eosinophils % 0.8 % (0.00-10.9); Hematocrit 28.8 VOL% (35.7-47.0); Hemoglobin 8.7 GM/DL (12.0-16.0); Immature Granulocytes % 0.3 %; Immature Granulocytes Absolute 0.04 #; Lymphocytes # 1.8 10*3/uL (1.4-4.0); Mean Corpuscular HGB Conc 30.2 GM/DL (32-36); Mean Corpuscular Volume 93.2 FL (87-102); Mean Platelet Volume 10.4 FL (9.6-12.0); Monocytes # 0.7 10*3/uL (0.11-0.8); Monocytes % 5.1 % (1.7-12.7); Neutrophils % 79.6 % (38.7-73.9); Platelet Count 164 T/CUMM (130-400); Red Blood Count 3.09 MC/CUMM (3.8-5.5); Red Cell Distribution Width 17.2 % (9.3-17.3); White Blood Count 12.8 T/CUMM (4-12)
[2022-05-07 02:44] LABS: Calcium 7.8 MG/DL (8.5-10.1); Osmolality,Calculated 259.9 MOS/KG (273-304); Potassium 3.9 MMOL/L (3.5-5.1)
[2022-05-07] MEDS: LEVOTHYROXINE 75 MCG TABLET PO SCH (05:20)
[2022-05-07] MEDS ORDERED: MAGNESIUM SULF RIDER 2 GM/50 ML PREMIX IV ONE ×2 (07:25→09:00)
[2022-05-07] MEDS: APIXABAN 2.5 MG TABLET PO SCH ×2 (09:28→21:35)
[2022-05-07] MEDS: CALCIUM ACETATE 667 MG CAPSULE PO SCH ×3 (09:28→16:57)
[2022-05-07] MEDS: MIDODRINE 5 MG TABLET PO SCH ×3 (09:28→21:35)
[2022-05-07] MEDS: MENTHOL/ZINC OXIDE OINT 71 GM JAR TOP SCH ×2 (09:29→21:36)
[2022-05-07] MEDS: PANTOPRAZOLE 40 MG TABLET PO SCH (09:29)
[2022-05-07] MEDS: HYDROCORTISONE 10 MG TABLET PO SCH ×2 (09:29→21:36)
[2022-05-07] MEDS: LACTOBACILLUS ACIDOPHILUS PO SCH (09:46)
[2022-05-07] MEDS: LACTOBACILLUS BULGARICUS PO SCH (09:46)
[2022-05-07] MEDS: LACTATED RINGERS 1,000 ML IV SCH (12:57)
[2022-05-07 14:44] LABS: % Iron Saturation 104.9 % (18-50); Ferritin 1736.3 ng/mL (8-252)
[2022-05-07 14:48] LABS: Folate 3.13 NG/ML (5.38-24.0); Vitamin B12 > 2000 PG/ML (211-911)
[2022-05-07] MEDS: PHENYTOIN ER 100 MG CAPSULE PO SCH (21:35)
[2022-05-08] MEDS: LEVOTHYROXINE 75 MCG TABLET PO SCH (06:01)
[2022-05-08 06:12] LABS: Basophils % 0.1 % (0.0-0.8); Eosinophils # 0.1 10*3/uL (0.0-0.87); Eosinophils % 0.5 % (0.00-10.9); Hematocrit 28.8 VOL% (35.7-47.0); Immature Granulocytes % 0.4 %; Immature Granulocytes Absolute 0.04 #; Lymphocytes # 1.9 10*3/uL (1.4-4.0); Lymphocytes % 18.6 % (21.3-54.2); Mean Corpuscular HGB Conc 31.3 GM/DL (32-36); Mean Corpuscular Volume 90.6 FL (87-102); Mean Platelet Volume 10.8 FL (9.6-12.0); Monocytes # 0.6 10*3/uL (0.11-0.8); Monocytes % 6.3 % (1.7-12.7); Neutrophils % 74.1 % (38.7-73.9); Platelet Count 168 T/CUMM (130-400); Red Blood Count 3.18 MC/CUMM (3.8-5.5); Red Cell Distribution Width 16.8 % (9.3-17.3); White Blood Count 10.1 T/CUMM (4-12)
[2022-05-08 06:20] LABS: Calcium 8.3 MG/DL (8.5-10.1); Osmolality,Calculated 262.7 MOS/KG (273-304); Potassium 3.6 MMOL/L (3.5-5.1)
[2022-05-08] MEDS ORDERED: SODIUM CHLORIDE 0.9% 250 ML IV ONE (07:53)
[2022-05-08] MEDS: HYDROCORTISONE 10 MG TABLET PO SCH ×2 (08:11→20:18)
[2022-05-08] MEDS: FOLIC ACID 1 MG TABLET PO SCH ×2 (08:11→20:18)
[2022-05-08] MEDS: MIDODRINE 5 MG TABLET PO SCH ×3 (08:11→20:18)
[2022-05-08] MEDS: CHOLECALCIFEROL 5,000 UNIT TABLET PO SCH (08:11)
[2022-05-08] MEDS: CALCIUM ACETATE 667 MG CAPSULE PO SCH ×3 (08:11→17:22)
[2022-05-08] MEDS: APIXABAN 2.5 MG TABLET PO SCH ×2 (08:11→20:18)
[2022-05-08] MEDS: PANTOPRAZOLE 40 MG TABLET PO SCH (08:11)
[2022-05-08] MEDS: MENTHOL/ZINC OXIDE OINT 71 GM JAR TOP SCH ×2 (08:12→20:19)
[2022-05-08] MEDS: ALUMINUM/MAGNES/SIMETH MAX STR 30 ML UDCUP PO PRN ×2 (09:05→17:50)
[2022-05-08] MEDS: BACILLUS COAGULANS CAPLET PO SCH (12:38)
[2022-05-08] MEDS: ALBUMIN 25% 12.5 GM/50 ML VIAL IV SCH ×2 (12:38→20:19)
[2022-05-08] MEDS: LACTOBACILLUS BULGARICUS PO SCH (15:39)
[2022-05-08] MEDS: LACTOBACILLUS ACIDOPHILUS PO SCH (15:39)
[2022-05-08] MEDS: PHENYTOIN ER 100 MG CAPSULE PO SCH (20:18)
[2022-05-09] MEDS: ALBUMIN 25% 12.5 GM/50 ML VIAL IV SCH ×3 (04:49→20:59)
[2022-05-09] MEDS: LEVOTHYROXINE 75 MCG TABLET PO SCH (05:29)
[2022-05-09 06:37] LABS: Basophils % 0.4 % (0.0-0.8); Eosinophils # 0.1 10*3/uL (0.0-0.87); Eosinophils % 1.1 % (0.00-10.9); Hematocrit 26.4 VOL% (35.7-47.0); Hemoglobin 8.2 GM/DL (12.0-16.0); Immature Granulocytes % 0.4 %; Immature Granulocytes Absolute 0.04 #; Lymphocytes # 1.5 10*3/uL (1.4-4.0); Lymphocytes % 16.5 % (21.3-54.2); Mean Corpuscular HGB Conc 31.1 GM/DL (32-36); Mean Corpuscular Volume 90.1 FL (87-102); Mean Platelet Volume 11.2 FL (9.6-12.0); Monocytes # 0.5 10*3/uL (0.11-0.8); Monocytes % 5.4 % (1.7-12.7); Neutrophils % 76.2 % (38.7-73.9); Platelet Count 165 T/CUMM (130-400); Red Blood Count 2.93 MC/CUMM (3.8-5.5); Red Cell Distribution Width 17.1 % (9.3-17.3); White Blood Count 9.2 T/CUMM (4-12)
[2022-05-09 06:53] LABS: Bilirubin,Total 0.8 MG/DL (0.20-1.00); Calcium 8.6 MG/DL (8.5-10.1); Osmolality,Calculated 264.5 MOS/KG (273-304); Potassium 3.1 MMOL/L (3.5-5.1); Total Protein 5.3 G/DL (6.4-8.2)
[2022-05-09] MEDS: FOLIC ACID 1 MG TABLET PO SCH ×2 (08:24→20:59)
[2022-05-09] MEDS: CALCIUM ACETATE 667 MG CAPSULE PO SCH ×3 (08:24→16:26)
[2022-05-09] MEDS: PANTOPRAZOLE 40 MG TABLET PO SCH (08:24)
[2022-05-09] MEDS: MIDODRINE 5 MG TABLET PO SCH ×3 (08:24→20:59)
[2022-05-09] MEDS: HYDROCORTISONE 10 MG TABLET PO SCH ×2 (08:24→20:59)
[2022-05-09] MEDS: APIXABAN 2.5 MG TABLET PO SCH ×2 (08:24→20:59)
[2022-05-09] MEDS: BACILLUS COAGULANS CAPLET PO SCH (08:24)
[2022-05-09] MEDS: MENTHOL/ZINC OXIDE OINT 71 GM JAR TOP SCH ×2 (08:25→21:00)
[2022-05-09] MEDS: CHOLECALCIFEROL 5,000 UNIT TABLET PO SCH (12:26)
[2022-05-09] MEDS: PHENYTOIN ER 100 MG CAPSULE PO SCH (21:00)
[2022-05-10] MEDS: ALBUMIN 25% 12.5 GM/50 ML VIAL IV SCH (04:09)
[2022-05-10 05:29] LABS: Basophils % 0.2 % (0.0-0.8); Eosinophils # 0.1 10*3/uL (0.0-0.87); Eosinophils % 0.9 % (0.00-10.9); Hematocrit 23.7 VOL% (35.7-47.0); Hemoglobin 7.2 GM/DL (12.0-16.0); Immature Granulocytes % 0.3 %; Immature Granulocytes Absolute 0.03 #; Lymphocytes # 1.1 10*3/uL (1.4-4.0); Lymphocytes % 12.3 % (21.3-54.2); Mean Corpuscular HGB Conc 30.4 GM/DL (32-36); Mean Corpuscular Volume 92.9 FL (87-102); Mean Platelet Volume 11.1 FL (9.6-12.0); Monocytes # 0.4 10*3/uL (0.11-0.8); Monocytes % 4.5 % (1.7-12.7); Neutrophils % 81.8 % (38.7-73.9); Platelet Count 133 T/CUMM (130-400); Red Blood Count 2.55 MC/CUMM (3.8-5.5); Red Cell Distribution Width 17.2 % (9.3-17.3)
[2022-05-10 06:00] LABS: Albumin 2.3 G/DL (3.4-5.0); Bilirubin,Total 0.8 MG/DL (0.20-1.00); Calcium 8.4 MG/DL (8.5-10.1); Osmolality,Calculated 266.2 MOS/KG (273-304); Potassium 2.8 MMOL/L (3.5-5.1); Total Protein 4.9 G/DL (6.4-8.2)
[2022-05-10] MEDS: LEVOTHYROXINE 75 MCG TABLET PO SCH (07:41)
[2022-05-10] MEDS ORDERED: VANCOMYCIN INJ 1,000 MG in SODIUM CHLORIDE 0.9% 250 ML IV PRN (09:32)
[2022-05-10] MEDS: POTASSIUM CHLORIDE RIDER 10 MEQ/100 ML PREMIX IV SCH ×3 (09:38→12:15)
[2022-05-10 09:54] LABS: Basophils % 0.3 % (0.0-0.8); Eosinophils # 0.1 10*3/uL (0.0-0.87); Eosinophils % 1.2 % (0.00-10.9); Hematocrit 22.5 VOL% (35.7-47.0); Hemoglobin 7.2 GM/DL (12.0-16.0); Immature Granulocytes % 0.3 %; Immature Granulocytes Absolute 0.03 #; Lymphocytes # 1.7 10*3/uL (1.4-4.0); Mean Corpuscular Volume 89.3 FL (87-102); Mean Platelet Volume 12.8 FL (9.6-12.0); Monocytes # 0.4 10*3/uL (0.11-0.8); Monocytes % 5.1 % (1.7-12.7); Neutrophils % 74.1 % (38.7-73.9); Platelet Count 174 T/CUMM (130-400); Red Blood Count 2.52 MC/CUMM (3.8-5.5); Red Cell Distribution Width 17.5 % (9.3-17.3); White Blood Count 8.7 T/CUMM (4-12)
[2022-05-10] MEDS ORDERED: VANCOMYCIN INJ 1,000 MG in SODIUM CHLORIDE 0.9% 250 ML IV ONE (10:00)
[2022-05-10] MEDS: MENTHOL/ZINC OXIDE OINT 71 GM JAR TOP SCH ×2 (10:25→22:47)
[2022-05-10] MEDS: CALCIUM ACETATE 667 MG CAPSULE PO SCH ×3 (13:03→17:02)
[2022-05-10] MEDS: APIXABAN 2.5 MG TABLET PO SCH (13:04)
[2022-05-10] MEDS: ASPIRIN EC 81 MG TABLET PO SCH (13:04)
[2022-05-10] MEDS: BACILLUS COAGULANS CAPLET PO SCH (13:04)
[2022-05-10] MEDS: HYDROCORTISONE 10 MG TABLET PO SCH ×2 (13:04→22:46)
[2022-05-10] MEDS: FOLIC ACID 1 MG TABLET PO SCH ×2 (13:04→22:46)
[2022-05-10] MEDS: PANTOPRAZOLE 40 MG TABLET PO SCH (13:05)
[2022-05-10] MEDS: MIDODRINE 5 MG TABLET PO SCH ×3 (13:05→22:46)
[2022-05-10] MEDS: CHOLECALCIFEROL 5,000 UNIT TABLET PO SCH (13:05)
[2022-05-10] MEDS ORDERED: FLUCONAZOLE 200 MG TABLET PO ONE (15:17)
[2022-05-10] MEDS: NYSTATIN 500,000 UNIT/5 ML UDCUP SWISH/SWAL SCH ×2 (17:02→22:45)
[2022-05-10] MEDS: PHENYTOIN ER 100 MG CAPSULE PO SCH (22:45)
[2022-05-11] MEDS: LEVOTHYROXINE 75 MCG TABLET PO SCH (05:44)
[2022-05-11 08:12] LABS: Basophils % 0.2 % (0.0-0.8); Eosinophils # 0.1 10*3/uL (0.0-0.87); Eosinophils % 1.2 % (0.00-10.9); Hematocrit 25.1 VOL% (35.7-47.0); Hemoglobin 7.8 GM/DL (12.0-16.0); Immature Granulocytes % 0.3 %; Immature Granulocytes Absolute 0.03 #; Lymphocytes # 1.2 10*3/uL (1.4-4.0); Lymphocytes % 13.3 % (21.3-54.2); Mean Corpuscular HGB Conc 31.1 GM/DL (32-36); Mean Corpuscular Volume 92.3 FL (87-102); Mean Platelet Volume 11.2 FL (9.6-12.0); Monocytes # 0.4 10*3/uL (0.11-0.8); Monocytes % 4.1 % (1.7-12.7); Neutrophils % 80.9 % (38.7-73.9); Red Blood Count 2.72 MC/CUMM (3.8-5.5); Red Cell Distribution Width 17.2 % (9.3-17.3); White Blood Count 8.9 T/CUMM (4-12)
[2022-05-11 08:13] LABS: Platelet Count 126 T/CUMM (130-400)
[2022-05-11 08:32] LABS: Calcium 8.7 MG/DL (8.5-10.1); Osmolality,Calculated 265.4 MOS/KG (273-304); Potassium 3.5 MMOL/L (3.5-5.1)
[2022-05-11] MEDS ORDERED: FLUCONAZOLE 100 MG TABLET PO SCH (09:00)
[2022-05-11] MEDS: BACILLUS COAGULANS CAPLET PO SCH (09:11)
[2022-05-11] MEDS: ASPIRIN EC 81 MG TABLET PO SCH (09:11)
[2022-05-11] MEDS: HYDROCORTISONE 10 MG TABLET PO SCH ×2 (09:11→21:58)
[2022-05-11] MEDS: FOLIC ACID 1 MG TABLET PO SCH ×2 (09:12→21:58)
[2022-05-11] MEDS: PANTOPRAZOLE 40 MG TABLET PO SCH (09:12)
[2022-05-11] MEDS: CALCIUM ACETATE 667 MG CAPSULE PO SCH ×3 (09:12→16:03)
[2022-05-11] MEDS: NYSTATIN 500,000 UNIT/5 ML UDCUP SWISH/SWAL SCH ×4 (09:12→21:58)
[2022-05-11] MEDS: CHOLECALCIFEROL 5,000 UNIT TABLET PO SCH (09:12)
[2022-05-11] MEDS: MIDODRINE 5 MG TABLET PO SCH ×3 (09:12→21:58)
[2022-05-11] MEDS: MENTHOL/ZINC OXIDE OINT 71 GM JAR TOP SCH (09:13)
[2022-05-11] MEDS: PHENYTOIN ER 100 MG CAPSULE PO SCH (21:58)
[2022-05-12] MEDS: MENTHOL/ZINC OXIDE OINT 71 GM JAR TOP SCH ×3 (00:25→22:33)
[2022-05-12 04:35] LABS: Basophils % 0.3 % (0.0-0.8); Eosinophils # 0.1 10*3/uL (0.0-0.87); Eosinophils % 1.1 % (0.00-10.9); Hematocrit 24.5 VOL% (35.7-47.0); Hemoglobin 7.6 GM/DL (12.0-16.0); Immature Granulocytes % 0.5 %; Immature Granulocytes Absolute 0.05 #; Lymphocytes # 1.5 10*3/uL (1.4-4.0); Lymphocytes % 14.7 % (21.3-54.2); Mean Corpuscular Volume 93.2 FL (87-102); Mean Platelet Volume 11.3 FL (9.6-12.0); Monocytes # 0.5 10*3/uL (0.11-0.8); Monocytes % 4.4 % (1.7-12.7); Platelet Count 123 T/CUMM (130-400); Red Blood Count 2.63 MC/CUMM (3.8-5.5); White Blood Count 10.2 T/CUMM (4-12)
[2022-05-12 04:46] LABS: Calcium 8.5 MG/DL (8.5-10.1); Osmolality,Calculated 267.2 MOS/KG (273-304); Potassium 3.2 MMOL/L (3.5-5.1)
[2022-05-12 05:01] LABS: Anisocytosis 1+; Poikilocytosis 1+; Target Cells 1+
[2022-05-12 05:02] LABS: Platelet Estimate Normal
[2022-05-12] MEDS: CALCIUM ACETATE 667 MG CAPSULE PO SCH ×3 (07:13→17:04)
[2022-05-12] MEDS: LEVOTHYROXINE 75 MCG TABLET PO SCH (07:13)
[2022-05-12] MEDS: MIDODRINE 5 MG TABLET PO SCH ×3 (09:18→22:33)
[2022-05-12] MEDS: SODIUM CHLORIDE 0.9% 500 ML IV SCH (09:18)
[2022-05-12] MEDS: POTASSIUM CHLORIDE RIDER 10 MEQ/100 ML PREMIX IV SCH ×5 (09:22→15:56)
[2022-05-12] MEDS: ASPIRIN EC 81 MG TABLET PO SCH (10:10)
[2022-05-12] MEDS: HYDROCORTISONE 10 MG TABLET PO SCH ×2 (10:10→22:33)
[2022-05-12] MEDS: BACILLUS COAGULANS CAPLET PO SCH (10:10)
[2022-05-12] MEDS: PANTOPRAZOLE 40 MG TABLET PO SCH (10:11)
[2022-05-12] MEDS: FOLIC ACID 1 MG TABLET PO SCH ×2 (10:11→22:33)
[2022-05-12] MEDS: NYSTATIN 500,000 UNIT/5 ML UDCUP SWISH/SWAL SCH ×4 (10:11→22:32)
[2022-05-12] MEDS: CHOLECALCIFEROL 5,000 UNIT TABLET PO SCH (10:11)
[2022-05-12] MEDS ORDERED: ETOMIDATE 20 MG/10 ML VIAL IV ONE (12:38)
[2022-05-12] MEDS ORDERED: LIDOCAINE 2% 5 ML VIAL ONE (12:38)
[2022-05-12] MEDS ORDERED: propofoL 200 MG/20 ML VIAL IV ONE (12:38)
[2022-05-12] MEDS ORDERED: PHENYLEPHRINE 1 MG/10 ML SYRINGE IV ONE (12:52)
[2022-05-12] MEDS: SUCRALFATE 1 GM/10 ML UDCUP PO SCH (17:04)
[2022-05-12] MEDS ORDERED: EPOETIN ALFA-EPBX 10,000 UNIT/ML VIAL SUBCUT ONE ×2 (17:32→21:00)
[2022-05-12] MEDS: PHENYTOIN ER 100 MG CAPSULE PO SCH (22:33)
[2022-05-13 05:50] LABS: Basophils % 0.4 % (0.0-0.8); Eosinophils # 0.1 10*3/uL (0.0-0.87); Eosinophils % 1.5 % (0.00-10.9); Hematocrit 25.2 VOL% (35.7-47.0); Hemoglobin 7.6 GM/DL (12.0-16.0); Immature Granulocytes % 0.4 %; Immature Granulocytes Absolute 0.03 #; Lymphocytes # 1.4 10*3/uL (1.4-4.0); Lymphocytes % 16.7 % (21.3-54.2); Mean Corpuscular HGB Conc 30.2 GM/DL (32-36); Mean Platelet Volume 11.6 FL (9.6-12.0); Monocytes # 0.4 10*3/uL (0.11-0.8); Platelet Count 124 T/CUMM (130-400); Red Blood Count 2.68 MC/CUMM (3.8-5.5); White Blood Count 8.1 T/CUMM (4-12)
[2022-05-13] MEDS: LEVOTHYROXINE 75 MCG TABLET PO SCH (05:52)
[2022-05-13 06:08] LABS: Calcium 8.1 MG/DL (8.5-10.1); Osmolality,Calculated 262.5 MOS/KG (273-304); Potassium 3.4 MMOL/L (3.5-5.1)
[2022-05-13 06:12] LABS: Eosinophils 2 % (0-10); Hypochromia Slight; Lymphocytes 7 % (20-55); Macrocytosis Slight; Platelet Estimate Normal; Total Cells Counted 100
[2022-05-13] MEDS: SODIUM CHLORIDE 0.9% 500 ML IV SCH (07:14)
[2022-05-13] MEDS: MIDODRINE 5 MG TABLET PO SCH ×3 (08:41→21:40)
[2022-05-13] MEDS: SUCRALFATE 1 GM/10 ML UDCUP PO SCH ×2 (08:51→16:56)
[2022-05-13] MEDS: ASPIRIN EC 81 MG TABLET PO SCH (09:21)
[2022-05-13] MEDS: CALCIUM ACETATE 667 MG CAPSULE PO SCH ×3 (09:21→16:56)
[2022-05-13] MEDS: BACILLUS COAGULANS CAPLET PO SCH (09:22)
[2022-05-13] MEDS: NYSTATIN 500,000 UNIT/5 ML UDCUP SWISH/SWAL SCH ×4 (09:22→21:40)
[2022-05-13] MEDS: PANTOPRAZOLE 40 MG TABLET PO SCH (09:22)
[2022-05-13] MEDS: FOLIC ACID 1 MG TABLET PO SCH ×2 (09:22→21:40)
[2022-05-13] MEDS: HYDROCORTISONE 10 MG TABLET PO SCH (09:22)
[2022-05-13] MEDS: CHOLECALCIFEROL 5,000 UNIT TABLET PO SCH (09:22)
[2022-05-13] MEDS: MENTHOL/ZINC OXIDE OINT 71 GM JAR TOP SCH ×2 (09:42→21:39)
[2022-05-13] MEDS ORDERED: ETOMIDATE 20 MG/10 ML VIAL IV ONE (13:13)
[2022-05-13] MEDS ORDERED: LIDOCAINE 2% 5 ML VIAL ONE (13:13)
[2022-05-13] MEDS ORDERED: propofoL 200 MG/20 ML VIAL IV ONE (13:13)
[2022-05-13] MEDS ORDERED: GLYCOPYRROLATE 0.4 MG/2 ML VIAL ONE (13:13)
[2022-05-13] MEDS ORDERED: PHENYLEPHRINE 1 MG/10 ML SYRINGE IV ONE (13:20)
[2022-05-13] MEDS: POTASSIUM CHLORIDE RIDER 10 MEQ/100 ML PREMIX IV SCH ×5 (15:39→18:18)
[2022-05-13] MEDS: PHENYTOIN ER 100 MG CAPSULE PO SCH (21:40)
[2022-05-14] MEDS: LEVOTHYROXINE 75 MCG TABLET PO SCH (05:14)
[2022-05-14 05:27] LABS: Basophils # 0.1 10*3/uL (0.0-0.2); Basophils % 1.1 % (0.0-0.8); Eosinophils # 0.3 10*3/uL (0.0-0.87); Eosinophils % 3.7 % (0.00-10.9); Hematocrit 24.5 VOL% (35.7-47.0); Hemoglobin 7.5 GM/DL (12.0-16.0); Immature Granulocytes % 0.3 %; Immature Granulocytes Absolute 0.02 #; Lymphocytes # 1.8 10*3/uL (1.4-4.0); Lymphocytes % 25.6 % (21.3-54.2); Mean Corpuscular HGB Conc 30.6 GM/DL (32-36); Mean Corpuscular Volume 92.8 FL (87-102); Mean Platelet Volume 12.2 FL (9.6-12.0); Monocytes # 0.6 10*3/uL (0.11-0.8); Monocytes % 7.7 % (1.7-12.7); Neutrophils % 61.6 % (38.7-73.9); Platelet Count 131 T/CUMM (130-400); Red Blood Count 2.64 MC/CUMM (3.8-5.5); Red Cell Distribution Width 16.9 % (9.3-17.3); White Blood Count 7.1 T/CUMM (4-12)
[2022-05-14 05:52] LABS: Osmolality,Calculated 263.5 MOS/KG (273-304); Potassium 3.5 MMOL/L (3.5-5.1)
[2022-05-14] MEDS: NYSTATIN 500,000 UNIT/5 ML UDCUP SWISH/SWAL SCH ×2 (09:01→12:25)
[2022-05-14] MEDS: CALCIUM ACETATE 667 MG CAPSULE PO SCH ×2 (09:02→12:25)
[2022-05-14] MEDS: BACILLUS COAGULANS CAPLET PO SCH (09:02)
[2022-05-14] MEDS: FOLIC ACID 1 MG TABLET PO SCH (09:02)
[2022-05-14] MEDS: ASPIRIN EC 81 MG TABLET PO SCH (09:02)
[2022-05-14] MEDS: SUCRALFATE 1 GM/10 ML UDCUP PO SCH (09:02)
[2022-05-14] MEDS: CHOLECALCIFEROL 5,000 UNIT TABLET PO SCH (09:02)
[2022-05-14] MEDS: PANTOPRAZOLE 40 MG TABLET PO SCH (09:02)
[2022-05-14] MEDS: MIDODRINE 5 MG TABLET PO SCH (09:02)
[2022-05-14] MEDS ORDERED: SODIUM CHLORIDE 0.9% 500 ML IV ONE (10:35)
[2022-05-14] MEDS ORDERED: VANCOMYCIN INJ 1,000 MG in SODIUM CHLORIDE 0.9% 250 ML IV ONE (11:00)
[2022-05-14 17:28] VITALS: BP 88/57
== END 2022-05-14 17:06 | disposition home health service (06) | DRG 312 ==
LOC: EDBD → EDUNIT# → N.ED 16:29 → N.EDINP 16:29 → N.3E 20:27
PROVIDERS: ADMIT Internal Medicine; ATTEND Internal Medicine

== ENCOUNTER 2022-05-16 10:18 | Inpatient (IN) ==
[2022-05-16] MEDS ORDERED: SODIUM CHLORIDE 0.9% 500 ML IV STA (11:04)
[2022-05-16 12:36] LABS: Basophils # 0.1 10*3/uL (0.0-0.2); Basophils % 0.6 % (0.0-0.8); Eosinophils # 0.2 10*3/uL (0.0-0.87); Eosinophils % 2.3 % (0.00-10.9); Hematocrit 27.3 VOL% (35.7-47.0); Hemoglobin 8.5 GM/DL (12.0-16.0); Immature Granulocytes % 0.4 %; Immature Granulocytes Absolute 0.03 #; Lymphocytes # 1.3 10*3/uL (1.4-4.0); Lymphocytes % 16.2 % (21.3-54.2); Mean Corpuscular HGB Conc 31.1 GM/DL (32-36); Mean Corpuscular Volume 92.2 FL (87-102); Mean Platelet Volume 11.8 FL (9.6-12.0); Monocytes # 0.4 10*3/uL (0.11-0.8); Monocytes % 5.2 % (1.7-12.7); NRBC # 0.02 10*3/uL; Neutrophils % 75.3 % (38.7-73.9); Platelet Count 187 T/CUMM (130-400); Red Blood Count 2.96 MC/CUMM (3.8-5.5); Red Cell Distribution Width 16.7 % (9.3-17.3); White Blood Count 8.2 T/CUMM (4-12)
[2022-05-16 12:58] LABS: Albumin 1.9 G/DL (3.4-5.0); Bilirubin,Total 0.8 MG/DL (0.20-1.00); Calcium 7.9 MG/DL (8.5-10.1); Osmolality,Calculated 260.8 MOS/KG (273-304); Total Protein 5.4 G/DL (6.4-8.2)
[2022-05-16] MEDS ORDERED: ACETAMINOPHEN 325 MG TABLET PO PRN (14:29)
[2022-05-16] MEDS ORDERED: GLUCAGON 1 MG VIAL IM PRN (14:29)
[2022-05-16] MEDS ORDERED: ONDANSETRON 4 MG/2 ML VIAL IV PRN (14:29)
[2022-05-16] MEDS ORDERED: DEXTROSE 10% 250 ML BAG IV PRN (14:47)
[2022-05-16] MEDS ORDERED: MEROPENEM 500 MG in SODIUM CHLORIDE 0.9% 100 ML IV SCH (15:00)
[2022-05-16] MEDS ORDERED: POTASSIUM CHLORIDE 20 MEQ TABLET PO ONE (16:54)
[2022-05-16] MEDS: FERROUS SULFATE 325 MG TABLET PO SCH (17:58)
[2022-05-16] MEDS ORDERED: ENOXAPARIN 30 MG/0.3 ML SYRINGE SUBCUT SCH (21:00)
[2022-05-16] MEDS: PHENYTOIN ER 100 MG CAPSULE PO SCH (21:57)
[2022-05-16] MEDS: NYSTATIN 500,000 UNIT/5 ML UDCUP SWISH/SWAL SCH (21:57)
[2022-05-16] MEDS: CALCIUM ACETATE 667 MG CAPSULE PO SCH (21:57)
[2022-05-16] MEDS: FOLIC ACID 1 MG TABLET PO SCH (21:57)
[2022-05-16] MEDS: MIDODRINE 5 MG TABLET PO SCH (21:57)
[2022-05-16] MEDS: APIXABAN 2.5 MG TABLET PO SCH (21:57)
[2022-05-17 02:00] LABS: Albumin 1.4 G/DL (3.4-5.0); Bilirubin,Total 0.7 MG/DL (0.20-1.00); Calcium 7.6 MG/DL (8.5-10.1); Osmolality,Calculated 250.5 MOS/KG (273-304); Potassium 3.5 MMOL/L (3.5-5.1); Total Protein 5.1 G/DL (6.4-8.2)
[2022-05-17] MEDS: MENTHOL/ZINC OXIDE OINT 71 GM JAR TOP SCH ×3 (05:57→22:10)
[2022-05-17] MEDS: LEVOTHYROXINE 75 MCG TABLET PO SCH (06:28)
[2022-05-17 08:03] LABS: Basophils # 0.1 10*3/uL (0.0-0.2); Basophils % 0.6 % (0.0-0.8); Eosinophils # 0.2 10*3/uL (0.0-0.87); Eosinophils % 2.9 % (0.00-10.9); Hematocrit 24.5 VOL% (35.7-47.0); Hemoglobin 7.8 GM/DL (12.0-16.0); Immature Granulocytes % 1.2 %; Lymphocytes # 1.8 10*3/uL (1.4-4.0); Lymphocytes % 22.3 % (21.3-54.2); Mean Corpuscular HGB Conc 31.8 GM/DL (32-36); Mean Corpuscular Volume 90.4 FL (87-102); Mean Platelet Volume 11.4 FL (9.6-12.0); Monocytes # 0.6 10*3/uL (0.11-0.8); Monocytes % 7.2 % (1.7-12.7); Neutrophils % 65.8 % (38.7-73.9); Platelet Count 182 T/CUMM (130-400); Red Blood Count 2.71 MC/CUMM (3.8-5.5); Red Cell Distribution Width 16.7 % (9.3-17.3); White Blood Count 8.1 T/CUMM (4-12)
[2022-05-17] MEDS ORDERED: MORPHINE 2 MG/1 ML SYRINGE IV PRN (09:06)
[2022-05-17] MEDS: ASPIRIN EC 81 MG TABLET PO SCH (10:13)
[2022-05-17] MEDS: FOLIC ACID 1 MG TABLET PO SCH ×2 (10:13→22:08)
[2022-05-17] MEDS: FERROUS SULFATE 325 MG TABLET PO SCH ×2 (10:13→17:14)
[2022-05-17] MEDS: PANTOPRAZOLE 40 MG TABLET PO SCH (10:13)
[2022-05-17] MEDS: CALCIUM ACETATE 667 MG CAPSULE PO SCH ×3 (10:13→17:14)
[2022-05-17] MEDS: BACILLUS COAGULANS CAPLET PO SCH (10:13)
[2022-05-17] MEDS: NYSTATIN 500,000 UNIT/5 ML UDCUP SWISH/SWAL SCH ×4 (10:14→22:09)
[2022-05-17] MEDS: APIXABAN 2.5 MG TABLET PO SCH ×2 (10:14→22:09)
[2022-05-17] MEDS: SUCRALFATE 1 GM/10 ML UDCUP PO SCH ×2 (10:14→15:40)
[2022-05-17] MEDS: MAGNESIUM OXIDE 400 MG TABLET PO SCH (10:14)
[2022-05-17] MEDS: CHOLECALCIFEROL 5,000 UNIT TABLET PO SCH (10:16)
[2022-05-17] MEDS: MIDODRINE 5 MG TABLET PO SCH (10:21)
[2022-05-17] MEDS: MIDODRINE 2.5 MG TABLET PO SCH ×2 (15:41→22:09)
[2022-05-17] MEDS ORDERED: MEROPENEM 500 MG in SODIUM CHLORIDE 0.9% 100 ML IV SCH (18:00)
[2022-05-17] MEDS ORDERED: EPOETIN ALFA-EPBX 10,000 UNIT/ML VIAL SUBCUT ONE (19:45)
[2022-05-17] MEDS: PHENYTOIN ER 100 MG CAPSULE PO SCH (22:08)
[2022-05-18 05:37] LABS: Basophils # 0.1 10*3/uL (0.0-0.2); Eosinophils # 0.3 10*3/uL (0.0-0.87); Eosinophils % 4.1 % (0.00-10.9); Hematocrit 30.9 VOL% (35.7-47.0); Hemoglobin 9.6 GM/DL (12.0-16.0); Immature Granulocytes % 0.5 %; Immature Granulocytes Absolute 0.03 #; Lymphocytes # 1.4 10*3/uL (1.4-4.0); Lymphocytes % 22.3 % (21.3-54.2); Mean Corpuscular HGB Conc 31.1 GM/DL (32-36); Mean Corpuscular Volume 91.7 FL (87-102); Mean Platelet Volume 12.7 FL (9.6-12.0); Monocytes # 0.4 10*3/uL (0.11-0.8); Monocytes % 6.4 % (1.7-12.7); Neutrophils % 65.7 % (38.7-73.9); Platelet Count 81 T/CUMM (130-400); Red Blood Count 3.37 MC/CUMM (3.8-5.5); Red Cell Distribution Width 17.4 % (9.3-17.3); White Blood Count 6.3 T/CUMM (4-12)
[2022-05-18] MEDS: LEVOTHYROXINE 75 MCG TABLET PO SCH (06:13)
[2022-05-18] MEDS: CALCIUM ACETATE 667 MG CAPSULE PO SCH ×2 (08:45→12:32)
[2022-05-18] MEDS: SUCRALFATE 1 GM/10 ML UDCUP PO SCH ×2 (08:45→17:26)
[2022-05-18] MEDS: FERROUS SULFATE 325 MG TABLET PO SCH ×2 (08:45→17:26)
[2022-05-18] MEDS: APIXABAN 2.5 MG TABLET PO SCH ×2 (08:46→21:55)
[2022-05-18] MEDS: PANTOPRAZOLE 40 MG TABLET PO SCH (08:46)
[2022-05-18] MEDS: FOLIC ACID 1 MG TABLET PO SCH ×2 (08:46→21:55)
[2022-05-18] MEDS: CHOLECALCIFEROL 5,000 UNIT TABLET PO SCH (08:46)
[2022-05-18] MEDS: BACILLUS COAGULANS CAPLET PO SCH (08:47)
[2022-05-18] MEDS: MAGNESIUM OXIDE 400 MG TABLET PO SCH (08:47)
[2022-05-18] MEDS: NYSTATIN 500,000 UNIT/5 ML UDCUP SWISH/SWAL SCH ×4 (08:47→21:55)
[2022-05-18] MEDS: ASPIRIN EC 81 MG TABLET PO SCH (08:47)
[2022-05-18 08:49] LABS: Albumin 1.8 G/DL (3.4-5.0); Bilirubin,Total 0.5 MG/DL (0.20-1.00); Osmolality,Calculated 256.2 MOS/KG (273-304); Phosphorous 1.6 MG/DL (2.5-4.9); Potassium 3.7 MMOL/L (3.5-5.1)
[2022-05-18] MEDS: MENTHOL/ZINC OXIDE OINT 71 GM JAR TOP SCH ×2 (08:52→21:55)
[2022-05-18] MEDS ORDERED: MIDODRINE 5 MG TABLET PO SCH (09:00)
[2022-05-18] MEDS: MIDODRINE 5 MG TABLET PO SCH ×2 (12:32→17:26)
[2022-05-18] MEDS: PHENYTOIN ER 100 MG CAPSULE PO SCH (21:54)
[2022-05-19] MEDS: LEVOTHYROXINE 75 MCG TABLET PO SCH (05:23)
[2022-05-19] MEDS: BACILLUS COAGULANS CAPLET PO SCH (09:04)
[2022-05-19] MEDS: PANTOPRAZOLE 40 MG TABLET PO SCH (09:05)
[2022-05-19] MEDS: MIDODRINE 5 MG TABLET PO SCH ×3 (09:05→16:41)
[2022-05-19] MEDS: APIXABAN 2.5 MG TABLET PO SCH ×2 (09:05→22:12)
[2022-05-19] MEDS: ASPIRIN EC 81 MG TABLET PO SCH (09:05)
[2022-05-19] MEDS: SUCRALFATE 1 GM/10 ML UDCUP PO SCH ×2 (09:06→16:41)
[2022-05-19] MEDS: NYSTATIN 500,000 UNIT/5 ML UDCUP SWISH/SWAL SCH ×4 (09:06→22:12)
[2022-05-19] MEDS: CHOLECALCIFEROL 5,000 UNIT TABLET PO SCH (09:06)
[2022-05-19] MEDS: FOLIC ACID 1 MG TABLET PO SCH ×2 (09:06→22:12)
[2022-05-19] MEDS: MAGNESIUM OXIDE 400 MG TABLET PO SCH (09:06)
[2022-05-19] MEDS: FERROUS SULFATE 325 MG TABLET PO SCH ×2 (09:07→16:41)
[2022-05-19] MEDS: MENTHOL/ZINC OXIDE OINT 71 GM JAR TOP SCH ×2 (09:07→22:13)
[2022-05-19 09:36] LABS: Albumin 1.7 G/DL (3.4-5.0); Bilirubin,Total 0.6 MG/DL (0.20-1.00); Calcium 7.9 MG/DL (8.5-10.1); Osmolality,Calculated 262.7 MOS/KG (273-304); Potassium 2.9 MMOL/L (3.5-5.1)
[2022-05-19] MEDS ORDERED: POTASSIUM CHLORIDE 20 MEQ TABLET PO ONE (12:27)
[2022-05-19] MEDS: DICYCLOMINE 10 MG CAPSULE PO SCH ×3 (12:36→22:12)
[2022-05-19] MEDS: PHENYTOIN ER 100 MG CAPSULE PO SCH (22:12)
[2022-05-20] MEDS: POTASSIUM CHLORIDE 20 MEQ/10 ML VIAL INTRAPERIT SCH ×3 (01:05→15:04)
[2022-05-20] MEDS: LEVOTHYROXINE 75 MCG TABLET PO SCH (06:03)
[2022-05-20 06:49] LABS: Basophils # 0.1 10*3/uL (0.0-0.2); Basophils % 1.1 % (0.0-0.8); Eosinophils # 0.3 10*3/uL (0.0-0.87); Eosinophils % 5.4 % (0.00-10.9); Hematocrit 23.7 VOL% (35.7-47.0); Hemoglobin 7.6 GM/DL (12.0-16.0); Immature Granulocytes % 0.2 %; Immature Granulocytes Absolute 0.01 #; Lymphocytes # 1.7 10*3/uL (1.4-4.0); Lymphocytes % 27.5 % (21.3-54.2); Mean Corpuscular HGB Conc 32.1 GM/DL (32-36); Mean Corpuscular Volume 90.1 FL (87-102); Mean Platelet Volume 10.6 FL (9.6-12.0); Monocytes # 0.5 10*3/uL (0.11-0.8); Monocytes % 8.5 % (1.7-12.7); Neutrophils % 57.3 % (38.7-73.9); Platelet Count 212 T/CUMM (130-400); Red Blood Count 2.63 MC/CUMM (3.8-5.5); Red Cell Distribution Width 17.8 % (9.3-17.3); White Blood Count 6.1 T/CUMM (4-12)
[2022-05-20 07:19] LABS: Albumin 1.8 G/DL (3.4-5.0); Bilirubin,Total 0.5 MG/DL (0.20-1.00); Calcium 8.2 MG/DL (8.5-10.1); Osmolality,Calculated 261.8 MOS/KG (273-304); Potassium 3.4 MMOL/L (3.5-5.1); Total Protein 4.9 G/DL (6.4-8.2)
[2022-05-20] MEDS: FERROUS SULFATE 325 MG TABLET PO SCH ×2 (10:03→17:38)
[2022-05-20] MEDS: ASPIRIN EC 81 MG TABLET PO SCH (10:04)
[2022-05-20] MEDS: MAGNESIUM OXIDE 400 MG TABLET PO SCH (10:04)
[2022-05-20] MEDS: PANTOPRAZOLE 40 MG TABLET PO SCH (10:04)
[2022-05-20] MEDS: BACILLUS COAGULANS CAPLET PO SCH (10:04)
[2022-05-20] MEDS: APIXABAN 2.5 MG TABLET PO SCH ×2 (10:04→22:22)
[2022-05-20] MEDS: MIDODRINE 5 MG TABLET PO SCH ×3 (10:04→17:38)
[2022-05-20] MEDS: SUCRALFATE 1 GM/10 ML UDCUP PO SCH ×2 (10:05→16:48)
[2022-05-20] MEDS: NYSTATIN 500,000 UNIT/5 ML UDCUP SWISH/SWAL SCH ×4 (10:05→22:22)
[2022-05-20] MEDS: FOLIC ACID 1 MG TABLET PO SCH ×2 (10:05→22:22)
[2022-05-20] MEDS: DICYCLOMINE 10 MG CAPSULE PO SCH ×4 (10:05→22:21)
[2022-05-20] MEDS: CHOLECALCIFEROL 5,000 UNIT TABLET PO SCH (10:05)
[2022-05-20] MEDS: MENTHOL/ZINC OXIDE OINT 71 GM JAR TOP SCH ×2 (10:06→22:22)
[2022-05-20] MEDS: PHENYTOIN ER 100 MG CAPSULE PO SCH (22:22)
[2022-05-21] MEDS: POTASSIUM CHLORIDE 20 MEQ/10 ML VIAL INTRAPERIT SCH ×5 (00:35→19:02)
[2022-05-21 04:32] LABS: Basophils # 0.1 10*3/uL (0.0-0.2); Eosinophils # 0.4 10*3/uL (0.0-0.87); Hematocrit 28.9 VOL% (35.7-47.0); Hemoglobin 8.8 GM/DL (12.0-16.0); Immature Granulocytes % 0.3 %; Immature Granulocytes Absolute 0.02 #; Lymphocytes # 2.4 10*3/uL (1.4-4.0); Lymphocytes % 32.7 % (21.3-54.2); Mean Corpuscular HGB Conc 30.4 GM/DL (32-36); Mean Corpuscular Volume 93.5 FL (87-102); Mean Platelet Volume 10.7 FL (9.6-12.0); Monocytes # 0.7 10*3/uL (0.11-0.8); Monocytes % 9.8 % (1.7-12.7); Neutrophils % 50.2 % (38.7-73.9); Platelet Count 218 T/CUMM (130-400); Red Blood Count 3.09 MC/CUMM (3.8-5.5); Red Cell Distribution Width 18.5 % (9.3-17.3); White Blood Count 7.3 T/CUMM (4-12)
[2022-05-21 05:06] LABS: Phosphorous 1.3 MG/DL (2.5-4.9)
[2022-05-21 05:22] LABS: Albumin 1.6 G/DL (3.4-5.0); Bilirubin,Total 0.6 MG/DL (0.20-1.00); Calcium 7.9 MG/DL (8.5-10.1); Osmolality,Calculated 263.5 MOS/KG (273-304); Potassium 4.8 MMOL/L (3.5-5.1); Total Protein 5.3 G/DL (6.4-8.2)
[2022-05-21] MEDS: LEVOTHYROXINE 75 MCG TABLET PO SCH (06:06)
[2022-05-21] MEDS ORDERED: EPOETIN ALFA-EPBX 10,000 UNIT/ML VIAL SUBCUT SCH (08:00)
[2022-05-21] MEDS: CHOLECALCIFEROL 5,000 UNIT TABLET PO SCH (09:41)
[2022-05-21] MEDS: NYSTATIN 500,000 UNIT/5 ML UDCUP SWISH/SWAL SCH ×3 (09:41→17:06)
[2022-05-21] MEDS: FERROUS SULFATE 325 MG TABLET PO SCH ×2 (09:41→17:06)
[2022-05-21] MEDS: DICYCLOMINE 10 MG CAPSULE PO SCH ×3 (09:43→17:06)
[2022-05-21] MEDS: ASPIRIN EC 81 MG TABLET PO SCH (09:43)
[2022-05-21] MEDS: MAGNESIUM OXIDE 400 MG TABLET PO SCH (09:43)
[2022-05-21] MEDS: MENTHOL/ZINC OXIDE OINT 71 GM JAR TOP SCH (09:43)
[2022-05-21] MEDS: PANTOPRAZOLE 40 MG TABLET PO SCH (09:43)
[2022-05-21] MEDS: APIXABAN 2.5 MG TABLET PO SCH (09:43)
[2022-05-21] MEDS: MIDODRINE 5 MG TABLET PO SCH ×3 (12:55→17:06)
[2022-05-21] MEDS: BACILLUS COAGULANS CAPLET PO SCH (12:55)
[2022-05-21] MEDS: FOLIC ACID 1 MG TABLET PO SCH (12:56)
[2022-05-21 16:43] VITALS: BP 93/73
== END 2022-05-21 18:47 | disposition home health service (06) | DRG 314 ==
LOC: EDUNIT# → EDBD → N.ED 10:18 → N.TELEN 10:18 → SUATTDRO 05-18 14:04
PROVIDERS: ADMIT Family Medicine; ATTEND Internal Medicine